=== PATIENT | female | born 1980 | race Caucasian/White ===

== ENCOUNTER → 2020-07-16 16:58 | Outpatient (CLI) | payer OTHER, SELFPAY ==
--- NOTE | 2020-07-16 17:06 | MRI_ITS ---
STUDY: MRI CERVICAL SPINE WITHOUT CONTRAST REASON FOR EXAM: Female, 39 years old. Chronic neck pain, radiation to arms TECHNIQUE: Standardized fat and water weighted pulse sequences were obtained in the sagittal and axial planes. COMPARISON: None FINDINGS: Craniocervical junction and cervical spine are intact and aligned with normal marrow and paraspinal soft tissues. Spinal cord is minimally compressed at C6-C7 due to ventral spondylosis. Remainder of the levels have patent canal. Foramina are patent at all levels. Spinal cord is normal in size, shape and signal. MRI/Spine Cervical (Routine) IMPRESSION: 1. Minimal spondylotic cord compression at C6-C7. Electronically Signed: Georges Santos, at 19:01 EDT Tel , Service support ,
== END ==
PROVIDERS: Referring Provider Chiropractor; Visit Provider Chiropractor
DX: M54.12 Radiculopathy, cervical region (principal)
CPT/HCPCS: 72141

== ENCOUNTER → 2020-09-01 15:52 | Outpatient (CLI) | payer OTHER, SELFPAY ==
[2020-09-01 15:13] VITALS: BMI 32.3
[2020-09-01 15:54] LABS: Mucous, Urine 0 SEEN /hpf (<or=2+)
[2020-09-01 16:50] LABS: Color, Urine Yellow (Yellow); Glucose, Dipstick Normal (Normal); Ketone-Dipstick 5 mg/dl (Negative); Leukocyte Esterase-Dipstick 500 /ul (Negative); Nitrite-Dipstick Negative (Negative); Occult Blood-Urine 10 /ul (Negative); Protein-Dipstick 15 mg/dl (Negative); Specific Gravity, Urine 1.025 (1.002-1.030); Urine Bilirubin Dipstick Negative (Negative); Urine Clarity Cloudy (Clear); Urine Urobilinogen 4 mg/dl (Normal)
[2020-09-01 16:54] LABS: Absolute Lymphocyte Count 5.13 X10^3/uL (0.83-4.51); Absolute Neutrophil Count 6.5 X10^3/uL (2.0-7.7); Basophil# 0.09 X10^3/uL; Basophil% 0.7 % (0-1); Eosinophils% 3.8 % (0-5); Hematocrit 50.1 % (37-47); Hemoglobin 15.9 g/dL (12.0-15.0); Lymphocyte # 5.13 X10^3/ul (4.0); Lymphocyte % 39.4 % (19-41); Mean Corp Hgb Conc 31.7 g/dL (32-36); Mean Corpuscular Hgb 28.7 pg (27.0-32.0); Mean Corpuscular Volume 90.4 fL (81-99); Mean Platelet Vol. 10.9 fl (6.2-12.0); Monocyte# 0.81 X10^3/uL; Monocyte% 6.2 % (0-10); NRBC Flagged by Analyzer 0 % (0-5); Neutrophil # 6.45 X10^3/uL (2.7-7.7); Neutrophil % 49.5 % (47-70); POSITIVE DIFFERENTIAL YES; Platelet Count 388 K/mm3 (150-450); RBC Distribution Width CV 12.9 % (11.6-14.6); RBC Distribution Width SD 43.2 fl (35.1-43.9); Red Blood Count 5.54 M/mm3 (4.2-5.4)
[2020-09-01 17:05] LABS: Differential Indicated SCAN CRITERIA MET
[2020-09-01 17:13] LABS: ALB/GLOB Ratio 1.1 RATIO (0.9-2.4); AST(SGOT) 13 U/L (15-37); Alanine Aminotransfer ALT/SGPT 26 U/L (13-56); Albumin, Serum 3.9 g/dL (3.2-5.0); Alkaline Phosphatase 83 U/L (45-117); Anion Gap 8 (5-15); BUN 11 mg/dL (7-18); BUN/Creat Ratio 14.3 RATIO (10-20); Calcium,Total 9.2 mg/dL (8.5-10.1); Chloride 107 mmol/L (98-107); Cholesterol 233 mg/dL (200); Creatinine, Serum 0.77 mg/dL (0.55-1.02); EST Glomerular Filtration Rate 89 mL/min (>60); Est Glom Filt Rate - Afr Amer 108 mL/min (>60); Globulin 3.6 g/dL (2.2-4.2); Glucose 95 mg/dL (74-106); High Density Lipoprotein 30 mg/dL; Potassium 3.6 mmol/L (3.5-5.1); Protein, Total 7.5 g/dL (6.4-8.2); Sodium Level 140 mmol/L (136-145); T4 Free Direct 1.26 ng/dL (0.76-1.46); Thyroid Stim Hormone (TSH) 3.95 uIU/mL (0.358-3.74); Triglycerides 314 mg/dL; Very Low Density Lipoprotein 63 mg/dL (5-40)
[2020-09-01 17:31] LABS: White Blood Cells 25-50 SEEN /hpf (0-5)
[2020-09-01 17:32] LABS: Bacteria 2+ /hpf (None Seen); Red Blood Cells-Urine 0 SEEN /hpf (0-5); Squamous Epithelial Cells - UA 10-25 SEEN /hpf (5-10)
[2020-09-01 18:02] LABS: Differential Comment SCANNED
== END ==
PROVIDERS: PCP Internal Medicine; Referring Provider Internal Medicine; Visit Provider Internal Medicine
DX: E66.9 Obesity, unspecified (principal); I10 Essential (primary) hypertension; F31.9 Bipolar disorder, unspecified; N39.0 Urinary tract infection, site not specified; Z13.29 Encounter for screening for other suspected endocrine disorder
CPT/HCPCS: 36415; 80053; 80061; 81001; 84439; 84443; 85025; 87086; 87088

== ENCOUNTER → 2020-10-06 | Outpatient (CLI) | payer OTHER, SELFPAY ==
[2020-10-06 10:37] VITALS: BMI 32.9
[2020-10-09 20:07] LABS: Chlamydia By Nucleic Acid AMP Negative (Negative)
[2020-10-09 20:49] LABS: Gonococcus By Nucleic Acid AMP Negative (Negative)
[2020-10-12 08:07] LABS: HPV APTIMA, High Risk Negative (Negative)
== END | disposition home or self-care (01) ==
LOC: LABSPEC 14:28
PROVIDERS: PCP Internal Medicine; Visit Provider Nurse Practitioner Women's Health
DX: Z11.3 Encounter for screening for infections with a predominantly sexual mode of transmission (principal); Z12.4 Encounter for screening for malignant neoplasm of cervix; N89.8 Other specified noninflammatory disorders of vagina
CPT/HCPCS: 87070; 87205; 87491; 87591; 87624; 88175; G0145

== ENCOUNTER → 2021-08-02 13:30 | Outpatient (CLI) | payer OTHER, SELFPAY | PROVIDERS: PCP Internal Medicine; Referring Provider Nurse Practitioner Family; Visit Provider Nurse Practitioner Family | DX: J06.9 Acute upper respiratory infection, unspecified (principal) | CPT/HCPCS: 87635; U0005; U0003 ==

== ENCOUNTER 2022-01-18 15:23 | Outpatient (CLI) | payer OTHER, SELFPAY ==
[2022-01-18 17:02] LABS: Absolute Lymphocyte Count 5.15 X10^3/uL (0.83-4.51); Absolute Neutrophil Count 6.3 X10^3/uL (2.0-7.7); Basophil# 0.08 X10^3/uL; Basophil% 0.6 % (0-1); Eosinophil# 0.23 X10^3/uL; Eosinophils% 1.8 % (0-5); Hematocrit 45.9 % (37-47); Lymphocyte # 5.15 X10^3/ul (0.83-4.51); Lymphocyte % 41.4 % (19-41); Mean Corp Hgb Conc 32.7 g/dL (32-36); Mean Corpuscular Hgb 29.4 pg (27.0-32.0); Mean Platelet Vol. 11.1 fl (6.2-12.0); Monocyte# 0.71 X10^3/uL; Monocyte% 5.7 % (0-10); NRBC Flagged by Analyzer 0 % (0-5); Neutrophil # 6.25 X10^3/uL (2.7-7.7); Neutrophil % 50.3 % (47-70); POSITIVE DIFFERENTIAL YES; POSITIVE MORPHOLOGY YES; Platelet Count 381 K/mm3 (150-450); RBC Distribution Width CV 13.4 % (11.6-14.6); RBC Distribution Width SD 44.8 fl (35.1-43.9); White Blood Count 12.5 K/mm3 (4.4-11.0)
[2022-01-18 17:12] LABS: AST(SGOT) 9 U/L (15-37); Alanine Aminotransfer ALT/SGPT 24 U/L (13-56); Albumin, Serum 3.6 g/dL (3.2-5.0); Alkaline Phosphatase 71 U/L (45-117); Anion Gap 7 (5-15); BUN 15 mg/dL (7-18); BUN/Creat Ratio 22.5 RATIO (10-20); Calcium,Total 8.9 mg/dL (8.5-10.1); Chloride 106 mmol/L (98-107); Cholesterol 184 mg/dL (200); Creatinine, Serum 0.67 mg/dL (0.55-1.02); EST Glomerular Filtration Rate 104 mL/min (>60); Est Glom Filt Rate - Afr Amer 126 mL/min (>60); Globulin 3.6 g/dL (2.2-4.2); Glucose 99 mg/dL (74-106); High Density Lipoprotein 29 mg/dL; Potassium 3.6 mmol/L (3.5-5.1); Protein, Total 7.2 g/dL (6.4-8.2); Sodium Level 140 mmol/L (136-145); Triglycerides 270 mg/dL; Very Low Density Lipoprotein 54 mg/dL (5-40)
[2022-01-18 17:32] LABS: Differential Indicated SCAN CRITERIA MET
[2022-01-18 17:56] LABS: Differential Comment SCANNED
== END 2022-01-18 23:59 | disposition home or self-care (01) ==
LOC: BIMLAB 15:24
PROVIDERS: PCP Internal Medicine; Referring Provider Internal Medicine; Visit Provider Internal Medicine
DX: I10 Essential (primary) hypertension (principal)
CPT/HCPCS: 36415; 80053; 80061; 85025

== ENCOUNTER → 2022-09-06 | Outpatient (CLI) | payer OTHER, SELFPAY ==
[2022-09-06 09:55] LABS: Mucous, Urine 0 SEEN /hpf (<or=2+); Red Blood Cells-Urine 0 SEEN /hpf (0-5)
[2022-09-06 12:02] LABS: Absolute Neutrophil Count 8.2 X10^3/uL (2.0-7.7); Basophil# 0.09 X10^3/uL; Basophil% 0.6 % (0-1); Color, Urine Yellow (Yellow); Eosinophil# 0.27 X10^3/uL; Eosinophils% 1.8 % (0-5); Glucose, Dipstick Normal (Normal); Hemoglobin 16.1 g/dL (12.0-15.0); Ketone-Dipstick 15 mg/dl (Negative); Leukocyte Esterase-Dipstick 500 /ul (Negative); Lymphocyte % 36.2 % (19-41); Mean Corp Hgb Conc 32.9 g/dL (32-36); Mean Corpuscular Hgb 29.5 pg (27.0-32.0); Mean Corpuscular Volume 89.7 fL (81-99); Mean Platelet Vol. 11.1 fl (6.2-12.0); Monocyte# 0.88 X10^3/uL; Monocyte% 5.9 % (0-10); NRBC Flagged by Analyzer 0 % (0-5); Neutrophil # 8.22 X10^3/uL (2.7-7.7); Neutrophil % 55.2 % (47-70); Nitrite-Dipstick Negative (Negative); Occult Blood-Urine 10 /ul (Negative); POSITIVE DIFFERENTIAL YES; Platelet Count 414 K/mm3 (150-450); Protein-Dipstick 30 mg/dl (Negative); RBC Distribution Width CV 13.2 % (11.6-14.6); RBC Distribution Width SD 43.5 fl (35.1-43.9); Red Blood Count 5.46 M/mm3 (4.2-5.4); Urine Clarity Clear (Clear); Urine Urobilinogen 4 mg/dl (Normal); White Blood Count 14.9 K/mm3 (4.4-11.0)
[2022-09-06 12:04] LABS: Differential Indicated SCAN CRITERIA MET
[2022-09-06 12:17] LABS: Urine Bilirubin Dipstick 1 mg/dL (Negative)
[2022-09-06 12:26] LABS: White Blood Cells 10-25 SEEN /hpf (0-5)
[2022-09-06 12:27] LABS: Bacteria 1+ /hpf (None Seen); Platelet Estimate ADEQUATE (ADEQ); Red Cell Morphology NORM C+C NORMAL (NORM C&C); Squamous Epithelial Cells - UA 0-5 SEEN /hpf (5-10); Uric Acid Crystals Ur 2+ /hpf (<or=1+)
== END | disposition home or self-care (01) ==
LOC: BIMLAB 09:54
PROVIDERS: PCP Internal Medicine; Referring Provider Internal Medicine; Visit Provider Internal Medicine
DX: N39.0 Urinary tract infection, site not specified (principal); I10 Essential (primary) hypertension
CPT/HCPCS: 36415; 81001; 85025; 87086; 87088

== ENCOUNTER → 2022-12-08 | Outpatient (CLI) | payer OTHER, SELFPAY ==
[2022-12-08 11:28] LABS: Red Blood Cells-Urine 0 SEEN /hpf (0-5)
[2022-12-08 12:28] LABS: Color, Urine Yellow (Yellow); Glucose, Dipstick Normal (Normal); Ketone-Dipstick Negative (Negative); Leukocyte Esterase-Dipstick 100 /ul (Negative); Nitrite-Dipstick Negative (Negative); Occult Blood-Urine Negative /ul (Negative); Protein-Dipstick Negative (Negative); Urine Bilirubin Dipstick Negative (Negative); Urine Clarity Sl. Cloudy (Clear); Urine Urobilinogen Normal (Normal)
[2022-12-08 12:42] LABS: Anion Gap 7 (5-15); BUN 10 mg/dL (7-18); BUN/Creat Ratio 14.2 RATIO (10-20); Calcium,Total 9.5 mg/dL (8.5-10.1); Chloride 109 mmol/L (98-107); Cholesterol 205 mg/dL (200); EST Glomerular Filtration Rate 98 mL/min (>60); Est Glom Filt Rate - Afr Amer 118 mL/min (>60); Glucose 104 mg/dL (74-106); High Density Lipoprotein 32 mg/dL; Potassium 4.5 mmol/L (3.5-5.1); Sodium Level 141 mmol/L (136-145); Triglycerides 186 mg/dL; Very Low Density Lipoprotein 37 mg/dL (5-40)
[2022-12-08 12:47] LABS: Bacteria 1+ /hpf (None Seen); Mucous, Urine 1+ /hpf (<or=2+); Squamous Epithelial Cells - UA 0-5 SEEN /hpf (5-10); White Blood Cells 10-25 SEEN /hpf (0-5)
== END | disposition home or self-care (01) ==
LOC: BIMLAB 09:58
PROVIDERS: PCP Internal Medicine; Referring Provider Internal Medicine; Visit Provider Internal Medicine
DX: N39.0 Urinary tract infection, site not specified (principal); R30.0 Dysuria; I10 Essential (primary) hypertension
CPT/HCPCS: 36415; 80048; 80061; 81001; 87086; 87088

== ENCOUNTER → 2023-06-01 | Outpatient (CLI) | payer OTHER, SELFPAY ==
[2023-06-01 16:46] LABS: Absolute Lymphocyte Count 4.23 X10^3/uL (0.83-4.51); Absolute Neutrophil Count 6.9 X10^3/uL (2.0-7.7); Basophil# 0.08 X10^3/uL; Basophil% 0.7 % (0-1); Eosinophil# 0.28 X10^3/uL; Eosinophils% 2.3 % (0-5); Hematocrit 46.7 % (37-47); Hemoglobin 15.4 g/dL (12.0-15.0); Lymphocyte # 4.23 X10^3/ul (0.83-4.51); Lymphocyte % 34.7 % (19-41); Mean Corpuscular Hgb 29.8 pg (27.0-32.0); Mean Corpuscular Volume 90.3 fL (81-99); Mean Platelet Vol. 10.5 fl (6.2-12.0); Monocyte# 0.68 X10^3/uL; Monocyte% 5.6 % (0-10); NRBC Flagged by Analyzer 0 % (0-5); Neutrophil # 6.89 X10^3/uL (2.7-7.7); Neutrophil % 56.5 % (47-70); Platelet Count 403 K/mm3 (150-450); RBC Distribution Width SD 46.8 fl (35.1-43.9); Red Blood Count 5.17 M/mm3 (4.2-5.4); White Blood Count 12.2 K/mm3 (4.4-11.0)
[2023-06-01 17:05] LABS: AST(SGOT) 11 U/L (15-37); Alanine Aminotransfer ALT/SGPT 30 U/L (13-56); Albumin, Serum 3.6 g/dL (3.2-5.0); Alkaline Phosphatase 73 U/L (45-117); Anion Gap 5 (5-15); BUN 14 mg/dL (7-18); BUN/Creat Ratio 18.3 RATIO (10-20); Chloride 107 mmol/L (98-107); Cholesterol 213 mg/dL (200); Creatinine, Serum 0.77 mg/dL (0.55-1.02); EST Glomerular Filtration Rate 88 mL/min (>60); Est Glom Filt Rate - Afr Amer 107 mL/min (>60); Globulin 3.6 g/dL (2.2-4.2); Glucose 105 mg/dL (74-106); High Density Lipoprotein 34 mg/dL; Potassium 3.9 mmol/L (3.5-5.1); Protein, Total 7.2 g/dL (6.4-8.2); Sodium Level 137 mmol/L (136-145); Triglycerides 166 mg/dL; Very Low Density Lipoprotein 33 mg/dL (5-40)
== END | disposition home or self-care (01) ==
LOC: BIMLAB 15:18
PROVIDERS: PCP Internal Medicine; Referring Provider Internal Medicine; Visit Provider Internal Medicine
DX: I10 Essential (primary) hypertension (principal)
CPT/HCPCS: 36415; 80053; 80061; 85025

== ENCOUNTER → 2023-12-14 | Outpatient (CLI) | payer OTHER, SELFPAY ==
--- OUTSIDE RECORDS SUMMARY | 2023-12-14 16:35 | XMS RPT_ITS | CCD ---
Author Name Unknown Address [address] [place] [address] Organization [facility] Results Test Name Value Interpretation Reference Range Facil ity Encounters Encounter Date Encounter Type Care Provider Facility Start: 02-04-2019 End: 02-05-2019 Patient encounter procedure [facility] Summary Purpose Family History No Family History Records Found Advance Directives No Advanced Directives Records Found Additional Source Comments INFORMATION SOURCE (unrecogn ized section and content) FOR RECORDS PERTAINING TO PATIENTS WHO ARE OR HAVE BEEN ENROLLED IN A CHEMICAL DEPENDENCY/SUBSTANCEABUSE PROGRAM, SOME INFORMATION MAY BE OMITTED. This clinical summary was aggregated from multiple sources. Caution should be exercised in using it in the provision of clinical care. This summary normalizes information from multiple sources, and as a consequence, information in this document may materially change the coding, format and clinical context of patient data. In addition, data may be omitted in some cases. CLINICAL DECISIONS SHOULD BE BASED ON THE PRIMARY CLINICAL RECORDS. [employer] provides no warranty or guarantee of the accuracy or completeness of information in this document.
[2023-12-14 16:43] LABS: Absolute Neutrophil Count 6.9 X10^3/uL (2.0-7.7); Basophil% 0.9 % (0-1); Eosinophil# 0.19 X10^3/uL; Eosinophils% 1.7 % (0-5); Hematocrit 49.1 % (37-47); Lymphocyte % 30.1 % (19-41); Mean Corp Hgb Conc 32.6 g/dL (32-36); Mean Corpuscular Hgb 28.3 pg (27.0-32.0); Mean Corpuscular Volume 86.7 fL (81-99); Mean Platelet Vol. 10.6 fl (6.2-12.0); Monocyte# 0.63 X10^3/uL; Monocyte% 5.6 % (0-10); NRBC Flagged by Analyzer 0 % (0-5); Neutrophil # 6.94 X10^3/uL (2.7-7.7); Neutrophil % 61.4 % (47-70); Platelet Count 381 K/mm3 (150-450); RBC Distribution Width CV 13.1 % (11.6-14.6); RBC Distribution Width SD 41.6 fl (35.1-43.9); Red Blood Count 5.66 M/mm3 (4.2-5.4); White Blood Count 11.3 K/mm3 (4.4-11.0)
[2023-12-14 17:18] LABS: ALB/GLOB Ratio 1.1 RATIO (0.9-2.4); AST(SGOT) 11 U/L (15-37); Alanine Aminotransfer ALT/SGPT 21 U/L (13-56); Albumin, Serum 3.8 g/dL (3.2-5.0); Alkaline Phosphatase 83 U/L (45-117); Anion Gap 4 (5-15); BUN 10 mg/dL (7-18); BUN/Creat Ratio 13.6 RATIO (10-20); Calcium,Total 9.2 mg/dL (8.5-10.1); Chloride 107 mmol/L (98-107); Creatinine, Serum 0.73 mg/dL (0.55-1.02); EST Glomerular Filtration Rate 93 mL/min (>60); Est Glom Filt Rate - Afr Amer 112 mL/min (>60); Globulin 3.4 g/dL (2.2-4.2); Glucose 98 mg/dL (74-106); Potassium 3.9 mmol/L (3.5-5.1); Protein, Total 7.2 g/dL (6.4-8.2); Sodium Level 137 mmol/L (136-145); T4 Free Direct 1.25 ng/dL (0.76-1.46); Thyroid Stim Hormone (TSH) 3.24 uIU/mL (0.358-3.74)
== END | disposition home or self-care (01) ==
LOC: BIMLAB 15:58
PROVIDERS: PCP Internal Medicine; Visit Provider Internal Medicine
DX: Z13.29 Encounter for screening for other suspected endocrine disorder (principal); F31.9 Bipolar disorder, unspecified
CPT/HCPCS: 36415; 80053; 84439; 84443; 85025

== ENCOUNTER 2024-02-16 18:07 | Emergency (ER) | payer OTHER, SELFPAY ==
[2024-02-16 18:07] VITALS: BP 169/106; PULSE 130; RESP 18; TEMP 36.6; O2SAT 97; BMI 24.9
[2024-02-16 18:15] VITALS: O2SAT 97
--- NOTE | 2024-02-16 18:46 | ED.VIS.DYS ---
HPI History of Present Illness Chief Complaint: Shortness of Breath Informant: patient Onset/Context/Timing Onset: Weeks (1-2) Context: gradual Timing: Continuous Quality: Positive for - (Cannot catch my breath) Worsened by: Nothing Relieved by: - (TheraFlu) Associated Symptoms cough, rhinorrhea, sore throat, subjective and chills; Negative for post nasal drip, ear pain, fever, sweats, clear sputum, white sputum, yellow sputum or green sputum Narrative Narrative: Patient presents with shortness of breath that has been getting worse over the past 1 to 2 weeks. Patient states it is constant. Patient states she has been taking some TheraFlu at home with some improvement. Patient states she has a cough. Patient states she is coughing up some mucus but does not know the color of it. Patient also admits to a sore throat and rhinorrhea. Patient admits to some subjective chills but did not take her temperature. Patient denies any chest pain. Patient also admits to a mild headache. Patient states her has similar symptoms and is being seen here in the emergency department as well. [facility] Medical History Acute sinusitis Bipolar 1 disorder Burning with urination Chronic sinusitis Depression GERD (gastroesophageal reflux disease) Insomnia Migraines Nausea Obesity (BMI 30.0-34.9) Rheumatoid arthritis Screening for thyroid disorder Seasonal affective disorder Seasonal allergies Tobacco abuse UTI (urinary tract infection) Home Medications levonorgestrel 21 mcg/24 hours (8 yrs) 52 mg intrauterine device (Mirena) 1 device intrauterine ONCE 09/01/20 [History Last Taken Unknown] omeprazole 40 mg capsule,delayed release 40 mg PO DAILY #90 caps 12/08/22 [Rx Last Taken Unknown] albuterol sulfate 90 mcg/actuation aerosol inhaler 2 puff inhalation Q6H PRN shortness of breath or wheezing #8.5 grams 03/07/23 [Rx Last Taken Unknown] amlodipine 5 mg tablet 5 mg PO DAILY #90 tabs 09/07/23 [Rx Last Taken Unknown] levocetirizine 5 mg tablet (Xyzal) 5 mg PO QPM PRN allergy symptoms #90 tabs 09/07/23 [Rx Last Taken Unknown] sodium chloride 3 % nasal mist spray intranasal BID 09/07/23 [History Last Taken Unknown] triamcinolone acetonide 55 mcg/actuation nasal spray,aerosol mcg intranasal DAILY 09/07/23 [History Last Taken Unknown] Allergy/AdvReac Type Severity Reaction Status Date / Time hazelnut Allergy Intermediate Food Verified 02/16/24 18:09 Allergy Penicillins Allergy Mild Rash Verified 02/16/24 18:09 Family History Father Colon cancer Mother Osteoporosis Cancer brain cx Diabetes Other Arthritis Depression Surgical History History of rhinoplasty History of tubal ligation Social History household members: spouse number of children: 3 current occupational status: unemployed history of recent travel: No sexually active: No Smoking Status: Current every day smoker tobacco type: e-cigarettes Tobacco: How many years used: 24 alcohol intake: never substance use type: does not use what type of physical activity do you participate in: none seatbelt use: always do you feel safe at home: Yes additional social history: - Sharath AREVALO ROS ED Constitutional Constitutional ED: Denies chills or fever(s) Eyes Eyes: Denies blurry vision or change in vision ENT ENT ED: Reports sore throat; Denies rhinorrhea Cardiovascular Cardiovascular: Denies chest pain or palpitations Respiratory/Chest Respiratory/Chest: Reports cough, dyspnea and sputum Gastrointestinal Gastrointestinal: Denies nausea or vomiting Genitourinary Genitourinary ED: Denies dysuria or hematuria Musculoskeletal Musculoskeletal: Reports neck pain; Denies back pain Integumentary Denies abscess or rash Neurologic Neurologic: Reports headache(s); Denies weakness Allergic/Immunologic Allergic/Immunologic ED: Denies mouth swelling or urticaria EXAM Physical Exam Const Vital Signs: 02/16/24 18:07 02/16/24 18:15 02/16/24 19:02 Temperature 97.9 F Temperature Source Temporal Pulse Rate 130 H 103 H Respiratory Rate 18 18 Respiratory Effort Normal Non-Labored Respiratory Depth Normal Respiratory Pattern Normal Blood Pressure 169/106 H Blood Pressure Mean 127 Pulse Ox 97 Oxygen Delivery Method Room Air Room Air 02/16/24 20:02 Temperature Temperature Source Pulse Rate 96 Respiratory Rate 18 Respiratory Effort Respiratory Depth Respiratory Pattern Blood Pressure 131/89 H Blood Pressure Mean 103 Pulse Ox 97 Oxygen Delivery Method Room Air Positive well nourished and well developed General Appearance ED: well developed and NAD HEENT Reports moist mucous membranes Neck supple, no meningeal signs and no JVD Resp normal respiratory effort Auscultation: diminished lung sounds diffuse Cardio regular rhythm Rate: tachycardic GI non-tender and non-distended Palpation: soft Extremity normal to inspection General Extremety ED: Negative for tenderness Neuro oriented x3, CN's II-XII intact bilaterally and no sensory deficits noted Shahid Coma Scale: document GCS findings Spontaneous Obeys Commands Oriented 15 Sensorium / Orientation: alert Psych mental status grossly normal MDM MDM MDM Narrative Medical decision making narrative: Differential diagnosis includes pneumonia, bronchitis, viral illness, and COPD. Chest x-ray will be obtained to assess for pneumonia and COPD. COVID-19, influenza, and RSV PCR will be obtained to assess for viral infection. Lab Data Lab results narrative: COVID-19 PCR was reviewed and was negative. Influenza PCR was reviewed and was negative for influenza A and influenza B. RSV PCR was reviewed and was positive. Radiography Diagnostic Testing: Clinical Impression(s) from Imaging Studies Chest X-Ray 02/16/24 19:07 IMPRESSION: No radiographic evidence of acute cardiopulmonary disease. Electronically Signed: Fadi Canchola DO at 19:38 EDT , PA and lateral chest x-ray was obtained. There are 2 views. On my independent interpretation, lung hackett are clear. There is normal cardiac silhouette. Bony thorax is normal. There is no acute process noted. Radiologist also interpreted the x-ray and agrees. Treatment and Re-Evaluation :: Smoking cessation was discussed. Patient was given a DuoNeb aerosol here. Patient is feeling better on reevaluation. Patient was advised of her findings. Patient was instructed to drink plenty of fluids. Patient was instructed to take Tylenol or ibuprofen as needed for pain. Patient was instructed to follow-up with her primary care physician in 5 to 7 days. Patient understood and was agreeable with the plan. All questions were answered. Discharge Plan Triage Chief Complaint: Shortness of Breath ED Provider: Karl Block Dx/Rx/DC Orders Clinical Impression: RSV bronchitis, Tobacco abuse Instructions: ED RSV Bronchiolitis Prescriptions: No Action levonorgestrel 20 mcg/24 hours (5 yrs) 52 mg intrauterine device 20 mcg/24 hours (5 yrs) 52 mg intrauterine device 1 device intrauterine ONCE Rx Instructions: as a single dose omeprazole 40 mg capsule,delayed release(DR/EC) 40 mg PO DAILY Qty: 90 3RF Rx Instructions: Take 30 minutes before breakfast sodium chloride 3 % mist intranasal BID triamcinolone acetonide 55 mcg/actuation aerosol intranasal DAILY Rx Instructions: 2 SPRAYS/NOSTRIL DAILY amlodipine 5 mg tablet 5 mg PO DAILY Qty: 90 3RF levocetirizine [Xyzal] 5 mg tablet 5 mg PO QPM PRN (Reason: allergy symptoms) Qty: 90 3RF albuterol sulfate 90 mcg/actuation HFA aerosol inhaler 2 puff inhalation Q6H PRN (Reason: shortness of breath or wheezing) Qty: 8.5 2RF Primary Care Provider: Yoon Blevins Referrals: Yoon Blevins MD [Primary Care Provider] - 5-7 Days Disposition Disposition: Home, Self Care
[2024-02-16] MEDS: Ipratropium/Albuterol Sulfate 3 ML AMPUL.NEB INHALATION (18:59)
[2024-02-16 19:02] VITALS: PULSE 103; RESP 18
--- NOTE | 2024-02-16 19:07 | RAD_ITS ---
EXAM: XR CHEST, 2 VIEWS CLINICAL INDICATION: COUGH, SOB, SORE THROAT TECHNIQUE: Frontal and lateral views of the chest. COMPARISON: No relevant prior studies available. FINDINGS: LUNGS AND PLEURAL SPACES: No significant abnormality. No consolidation or edema. No pneumothorax. No effusion. HEART: No significant abnormality. Cardiac silhouette not enlarged. MEDIASTINUM: Central airways and mediastinal contour are unremarkable. BONES/JOINTS: No significant abnormality. No acute fracture. SOFT TISSUES: No significant abnormality. RAD/Chest PA and Lateral IMPRESSION: No radiographic evidence of acute cardiopulmonary disease. Electronically Signed: Fadi Canchola DO at 19:38 EDT ,
[2024-02-16 20:02] VITALS: BP 131/89; PULSE 96; RESP 18; O2SAT 97
[2024-02-16 20:30] VITALS: BP 131/89; PULSE 96; RESP 18; TEMP 36.8; O2SAT 97
== END 2024-02-16 20:30 | disposition home or self-care (01) ==
PROVIDERS: Emergency Provider Emergency Medicine; PCP Internal Medicine; Visit Provider Emergency Medicine
DX: J20.5 Acute bronchitis due to respiratory syncytial virus (principal); K21.9 Gastro-esophageal reflux disease without esophagitis; Z98.51 Tubal ligation status; F17.290 Nicotine dependence, other tobacco product, uncomplicated
CPT/HCPCS: 71046; 87631; 94640; 99282

== ENCOUNTER → 2024-06-27 | Outpatient (CLI) | payer OTHER, SELFPAY ==
[2024-06-27 15:29] LABS: ALB/GLOB Ratio 0.9 RATIO (0.9-2.4); AST(SGOT) 21 U/L (15-37); Alanine Aminotransfer ALT/SGPT 38 U/L (13-56); Albumin, Serum 3.6 g/dL (3.2-5.0); Alkaline Phosphatase 79 U/L (45-117); Anion Gap 5 (5-15); BUN 6 mg/dL (7-18); BUN/Creat Ratio 8.1 RATIO (10-20); Calcium,Total 8.9 mg/dL (8.5-10.1); Chloride 106 mmol/L (98-107); Cholesterol 184 mg/dL (200); Creatinine, Serum 0.74 mg/dL (0.55-1.02); EST Glomerular Filtration Rate 91 mL/min (>60); Est Glom Filt Rate - Afr Amer 111 mL/min (>60); Globulin 3.9 g/dL (2.2-4.2); Glucose 116 mg/dL (74-106); High Density Lipoprotein 48 mg/dL; Potassium 3.8 mmol/L (3.5-5.1); Protein, Total 7.5 g/dL (6.4-8.2); Sodium Level 137 mmol/L (136-145); Triglycerides 120 mg/dL; Very Low Density Lipoprotein 24 mg/dL (5-40)
== END | disposition home or self-care (01) ==
LOC: BIMLAB 13:29
PROVIDERS: PCP Internal Medicine; Referring Provider Internal Medicine; Visit Provider Internal Medicine
DX: I10 Essential (primary) hypertension (principal)
CPT/HCPCS: 36415; 80053; 80061

== ENCOUNTER → 2024-08-08 | Outpatient (CLI) | payer OTHER, SELFPAY ==
--- NOTE | 2024-08-08 14:31 | BI_ITS ---
MAMMOGRAPHY - BILATERAL SCREENING REASON FOR EXAM: Female, 43 years old. Routine annual screening examination. PERTINENT HISTORY: Non-contributory. TECHNIQUE: Digital bilateral breast veronica (3D mammographic acquisition) in the CC and MLO projections. 2-D mediolateral oblique (MLO) and craniocaudad (CC) views of both breasts were obtained. CAD: Full Field Digital Mammography with Computer Added Detection was performed. COMPARISON: None. Baseline examination. FINDINGS: Breast Composition: The breasts are heterogeneously dense, which may obscure small masses. There are no dominant masses or suspicious calcifications. Small benign-appearing bilateral axillary lymph nodes. No other significant abnormalities are identified. BI/SCRN MAMM (CAD)W/VERONICA BILAT IMPRESSION: Negative screening mammogram. Yearly followup mammogram recommended. (A) ASSESSMENT CATEGORY: BIRADS Category 2: Benign. A letter regarding these results will be sent to the patient by the facility within 30 days. Approximately 10% of breast cancers are not detected by mammography. A normal mammogram should not delay biopsy of a clinically suspicious abnormality. [id number] Electronically Signed: Brennan Franco MD at 10:50 EDT ,
== END | disposition home or self-care (01) ==
PROVIDERS: PCP Internal Medicine; Referring Provider Internal Medicine; Visit Provider Internal Medicine
DX: Z12.31 Encounter for screening mammogram for malignant neoplasm of breast (principal)
CPT/HCPCS: 77063; 77067

== ENCOUNTER → 2025-02-20 | Outpatient (CLI) | payer BC, SELFPAY ==
[2025-02-20 18:12] LABS: Absolute Lymphocyte Count 3.79 X10^3/uL (0.83-4.51); Absolute Neutrophil Count 5.7 X10^3/uL (2.0-7.7); Basophil# 0.09 X10^3/uL; Basophil% 0.9 % (0-1); Eosinophil# 0.16 X10^3/uL; Eosinophils% 1.5 % (0-5); Hematocrit 44.4 % (37-47); Hemoglobin 14.3 g/dL (12.0-15.0); Lymphocyte # 3.79 X10^3/ul (0.83-4.51); Mean Corp Hgb Conc 32.2 g/dL (32-36); Mean Corpuscular Volume 87.1 fL (81-99); Mean Platelet Vol. 10.6 fl (6.2-12.0); Monocyte% 6.7 % (0-10); NRBC Flagged by Analyzer 0 % (0-5); Neutrophil # 5.73 X10^3/uL (2.7-7.7); Neutrophil % 54.4 % (47-70); Platelet Count 444 K/mm3 (150-450); RBC Distribution Width CV 13.2 % (11.6-14.6); RBC Distribution Width SD 42.5 fl (35.1-43.9); White Blood Count 10.5 K/mm3 (4.4-11.0)
[2025-02-20 18:29] LABS: ALB/GLOB Ratio 1.4 RATIO (0.9-2.4); AST(SGOT) 22 U/L (<=31); Alanine Aminotransfer ALT/SGPT 23 U/L (<=34); Albumin, Serum 4.2 g/dL (3.5-5.0); Alkaline Phosphatase 97 U/L (35-104); Anion Gap 13 (5-15); BUN 8 mg/dL (4-19); BUN/Creat Ratio 12.3 RATIO (10-20); Calcium,Total 9.5 mg/dL (7.6-11.0); Carbon Dioxide 21.3 mmol/L (21.0-32.0); Chloride 106 mmol/L (98-108); Creatinine, Serum 0.65 mg/dL (0.70-1.20); EST Glomerular Filtration Rate 113 (>60); Globulin 2.9 g/dL (2.2-4.2); Glucose 116 mg/dL (70-99); Potassium 3.9 mmol/L (3.3-5.1); Protein, Total 7.1 g/dL (5.9-8.4); Sodium Level 140 mmol/L (133-145); Total Bilirubin 0.19 mg/dL (0.00-1.30)
== END | disposition home or self-care (01) ==
LOC: BIMLAB 15:41
PROVIDERS: PCP Internal Medicine; Referring Provider Internal Medicine; Visit Provider Internal Medicine
DX: I10 Essential (primary) hypertension (principal); K21.9 Gastro-esophageal reflux disease without esophagitis
CPT/HCPCS: 36415; 80053; 85025

== ENCOUNTER 2025-04-04 14:01 | Emergency (ER) | payer BC, SELFPAY ==
[2025-04-04 14:03] VITALS: BP 139/111; PULSE 106; RESP 20; TEMP 36.1; O2SAT 100
[2025-04-04 14:06] VITALS: BMI 36.6
--- NOTE | 2025-04-04 14:19 | CT_ITS ---
EXAM: CT Abdomen and Pelvis Without Intravenous Contrast CLINICAL INDICATION: PAIN TECHNIQUE: Axial computed tomography images of the abdomen and pelvis without intravenous contrast. This CT exam was performed using one or more of the following dose reduction techniques: automated exposure control, adjustment of the mA and/or kV according to patient size, and/or use of iterative reconstruction technique. COMPARISON: No relevant prior studies available. FINDINGS: LUNG BASES: Unremarkable. No mass. No consolidation. MEDIASTINUM: Small esophageal hiatal hernia. ABDOMEN: LIVER: Hepatomegaly with fatty infiltration. GALLBLADDER AND BILE DUCTS: Unremarkable. No calcified stones. No ductal dilation. PANCREAS: Unremarkable. No ductal dilation. SPLEEN: Unremarkable. No splenomegaly. ADRENALS: Unremarkable. No mass. KIDNEYS AND URETERS: Left nephrolithiasis with mild hydronephrosis. No obstructing calculus. STOMACH AND BOWEL: Unremarkable. No obstruction. No mucosal thickening. PELVIS: APPENDIX: No findings to suggest acute appendicitis. BLADDER: Unremarkable. No stones. REPRODUCTIVE: Unremarkable as visualized. ABDOMEN and PELVIS: INTRAPERITONEAL SPACE: Unremarkable. No free air. No significant fluid collection. BONES/JOINTS: No acute fracture. No dislocation. SOFT TISSUES: Umbilical hernia containing fat. VASCULATURE: Unremarkable. No abdominal aortic aneurysm. LYMPH NODES: Unremarkable. No enlarged lymph nodes. CT/Abdomen/Pelvis without Cont IMPRESSION: 1. Left nephrolithiasis with mild hydronephrosis. No obstructing calculus. 2. Small esophageal hiatal hernia. 3. Hepatomegaly with fatty infiltration. 4. Umbilical hernia containing fat. Reading Location: [id number]
--- NOTE | 2025-04-04 14:20 | EDS_ITS ---
HPI <Александр Koenig MD - Last Filed: 04/08/25 09:00> History of Present Illness Chief Complaint: Abd Pain Narrative Narrative: 44-year-old female past medical history of bipolar disorder presents with nausea, vomiting, and left flank pain that began half an hour ago. She states that in the past remotely, she has had this pain before but was never evaluated for it. States it resolved on its own. While she states yesterday she vomited, 30 minutes ago she had sudden onset of sharp, stabbing left flank pain radiating towards the front. She states that she has had decreased urination today as well. No fevers or chills but she has had flashes of feeling hot and cold. She has vomited twice today without any blood in her emesis, denies any problems with bowel movements. No exacerbating or alleviating factors to her left flank pain. Started feeling increased nausea and wanted to vomit here in the emergency department. [facility] <Александр Koenig MD - Last Filed: 04/08/25 09:00> [facility] Medical History Health care maintenance Tobacco abuse, in remission Post viral syndrome Seasonal affective disorder Screening for thyroid disorder Chronic sinusitis Burning with urination UTI (urinary tract infection) Insomnia Obesity (BMI 30.0-34.9) Nausea GERD (gastroesophageal reflux disease) Acute sinusitis Tobacco abuse Depression Bipolar 1 disorder Migraines Rheumatoid arthritis Seasonal allergies Home Medications ?Medication ?Instructions ?Recorded ?Last Taken ?Type levonorgestrel (Mirena) 1 device intrauterine ONCE 1 Unknown History albuterol sulfate 90 mcg/actuation 2 puff inhalation Q 6H PRN 03/07/23 Unknown Rx aerosol inhaler shortness of breath or wheez ing #8.5 grams sodium chloride 3 % nasal mist 1 spray intranasal BID 09/07/23 04/03/25 History amlodipine 5 mg tablet 5 mg PO DAILY #90 tabs 02/2004/03/25 Rx bupropion HCl 100 mg tablet 100 mg PO BID 3 months #18 0 tabs 02/20/25 04/03/25 Rx levocetirizine 5 mg tablet (Xyzal) 5 mg PO QPM PRN all ergy symptoms 02/20/25 Unknown Rx #90 tabs omeprazole 40 mg capsule,delayed 40 mg PO DAILY PRN he artburn 02/20/25 Unknown History release hydrocodone-acetaminophen 5-325mg 1 tab PO Q6H PRN PRN Pain 3 days 04/04/25 Unknown Rx 5mg-325mg #10 TABLETS ondansetron 4 mg disintegrating 4 mg PO Q8H PRN PRN Na usea #10 tabs 04/04/25 Unknown Rx tablet triamcinolone acetonide 55 mcg 1 spray intranasal CANDIDO Y 04/04/25 04/03/25 Hi story nasal spray aerosol (Nasacort) nitrofurantoin 100 mg PO Q12H 5 days #10 ca ps 04/07/25 Unknown Rx monohydrate/macrocrystals 100 mg capsule (Macrobid) Allergy/AdvReac Type Severity Reaction Status Date / Time hazelnut Allergy Intermediate Food Verified 04/07/25 14:44 Allergy cat dander Allergy Mild Rash Verified 04/07/25 14:44 grass pollen Allergy Mild Rash Verified 04/07/25 14:44 Penicillins Allergy Mild Rash Verified 04/07/25 14:44 Family History Father Colon cancer Mother Osteoporosis Cancer brain cx Diabetes Other Arthritis Depression Surgical History History of rhinoplasty History of tubal ligation Social History household members: spouse number of children: 3 current occupational status: unemployed history of recent travel: No sexually active: No Smoking Status: Former smoker Tobacco: How many years used: 24 alcohol intake: never substance use type: does not use what type of physical activity do you participate in: none seatbelt use: always do you feel safe at home: Yes additional social history: - Sharath AREVALO <Александр Koenig MD - Last Filed: 04/08/25 09:00> ROS ED ROS Narrative Review of systems positive for left flank pain/low back pain radiating to front. Positive nausea and vomiting. Subjective fever, feelings of hot and cold. Decreased urination. No exacerbating or alleviating factors to her pain. EXAM <Александр Koenig MD - Last Filed: 04/08/25 09:00> Physical Exam Narrative Exam Narrative: Afebrile. Vital signs noted. Nontoxic-appearing. Cardiovascular examination reveals mild tachycardia. Lungs clear to auscultation bilaterally. Abdomen is soft and nontender without guarding or rebound. Positive bowel sounds. Positive CVA tenderness to percussion left. Started to dry heave on examination. Const Vital Signs: 04/04/25 14:03 04/04/25 16:02 Temperature 96.9 F L Temperature Source Temporal Pulse Rate 106 H 82 Respiratory Rate 20 H 18 Blood Pressure 139/111 H 182/119 H Blood Pressure Mean 120 140 Pulse Ox 100 97 Oxygen Delivery Method Room Air Room Air <Dr. Karl Block, - Last Filed: 04/04/25 16:55> Physical Exam Const Vital Signs: 04/04/25 14:03 04/04/25 16:02 Temperature 96.9 F L Temperature Source Temporal Pulse Rate 106 H 82 Respiratory Rate 20 H 18 Blood Pressure 139/111 H 182/119 H Blood Pressure Mean 120 140 Pulse Ox 100 97 Oxygen Delivery Method Room Air Room Air MDM <Александр Koenig MD - Last Filed: 04/08/25 09:00> [facility] Narrative Medical decision making narrative: Differential diagnosis includes but not limited to pyelonephritis versus ureterolithiasis versus diverticulitis versus musculoskeletal flank/back pain. I have lower suspicion for pancreatitis because her pain is in the left flank. She was treated with ondansetron, morphine, and Toradol. CT will be obtained to help rule out ureterolithiasis. I reviewed her laboratory work and she has a leukocytosis of 16.8 which may be demargination from her vomiting, hemoglobin 14.2, hematocrit 42.9, platelet count elevated at 475 which may be more of an acute phase reactant. Potassium is low at 2.9 which was replaced intravenously with 20 mill equivalents. Magnesium was ordered and is pending. BUN normal at 11 with creatinine 0.91. LFTs are grossly unremarkable. Lipase normal at 19, no evidence of pancreatitis. This point in time, patient turned over to Dr. Block to check the urinalysis and the CT scan and make final disposition on this patient. Care turned over to oncoming physician in stable condition. History & Record Review Discussion w/independent historian: Patient Lab Data Attestation: I reviewed the patient's lab results. Labs: Laboratory Results - last 24 hr 04/04/25 04/04/25 14:15 16:15 WBC 16.8 H RBC 5.01 Hgb 14.2 Hct 42.9 MCV 85.6 MCH 28.3 MCHC 33.1 RDW Std Deviation 41.7 RDW Coeff of [place] 13.4 Plt Count 475 H MPV 10.2 Immature Gran % (Auto) 0.500 Neut % (Auto) 54.5 Lymph % (Auto) 37.1 [place] % (Auto) 6.5 Eos % (Auto) 0.7 Baso % (Auto) 0.7 Absolute Neuts (auto) 9.2 H Absolute Lymphs (auto) 6.25 H Nucleated RBC % 0 Diff Path Review May foll Atypical Lymphocytes 3+ Platelet Estimate SLT INC Polychromasia 1+ Sodium 138 Potassium 2.9 L Chloride 102 Carbon Dioxide 18.3 L Anion Gap 18 H BUN 11 Creatinine 0.91 Est GFR (MDRD) Non-Af 81 BUN/Creatinine Ratio 11.8 Glucose 156 H Calcium 9.4 Magnesium 1.8 Total Bilirubin 0.28 AST 30 ALT 32 Alkaline Phosphatase 100 Total Protein 7.4 Albumin 4.4 Globulin 3.0 Albumin/Globulin Ratio 1.5 Lipase 19 Urine Color Yellow Urine Clarity Clear Urine pH 7.0 Ur Specific [place] 1.010 Urine Protein 30 H Urine Glucose (UA) 100 H Urine Ketones 50 H Urine Occult Blood 250 H Urine Nitrite Negative Urine Bilirubin Negative Urine Urobilinogen Normal Ur Leukocyte Esterase 100 H Urine RBC 10-25 SEEN Urine WBC 0-5 SEEN Ur Squamous Epith Cells 0-5 SEEN Urine Bacteria 1+ Urine Mucus 0 SEEN Radiography Diagnostic Testing: Clinical Impression(s) from Imaging Studies Abdomen/Pelvis CT 04/04/25 14:19 IMPRESSION: 1. Left nephrolithiasis with mild hydronephrosis. No obstructing calculus. 2. Small esophageal hiatal hernia. 3. Hepatomegaly with fatty infiltration. 4. Umbilical hernia containing fat. Reading Location: [facility] <Dr. Karl Block, DO - Last Filed: 04/04/25 16:55> [facility] Lab Data Labs: Laboratory Results - last 24 hr 04/04/25 04/04/25 14:15 16:15 WBC 16.8 H RBC 5.01 Hgb 14.2 Hct 42.9 MCV 85.6 MCH 28.3 MCHC 33.1 RDW Std Deviation 41.7 RDW Coeff of [place] 13.4 Plt Count 475 H MPV 10.2 Immature Gran % (Auto) 0.500 Neut % (Auto) 54.5 Lymph % (Auto) 37.1 [place] % (Auto) 6.5 Eos % (Auto) 0.7 Baso % (Auto) 0.7 Absolute Neuts (auto) 9.2 H Absolute Lymphs (auto) 6.25 H Nucleated RBC % 0 [address] Review May foll Atypical Lymphocytes 3+ Platelet Estimate SLT INC Polychromasia 1+ Sodium 138 Potassium 2.9 L Chloride 102 Carbon Dioxide 18.3 L Anion Gap 18 H BUN 11 Creatinine 0.91 Est GFR (MDRD) Non-Af 81 BUN/Creatinine Ratio 11.8 Glucose 156 H Calcium 9.4 Magnesium 1.8 Total Bilirubin 0.28 AST 30 ALT 32 Alkaline Phosphatase 100 Total Protein 7.4 Albumin 4.4 Globulin 3.0 Albumin/Globulin Ratio 1.5 Lipase 19 Urine Color Yellow Urine Clarity Clear Urine pH 7.0 Ur Specific [place] 1.010 Urine Protein 30 H Urine Glucose (UA) 100 H Urine Ketones 50 H Urine Occult Blood 250 H Urine Nitrite Negative Urine Bilirubin Negative Urine Urobilinogen Normal Ur Leukocyte Esterase 100 H Urine RBC 10-25 SEEN Urine WBC 0-5 SEEN Ur Squamous Epith Cells 0-5 SEEN Urine Bacteria 1+ Urine Mucus 0 SEEN Radiography Diagnostic Testing: Clinical Impression(s) from Imaging Studies Abdomen/Pelvis CT 04/04/25 14:19 IMPRESSION: 1. Left nephrolithiasis with mild hydronephrosis. No obstructing calculus. 2. Small esophageal hiatal hernia. 3. Hepatomegaly with fatty infiltration. 4. Umbilical hernia containing fat. Reading Location: [facility] CT scan of the abdomen and pelvis was obtained. There is left nephrolithiasis and mild hydronephrosis. There is no obstruction. There is an umbilical hernia containing fat. There is a small hiatal hernia. There is no other acute abnormality noted. This was interpreted by the radiologist and was also indep endently reviewed by myself. Treatment and Re-Evaluation :: Care of the patient was turned over to me pending urinalysis results. Urinalysis was reviewed. Occult blood was 250 with 10-25 red blood cells. Leukocyte esterase was 100 but there are 0-5 white blood cells. There are 05 epithelial cells. There is 1+ bacteria. Urine culture was ordered. Patient was advised of her findings. Patient was given prescription for Zofran and a short course of [place]. Patient was instructed to start with liquids and advance her diet as tolerated. Patient was instructed to follow-up with her primary care physician in 5 to 7 days. Patient understood and was agreeable with the plan. All questions were answered. Discharge Plan Triage Chief Complaint: Abd Pain ED Provider: Александр Koenig Dx/Rx/DC Orders Clinical Impression: Left flank pain, Calculus of left kidney Instructions: ED Flank Pain, Uncertain Cause, ED Kidney Stone with Pain Prescriptions: New hydrocodone-acetaminophen 5-325 mg tablet 1 tab PO Q6H PRN PRN (Reason: Pain) 3 Days Qty: 10 0RF ondansetron 4 mg tablet,disintegrating 4 mg PO Q8H PRN PRN (Reason: Nausea) Qty: 10 0RF No Action Mirena 20 mcg/24 hours (5 yrs) 52 mg intrauterine device 1 device intrauterine ONCE Rx Instructions: as a single dose sodium chloride 3 % mist 1 spray intranasal BID omeprazole 40 mg capsule,delayed release(DR/EC) 40 mg PO DAILY PRN (Reason: heartburn) Rx Instructions: Take 30 minutes before breakfast bupropion HCl 100 mg tablet 100 mg PO BID 90 Days Qty: 180 1RF amlodipine 5 mg tablet 5 mg PO DAILY Qty: 90 3RF levocetirizine [Xyzal] 5 mg tablet 5 mg PO QPM PRN (Reason: allergy symptoms) Qty: 90 3RF nitrofurantoin monohyd/m-cryst [Macrobid] 100 mg capsule 100 mg PO Q12H 5 Days Qty: 10 0RF Rx Instructions: must administer with a meal/food triamcinolone acetonide [Nasacort] 55 mcg aerosol,spray 1 spray intranasal DAILY Rx Instructions: administer into each nostril albuterol sulfate 90 mcg/actuation HFA aerosol inhaler 2 puff inhalation Q6H PRN (Reason: shortness of breath or wheezing) Qty: 8.5 2RF Primary Care Provider: Yoon Blevins Referrals: Yoon Blevins MD [Primary Care Provider] - 5-7 Days Print Language: Turkish Disposition Disposition: Home, Self Care Discharge Date/Time: 04/04/25 19:45
[2025-04-04 14:26] LABS: Absolute Lymphocyte Count 6.25 X10^3/uL (0.83-4.51); Absolute Neutrophil Count 9.2 X10^3/uL (2.0-7.7); Basophil# 0.11 X10^3/uL; Basophil% 0.7 % (0-1); Eosinophil# 0.12 X10^3/uL; Eosinophils% 0.7 % (0-5); Hematocrit 42.9 % (37-47); Hemoglobin 14.2 g/dL (12.0-15.0); Lymphocyte # 6.25 X10^3/ul (0.83-4.51); Lymphocyte % 37.1 % (19-41); Mean Corp Hgb Conc 33.1 g/dL (32-36); Mean Corpuscular Hgb 28.3 pg (27.0-32.0); Mean Corpuscular Volume 85.6 fL (81-99); Mean Platelet Vol. 10.2 fl (6.2-12.0); Monocyte# 1.09 X10^3/uL; Monocyte% 6.5 % (0-10); NRBC Flagged by Analyzer 0 % (0-5); Neutrophil # 9.18 X10^3/uL (2.7-7.7); Neutrophil % 54.5 % (47-70); POSITIVE DIFFERENTIAL YES; POSITIVE MORPHOLOGY YES; Platelet Count 475 K/mm3 (150-450); RBC Distribution Width CV 13.4 % (11.6-14.6); RBC Distribution Width SD 41.7 fl (35.1-43.9); Red Blood Count 5.01 M/mm3 (4.2-5.4); White Blood Count 16.8 K/mm3 (4.4-11.0)
[2025-04-04] MEDS: Ondansetron 4 MG/2 ML Vial IV (14:27)
[2025-04-04] MEDS: Morphine 4 MG/ML Syringe IV (14:27)
[2025-04-04] MEDS: 0.9% Normal Saline (1000mL) 1,000 ML 999 ML IV (14:27)
[2025-04-04] MEDS: Ketorolac 15 MG/ML Vial IV (14:27)
[2025-04-04 14:28] LABS: Differential Indicated SCAN CRITERIA MET
[2025-04-04 14:41] LABS: ALB/GLOB Ratio 1.5 RATIO (0.9-2.4); AST(SGOT) 30 U/L (<=31); Alanine Aminotransfer ALT/SGPT 32 U/L (<=34); Albumin, Serum 4.4 g/dL (3.5-5.0); Alkaline Phosphatase 100 U/L (35-104); Anion Gap 18 (5-15); BUN 11 mg/dL (4-19); BUN/Creat Ratio 11.8 RATIO (10-20); Calcium,Total 9.4 mg/dL (7.6-11.0); Carbon Dioxide 18.3 mmol/L (21.0-32.0); Chloride 102 mmol/L (98-108); Creatinine, Serum 0.91 mg/dL (0.70-1.20); EST Glomerular Filtration Rate 81 (>60); Glucose 156 mg/dL (70-99); Lipase 19 U/L (13-75); Potassium 2.9 mmol/L (3.3-5.1); Protein, Total 7.4 g/dL (5.9-8.4); Sodium Level 138 mmol/L (133-145); Total Bilirubin 0.28 mg/dL (0.00-1.30)
[2025-04-04] MEDS: KCL 20MEQ in 0.9% NS 20 MEQ/1,000 ML IV.SOLN. 250 MEQ IV (15:24)
[2025-04-04 15:27] LABS: Polychromasia 1+
[2025-04-04 15:28] LABS: Atypical Lymphocyte 3+ %; Pathologist Review May foll; Platelet Estimate SLT INC (ADEQ)
[2025-04-04 15:47] LABS: Magnesium 1.8 mg/dL (1.5-2.2)
[2025-04-04 16:02] VITALS: BP 182/119; PULSE 82; RESP 18; O2SAT 97
[2025-04-04 16:26] LABS: Mucous, Urine 0 SEEN /hpf (<or=2+)
[2025-04-04 16:31] LABS: Color, Urine Yellow (Yellow); Glucose, Dipstick 100 mg/dl (Normal); Ketone-Dipstick 50 mg/dl (Negative); Leukocyte Esterase-Dipstick 100 /ul (Negative); Nitrite-Dipstick Negative (Negative); Occult Blood-Urine 250 /ul (Negative); Protein-Dipstick 30 mg/dl (Negative); Urine Bilirubin Dipstick Negative (Negative); Urine Clarity Clear (Clear); Urine Urobilinogen Normal (Normal)
[2025-04-04 16:39] LABS: Red Blood Cells-Urine 10-25 SEEN /hpf (0-5); White Blood Cells 0-5 SEEN /hpf (0-5)
[2025-04-04 16:40] LABS: Bacteria 1+ /hpf (None Seen); Squamous Epithelial Cells - UA 0-5 SEEN /hpf (5-10)
[2025-04-04 18:00] VITALS: BP 126/76; PULSE 88; RESP 15; O2SAT 96
[2025-04-04 19:38] VITALS: BP 113/80; PULSE 91; RESP 20; TEMP 36.8; O2SAT 98
== END 2025-04-04 19:45 | disposition home or self-care (01) ==
PROVIDERS: Emergency Provider Emergency Medicine; PCP Internal Medicine; Visit Provider Emergency Medicine
DX: N13.2 Hydronephrosis with renal and ureteral calculous obstruction (principal); F31.9 Bipolar disorder, unspecified; Z87.891 Personal history of nicotine dependence; Z98.51 Tubal ligation status; K21.9 Gastro-esophageal reflux disease without esophagitis; Z87.440 Personal history of urinary (tract) infections
CPT/HCPCS: 74176; 80053; 81001; 83690; 83735; 85025; 96361; 96374; 96375; 99283; J2405

== ENCOUNTER → 2025-04-07 | Outpatient (CLI) | payer BC, SELFPAY | END | disposition home or self-care (01) | LOC: LABSPEC 15:13 | PROVIDERS: PCP Internal Medicine; Visit Provider Physician Assistant | DX: R82.90 Unspecified abnormal findings in urine (principal) | CPT/HCPCS: 87086; 87088 ==

== ENCOUNTER → 2025-04-22 | Outpatient (CLI) | payer BC, SELFPAY ==
[2025-04-22 11:11] LABS: Bacteria 0 SEEN /hpf (None Seen); Mucous, Urine 0 SEEN /hpf (<or=2+)
[2025-04-22 12:25] LABS: Color, Urine Yellow (Yellow); Glucose, Dipstick Normal (Normal); Ketone-Dipstick 5 mg/dl (Negative); Leukocyte Esterase-Dipstick 500 /ul (Negative); Nitrite-Dipstick Negative (Negative); Occult Blood-Urine 10 /ul (Negative); Protein-Dipstick 30 mg/dl (Negative); Urine Bilirubin Dipstick Negative (Negative); Urine Clarity Clear (Clear); Urine Urobilinogen Normal (Normal)
--- OUTSIDE RECORDS SUMMARY | 2025-04-22 20:31 | XMS RPT_ITS | CCD ---
Author Organization [facility] CliniSywv Care Team Providers Care Playground Attendant Name Role Phone Dr. Yoon Blevins Primary Care Provider [phone] Dr. Yoon Blevins Attending Provider [phone] Dr. Yoon Blevins Referring Provider [phone] Gen SANTANA, Dr. Nettles Primary Care Provider Gen SANTANA, Dr. Nettles Attending Provider [phone] Gen SANTANA, Dr. Nettles Referring Provider [phone] Александр Koenig MD Emergency Provider Jorge Jimenez Attending Provider [phone] Александр Koenig MD Attending Provider [phone] Oleghe, Efewongbe Primary Care Unavailable Oleghe, Efewongbe Referring Unavailable Jorge Tidwell Attending Unavailable Oleghe, Efewongbe Primary Care Unavailable Oleghe, Efewongbe Attending Unavailable Oleghe, Efewongbe Referring Unavailable Oleghe, Efewongbe Attending Unavailable Oleghe, Efewongbe Primary Care Unavailable Oleghe, Efewongbe Referring Unavailable Oleghe, Efewongbe Primary Care Unavailable Oleghe, Efewongbe Attending Unavailable Oleghe, Efewongbe Referring Unavailable Oleghe, Efewongbe Primary Care Unavailable Oleghe, Efewongbe Attending Unavailable Oleghe, Efewongbe Referring Unavailable Oleghe, Efewongbe Primary Care Unavailable Oleghe, Efewongbe Attending Unavailable Oleghe, Efewongbe Referring Unavailable Oleghe, Efewongbe Primary Care Unavailable Александр Koenig Attending Unavailable Oleghe, Efewongbe Primary Care Unavailable Oleghe, Efewongbe Attending Unavailable Yoon Blevins Referring Unavailable Yoon Blevins Primary Care Unavailable Jorge Tidwell Attending Unavailable Yoon Blevins Primary Care Unavailable Yoon Blevins Attending Unavailable Yoon Blevins Referring Unavailable Allergies Allergy Classification Reported Allergen(s) Allergy Type Date of Onset Reaction(s) Facility (8 sources) Hazelnut Allergy to substance 3 Food Allergy [facility] (5 sources) Penicillins Allergy to substance 4 Rash [facility] (5 sources) Grass pollen; Translations: [grass pollen] Allergy to substance 5 [facility] (5 sources) cat dander; Translations: [cat dander] Allergy to substance 5 [facility] (1 source) Hazelnut Drug allergy (disorder) 5 [facility] Repository (1 source) Penicillins Drug allergy (disorder) 5 [facility] Medications Current Medications Medication Drug Class(es) Dates Sig (Normalized) Sig (Original) acetaminophen 325 mg / HYDROcodone bitartrate 5 mg oral tablet (3 sources) Opioid Agonist Start: 04-04-2025 take 1 tablet by mouth every six hours as needed for pain Hydrocodone-Aceta minophen 5-325 mg tablet Active 1 {tbl} PO EVERY 6 HOURS NEEDED as needed for Pain 10 3 April 04, 2025 [id number] 200 actuat albuterol 0.09 mg/actuat metered dose inhaler (15 sources) beta2-Adrenergic Agonist Start: 12-08-2022 End: 03-07-2023 Albuterol Sulfate 90 mcg/actuation HFA aerosol inhaler Active 2 NMA INHALATION EVERY 6 HOURS as needed for shortness of breath or wheezing 8.March 07, 2023 4:36pm Start: 12-08-2022 End: 03-07-2023 take 1 puff(s) by inhalation every six hours Albuterol Sulfate Active 2 PUFF INHALATION EVERY 6 HOURS 8.March 07, 2023 4:36pm levonorgestrel 0.573982 mg/hr intrauterine system (8 sources) Progestin, Progestin-containing Intrauterine Device Start: 09-01-2020 Levonorgestrel (Mirena) 20 mcg/24 hours (5 yrs) 52 mg intrauterine device Active 1 NMA INTRA-UTER ONCE September 01, 2020 12:00am as a single dose Start: 09-01-2020 levonorgestrel 20 mcg/24 hours (5 yrs) 52 mg intrauterine device Active 1 DEVICE INTRA-UTER ONCE September 01, 2020 12:00am as a single dose ondansetron 4 mg disintegrating oral tablet (11 sources) Serotonin-3 Receptor Antagonist Start: 04-04-2025 take 1 tablet by mouth every eight hours as needed for nausea Ondansetron 4 mg tablet,disintegrating Active 4 mg PO EVERY 8 HOURS NEEDED as needed for Nausea April 04, 2025 12:00am Start: 01-18-2022 End: 06-01-2023 take 1 tablet by mouth every eight hours as needed for nausea and vomiting Ondansetron 4 mg tablet,disintegrating Discontinued 4 mg PO Q8H as needed for nausea and vomiting January 18, 2022 1:00am June 01, 2023 2:38pm sodium chloride 0.513 meq/ml nasal spray (6 sources) Start: 09-07-2023 Sodium Chlorid e 3 % mist Active 1 NMA INTRANASAL TWICE A DAY September 07, 2023 12:00am Start: 09-07-2023 Sodium Chlorid e Active SPRAY INTRANASAL TWICE A DAY September 07, 2023 12:00am triamcinolone acetonide 0.055 mg/actuat metered dose nasal spray (13 sources) Corticosteroid Start: 04-04-2025 Triamcinolone Acetonide (Nasacort) 55 mcg aerosol,spray Active 1 NMA INTRANASAL DAILY April 04, 2025 12:00am administer into each nostril Start: 09-07-2023 take 2 spray(s) nasa l route once daily Triamcinolone Acetonide Active MCG INTRANASAL DAILY September 07, 2023 12:00am 2 SPRAYS/NOSTRIL DAILY Start: 09-07-2023 take 2 spray(s) nasa l route once daily Triamcinolone Acetonide Active MCG INTRANASAL DAILY September 06, 2023 11:00pm 2 SPRAYS/NOSTRIL DAILY Start: 06-05-2022 End: 06-01-2023 Triamcinolone Acetonide 0.1 % cream Discontinued 1 NMA TOPICAL TWICE A DAY as needed for rash, itching June 05, 2022 12:00am June 01, 2023 2:38pm Completed/Discontinued Medications Medication Drug Class(es) Dates Sig (Normalized) Sig (Original) amLODIPine 5 mg oral tablet (20 sources) Dihydropyridine Calcium Channel Dylan Start: 10-01-2020 End: 02-20-2025 take 1 tablet by mouth once daily Amlodipine 5 mg tablet Discontinued 5 mg PO DAILY March 07, 2023 4:36pm September 07, 2023 5:01pm amoxicillin 875 mg / clavulanate 125 mg oral tablet (16 sources) Penicillin-class Antibacterial Start: 08-02-2021 End: 09-05-2021 Amoxicillin-Pot Clavulanate (Augmentin) 875-125 mg tablet Discontinued 1 {tbl} PO TWICE A DAY August 02, 2021 12:00am September 05, 2021 1:34pm Start: 10-01-2020 End: 10-22-2020 Amoxicillin-Pot Clavulanate 875-125 mg tablet Discontinued 1 {tbl} PO TWICE A DAY 42 October 01, 2020 1:00am October 21, 2020 1:00am October 22, 2020 1:03am Start: 10-01-2020 End: 10-22-2020 take 1 tablet by mouth twice daily Amoxicillin-Pot Clavulanate Discontinued 1 TABLET PO TWICE A DAY 42 October 01, 2020 1:00am October 22, 2020 1:03am buPROPion hydrochloride 100 mg oral tablet (16 sources) Aminoketone Start: 03-21-2024 End: 02-20-2025 take 1 tablet by mouth twice daily Bupropion Hcl 100 mg tablet Discontinued 100 mg PO TWICE A DAY 180 June 27, 2024 1:14pm February 20, 2025 3:18pm cephalexin 500 mg oral capsule (8 sources) Cephalosporin Antibacterial Start: 09-06-2022 End: 12-08-2022 take 1 capsule by mouth three times daily Cephalexin 500 mg capsule Discontinued 500 mg PO THREE TIMES A DAY September 06, 2022 12:00am December 08, 2022 10:05am doxycycline hyclate 100 mg oral tablet (8 sources) Tetracycline-class Drug Start: 11-03-2020 End: 11-17-2020 take 1 tablet by mouth twice daily Doxycycline Hyclate 100 mg tablet Discontinued 100 mg PO TWICE A DAY November 03, 2020 1:00am November 16, 2020 1:00am November 17, 2020 1:02am fluconazole 150 mg oral tablet (16 sources) Azole Antifungal Start: 08-02-2021 End: 09-05-2021 Fluconazole (Diflucan) 150 mg tablet Discontinued 150 mg PO Every 3 Days August 02, 2021 12:00am September 05, 2021 1:35pm may repeat second dose 72 hrs after first dose if symptoms persist Start: 10-01-2020 End: 11-03-2020 Fluconazole 150 mg tablet Di scontinued 150 mg PO Every 3 Days October 01, 2020 1:00am November 03, 2020 3:47pm may repeat second dose 72 hrs after first dose if symptoms persist ketoconazole 20 mg/ml medicated shampoo (8 sources) Azole Antifungal Start: 01-31-2021 End: 06-01-2023 Ketoconazole 2 % shampoo Discontinued 1 NMA TOPICAL TWICE A WEEK January 31, 2021 12:00am June 01, 2023 2:36pm levocetirizine dihydrochloride 5 mg oral tablet (20 sources) Histamine-1 Receptor Antagonist Start: 11-03-2020 End: 02-20-2025 take 1 tablet by mouth once daily in the evening as needed Levocetirizine (Xyzal) 5 mg tablet Discontinued 5 mg PO EVERY EVENING as needed for allergy symptoms March 07, 2023 4:37pm September 07, 2023 5:01pm loratadine 10 mg oral tablet (8 sources) Start: 09-01-2020 End: 11-03-2020 take 1 tablet by mouth once daily Loratadine (Claritin) 10 mg tablet Discontinued 10 mg PO DAILY September 01, 2020 12:00am November 03, 2020 3:48pm 24 hr nicotine 0.875 mg/hr transdermal system (12 sources) Cholinergic Nicotinic Agonist Start: 03-21-2024 End: 04-18-2024 apply 1 dose transdermal route every twenty-four hours Nicotine 21 mg/24 hr patch 24 hour Discontinued 1 NMA TD DAILY March 21, 2024 12:00am April 18, 2024 12:52pm Start: 09-05-2021 End: 06-05-2022 apply 1 dose transdermal route every twenty-four hours Nicotine 21 mg/24 hr patch 24 hour Discontinued 1 NMA TD DAILY September 05, 2021 12:00am June 05, 2022 8:38am Start: 09-05-2021 End: 06-05-2022 apply 1 dose transdermal route once daily Nicotine Discontinued 1 PATCH TD DAILY September 05, 2021 12:00am June 05, 2022 8:38am nitrofurantoin, macrocrystals 25 mg / nitrofurantoin, monohydrate 75 mg oral capsule (1 source) Nitrofuran Antibacterial Start: 04-07-2025 End: 04-12-2025 take 1 capsule by mouth every twelve hours at mealtime Nitrofurantoin Monohyd/M-Cryst (Macrobid) 100 mg capsule Discontinued 100 mg PO Q12H 10 5 April 07, 2025 12:00am April 11, 2025 12:00am April 12, 2025 12:07am must administer with a meal/food omeprazole 40 mg delayed release oral capsule (20 sources) Proton Pump Inhibitor Start: 01-18-2022 End: 02-20-2025 take 1 capsule by mouth once daily 30 minutes before breakfast Omeprazole 40 mg capsule,delayed release(DR/EC) Discontinued 40 mg PO DAILY December 08, 2022 1:12pm February 20, 2025 2:31pm Take 30 minutes before breakfast Triamcinolone Acetonide 55 mcg/actuation aerosol (4 sources) Start: 09-07-2023 End: 04-04-2025 take 2 spray(s) nasal route once daily Triamcinolone Acetonide 55 mcg/actuation aerosol Discontinued ug INTRANASAL DAILY September 07, 2023 12:00am April 04, 2025 3:51pm 2 SPRAYS/NOSTRIL DAILY Start: 09-07-2023 take 2 spray(s) nasa l route once daily Triamcinolone Acetonide 55 mcg/actuation aerosol Active ug INTRANASAL DAILY September 07, 2023 12:00am 2 SPRAYS/NOSTRIL DAILY varenicline (20 sources) Partial Cholinergic Nicotinic Agonist Start: 06-05-2022 End: 09-06-2022 Varenicline Discontinued 0 PO per package directions 53 June 05, 2022 12:00am September 06, 2022 9:16am PO PER PKG DIR Start: 06-05-2022 End: 09-06-2022 Varenicline Discontinued 0 P O per package directions 53 June 04, 2022 11:00pm September 06, 2022 8:16am PO PER PKG DIR Start: 05-02-2021 End: 09-05-2021 take 1 tablet by mouth twice daily, then take 1 tablet by mouth once Varenicline Tartrate (Chantix Continuing Month Box) 1 mg tablet Discontinued 1 mg PO TWICE A DAY 56 May 02, 2021 12:00am September 05, 2021 1:35pm Start: 05-02-2021 End: 09-05-2021 take 1 tablet by mouth once Varenicline Tartrate (Cutler tix Starting Month Box) 0.5 mg (11)- 1 mg (42) tablets,dose pack Discontinued 0 PO per package directions 53 May 02, 2021 12:00am September 05, 2021 1:48pm PO PER PKG DIR Varenicline Tartrate 0.5 mg (11)- 1 mg (42) tablets,dose pack (4 sources) Start: 06-05-2022 End: 09-06-2022 take 1 tablet by mouth once Varenicline Tartrate 0.5 mg (11)- 1 mg (42) tablets,dose pack Discontinued 0 PO per package directions 53 June 05, 2022 12:00am September 06, 2022 9:16am PO PER PKG DIR Problems Active Problems Problem Classification Problem Date Documented Date Episodic/Chronic Abdominal pain (4 sources) Left flank pain; Translations: [Unspecified abdominal pain] Onset: 04-04-2025 04-04-2025 Episodic Acute bronchitis (5 sources) Respiratory syncytial virus bronchitis; Translations: [Acute bronchitis due to respiratory syncytial virus] 02-16-2024 Episodic Calculus of urinary tract (3 sources) Kidney stone; Translations: [Calculus of kidney] 04-04-2025 Episodic Esophageal disorders (19 sources) Gastroesophageal reflux disease; Translations: [Gastro-esophageal reflux disease without esophagitis] Onset: 02-20-2025 02-28-2022 Chronic Essential hypertension (20 sources) Hypertensive disorder; Translations: [Essential (primary) hypertension] Onset: 02-25-2025 02-28-2022 Chronic Genitourinary symptoms and ill-defined conditions (11 sources) Scalding pain on urination ; Translations: [Dysuria] Onset: 04-07-2025 12-08-2022 Episodic Malaise and fatigue (4 sources) Post-infectious disorder; Translations: [Post viral syndrome] 03-21-2024 Episodic Mood disorders (20 sources) Seasonal affective disorder; Translations: [Other recurrent depressive disorders] 12-14-2023 Chronic Nausea and vomiting (8 sources) Nausea; Translations: [Nausea] 01-18-2022 Episodic Other nutritional; endocrine; and metabolic disorders (12 sources) Obese class I; Translations: [Obesity, unspecified] 01-18-2022 Chronic Other upper respiratory disease (8 sources) Seasonal allergy; Translations: [Other seasonal allergic rhinitis] 12-08-2022 Chronic Other upper respiratory disease (2 sources) Other seasonal allergic rhinitis; Translations: [Allergic rhinitis, cause unspecified] 12-08-2022 Chronic Other upper respiratory infections (14 sources) Chronic sinusitis; Translations: [Chronic sinusitis, unspecified] 06-01-2023 Chronic Other upper respiratory infections (8 sources) Acute sinusitis; Translations: [Acute sinusitis, unspecified] 08-02-2021 Episodic Residual codes; unclassified (8 sources) Insomnia; Translations: [Insomnia, unspecified] 02-28-2022 Episodic Residual codes; unclassified (8 sources) Tobacco user; Translations: [Tobacco use] 05-02-2021 Episodic Residual codes; unclassified (1 source) Tobacco use; Translations: [Tobacco use disorder] 06-01-2023 Episodic Substance-related disorders (4 sources) Tobacco dependence in remission; Translations: [Nicotine dependence, unspecified, in remission] 06-27-2024 Chronic Urinary tract infections (9 sources) Urinary tract infectious disease; Translations: [Urinary tract infection, site not specified] 09-06-2022 Episodic Past or Other Problems Problem Classification Problem Date Documented Da te Episodic/Chronic Other screening for suspected conditions (not mental disorders or infectious disease) (9 sources) Patient encounter status; Translations: [Encounter for screening for other suspected endocrine disorder] Onset: 09-01-2024 12-14-2023 Episodic Results Test Name Value Interpretation Reference Range Facility Urine Cultureon 04-09-2025 [facility] Mixed Gram Positive Organisms [place] Count 50,000-80,000 [facility] Mixed contaminants. Submit a new specimen if indicated. Normal [facility] Comment on above: Performed By: #### M [id number] #### [facility] [address] [place], [address] Laboratory - Chemistry and C hemistry - challengeOrdered By: Jorge Tidwell on 04-07-2025 Bilirubin Ql (U) Negative [facility] Glucose Ql (U) Negative [facility] Ketones Ql (U) Negative [facility] pH (U) 6.0 [pH] [facility] Specific gravity (U) [Rel density] 1.030 [facility] Urobilinogen (U) [Mass/Vol] Negative [facility] Laboratory - Hematology and Cell countsOrdered By: Jorge Tidwell on 04-07-2025 Hemoglobin Ql (U) Trace [facility] Laboratory - Specimen inform ationOrdered By: Jorge Tidwell on 04-07-2025 Clarity (U) Cloudy [facility] Color (U) Dk Yellow [facility] Laboratory - UrinalysisOrder ed By: Jorge Tidwell on 04-07-2025 Nitrite Ql (U) Negative [facility] Protein Ql (U) 1+ [facility] No Panel InformationOrdered By: Jorge Tidwell on 04-07-2025 Urine Leukocytes Positive [facility] Urine Non-Hemolyzed Blood Negative [facility] Urgent Care Visit Reporton 0 04-07-2025 Urgent Care Visit Report [facility] [address], [address] [place] [address] OFFICE VISIT Date of Service: 04/07/25 MR#: [id number] Acct: [id number] Name: GUILLERMINA SERNA VIDES Rep #: [id number] : 1980 Provider: ADRIANA Aguero Age/Sex: 44/F Location[place] [facility] Status: Signed Intake Vital Signs 04/04/25 14:03 04/07/25 14:43 Height 5 ft 6 in 5 ft 6 in Weight: 231 lb 2 oz BMI 37.3 BP 154/82 H Blood Pressure Location Lt brachial Position Sitting Respiration 17 Pulse 108 H Pulse Source NIBP Temp 98.3 F Temp Source Oral Pulse Oximetry (%) 98 Oxygen Delivery Method room air Intake Visit Reasons: CONCERN FOR UTI Chief Complaint: dysuria, left flank pain, blood in urine [employer] Worker Required: No Is patient in pain?: Yes Allergies hazelnut Allergy (Intermediate, Verified 04/07/25 14:44) Food Allergy cat dander Allergy (Mild, Verified 04/07/25 14:44) Rash grass pollen Allergy (Mild, Verified 04/07/25 14:44) Rash Penicillins Allergy (Mild, Verified 04/07/25 14:44) Rash Is last menstrual period known: No Post menopausal: Yes Patient : No Have you fallen in the past year?: No Nurse's Note: dysuria, left flank pain, blood in urine x 2 days. recent ED visit--suspected passed kidney stone. concern for UTI PFSH Medical History Health care maintenance Tobacco abuse, in remission Post viral syndrome Seasonal affective disorder Screening for thyroid disorder Chronic sinusitis Burning with urination UTI (urinary tract infection) Insomnia Obesity (BMI 30.0-34.9) Nausea GERD (gastroesophageal reflux disease) Acute sinusitis Tobacco abuse Depression Bipolar 1 disorder Migraines Rheumatoid arthritis Seasonal allergies Surgical History History of rhinoplasty History of tubal ligation Family History Father Colon cancer Mother Osteoporosis Cancer brain cx Diabetes Other Arthritis Depression Social History household members: spouse number of children: 3 current occupational status: unemployed history of recent travel: No sexually active: No Smoking Status: Former smoker Tobacco: How many years used: 24 alcohol intake: never substance use type: does not use what type of physical activity do you participate in: none seatbelt use: always do you feel safe at home: Yes additional social history: - [facility] HPI Chief Complaint: dysuria, left flank pain, blood in urine Details: GUILLERMINA SERNA, is a 44 F who presents to the office today for initial evaluation at the [facility] for approximately 3-4 day history of dysuria and urinary frequency with suprapubic pressure and previous L CVA tender (no longer though). No complaints of fever, chills, sweats, lightheadedness/dizz iness, nausea/vomiting, or chest pain/shortness of breath/dyspnea on exertion/back pain. No changes in color/ character of urine or stool; no urethral/ vaginal discharge. No uxjv-[id number] products taken to assist. No other associated symptoms and no alleviating/aggravat ing factors. ROS Const Constitutional: No other (As above) Exam Const General: cooperative, healthy appearing and no acute distress Orientation: alert, awake and oriented x3 Chest Chest palpation inspection: normal inspection of the chest Resp Effort Inspection: normal respiratory effort and able to speak in complete sentences Cardio Rate: regular rate Pulses: radial pulses present GI Inspection: normal to inspection Palpation: soft and tender suprapubic (Patient describes upon self-palpation) General: No CVA tenderness Skin General: no rashes or lesions noted Neuro General: patient alert, patient awake and patient oriented x3 Cognition: normal cognition Speech: speech normal Psych Appearance: grossly normal Mental Status: mental status grossly normal Mood: congruent mood Affect: normal affect Speech and Movement: speech and movement normal Attitude: cooperative Diagnoses Urinary tract infection N39.0 Assessment and Plan Assessment and Plan (1) Urinary tract infection: Status: Acute Plan: See POC results; urine sent to lab for C/S. Macrobid as prescribed today. Supportive measures as instructed today. Follow-up with PCP in 3 to 5 days should symptoms not improve, sooner should symptoms only worsen or any other concerns develop. Patient states acknowledging understanding all the above. Results POC Urinalysis Dip (Clinic) Office Urine Color Dk Yellow Last Edit by Massiel Pratt on 04/07/25 14:50 Office Urine Clarity Cloudy Last Edit by Massiel Ball (more content not included)... Normal [facility] Urine cultureOrdered By: Live Tidwell on 04-07-2025 Bacteria identified Cx Nom (U) Positive Abnormal [facility] Abdomen/Pelvis without Conto n 04-04-2025 Abdomen/Pelvis without Cont [facility] Imaging Services [address] [place], [place] [id number] Abdomen/Pelvis without Cont MR#: [id number] Acct: [id number] Name: GUILLERMINA SERNA Rep #: [id number] : 1980 F 44 From: Raciel Tristan MD PCP: Dr. Yoon Blevins MD Status: REG ER Study: Abdomen/Pelvis without Cont Date of Exam: 03/19 06/12 Exam# [id number] Ordering Dr: Александр Koenig MD EXAM: CT Abdomen and Pelvis Without Intravenous Contrast CLINICAL INDICATION: PAIN TECHNIQUE: Axial computed tomography images of the abdomen and pelvis without intravenous contrast. This CT exam was performed using one or more of the following dose reduction techniques: automated exposure control, adjustment of the mA and/or kV according to patient size, and/or use of iterative reconstruction technique. COMPARISON: No relevant prior studies available. FINDINGS: LUNG BASES: Unremarkable. No mass. No consolidation. MEDIASTINUM: Small esophageal hiatal hernia. ABDOMEN: LIVER: Hepatomegaly with fatty infiltration. GALLBLADDER AND BILE DUCTS: Unremarkable. No calcified stones. No ductal dilation. PANCREAS: Unremarkable. No ductal dilation. SPLEEN: Unremarkable. No splenomegaly. ADRENALS: Unremarkable. No mass. KIDNEYS AND URETERS: Left nephrolithiasis with mild hydronephrosis. No obstructing calculus. STOMACH AND BOWEL: Unremarkable. No obstruction. No mucosal thickening. PELVIS: APPENDIX: No findings to suggest acute appendicitis. BLADDER: Unremarkable. No stones. REPRODUCTIVE: Unremarkable as visualized. ABDOMEN and PELVIS: INTRAPERITONEAL SPACE: Unremarkable. No free air. No significant fluid collection. BONES/JOINTS: No acute fracture. No dislocation. SOFT TISSUES: Umbilical hernia containing fat. VASCULATURE: Unremarkable. No abdominal aortic aneurysm. LYMPH NODES: Unremarkable. No enlarged lymph nodes. CT/Abdomen/Pelvis without Cont IMPRESSION: 1. Left nephrolithiasis with mild hydronephrosis. No obstructing calculus. 2. Small esophageal hiatal hernia. 3. Hepatomegaly with fatty infiltration. 4. Umbilical hernia containing fat. Reading Location: [facility] CC: Dr. Александр Koenig MD; Dr. Yoon Blevins MD Bill Recapitulation Clerk: Signed [facility] Absolute lymphocyte countOrd ered By: Александр Koenig on 04-04-2025 Lymphocytes Auto (Unsp spec) [#/Vol] 6.25 10*3/uL High 0.83-4.51 [facility] Absolute neutrophil countOrd ered By: Александр Koenig on 04-04-2025 Neutrophils (Bld) [#/Vol] 9.2 10*3/uL High 2.0-7.7 [facility] Anion gap in Serum or Plasma Ordered By: Александр Koenig on 04-04-2025 Anion gap [Moles/Vol] 18 mmol/L High 5-15 [facility] Automated lymphocyte count a s percentage of total leukocytesOrdered By: Александр Koenig on 04-04-2025 Lymphocytes/100 WBC Auto (Unsp spec) 37.1 % 19-41 [facility] BUN/creatinine ratioOrdered By: Александр Koenig on 04-04-2025 Urea nitrogen/Creatinine [Mass ratio] 11.8 mg/mg 10-20 [facility] Basophil percentageOrdered B y: Александр Koenig on 04-04-2025 Basophils/100 WBC (Bld) 0.7 % 0-1 [facility] Bilirubin Test strip Ql (U)O rdered By: Александр Koenig on 04-04-2025 Bilirubin Ql (U) Negative Negative [facility] Bilirubin, totalOrdered By: Александр Koenig on 04-04-2025 Bilirubin [Mass/Vol] 0.28 mg/dL 0.00-1.30 [facility] Blood polychromasia detectio n by light microscopyOrdered By: Александр Koenig on 04-04-2025 Polychromasia LM Ql (Bld) 1+ [facility] CBC W/Diff, Automatedon 03-19 PATH REV May foll Normal [facility] Comment on above: Performed By: #### L 500.4050, L501.2450, L100.0100 #### [facility] Laboratory [facility] [place], [address] Carbon dioxide, total [Moles /volume] in Central venous bloodOrdered By: Александр Koenig on 04-04-2025 CO2 [Moles/Vol] 18.3 mmol/L Low 21.0-32.0 [facility] Chloride assayOrdered By: Eriberto Koenig on 04-04-2025 Chloride [Moles/Vol] 102 mmol/L 98-108 [facility] Comprehensive Metabolic Prof ilon 04-04-2025 Albumin [Mass/Vol] 4.4 g/dL Normal 3.5-5.0 [facility] Comment on above: Performed By: #### L 500.4050, L501.2450, L100.0100 #### [facility] Laboratory [address] [place], [address] Albumin/Globulin [Mass ratio] 1.5 {ratio} Normal 0.9-2.4 [facility] Comment on above: Performed By: #### L 500.4050, L501.2450, L100.0100 #### [facility] Laboratory [address] [place], [address] ALK PHOS 100 U/L Normal 35-104 [facility] Comment on above: Performed By: #### L 500.4050, L501.2450, L100.0100 #### [facility] Laboratory [address] [place], [address] ALT [Catalytic activity/Vol] 32 U/L Normal <=34 [facility] Comment on above: Performed By: #### L 500.4050, L501.2450, L100.0100 #### [facility] Laboratory [address] [place], [address] AST [Catalytic activity/Vol] 30 U/L Normal <=31 [facility] Comment on above: Performed By: #### L 500.4050, L501.2450, L100.0100 #### [facility] Laboratory [address] [place], [address] Bilirubin [Mass/Vol] 0.28 mg/dL Normal 0.00-1.30 [facility] Comment on above: Performed By: #### L 500.4050, L501.2450, L100.0100 #### [facility] Laboratory [address] [place], [address] BUN/CRE 11.8 RATIO Normal 10-20 [facility] Comment on above: Performed By: #### L 500.4050, L501.2450, L100.0100 #### [facility] Laboratory [address] [place], [address] Calcium [Mass/Vol] 9.4 mg/dL Normal 7.6-11.0 [facility] Comment on above: Performed By: #### L 500.4050, L501.2450, L100.0100 #### [facility] Laboratory [address] [place], [address] Chloride [Moles/Vol] 102 mmol/L Normal 98-108 [facility] Comment on above: Performed By: #### L 500.4050, L501.2450, L100.0100 #### [facility] Laboratory [address] [place], [address] CO2 [Moles/Vol] 18.3 mmol/L Low 21.0-32.0 [facility] Comment on above: Performed By: #### L 500.4050, L501.2450, L100.0100 #### [facility] Laboratory [address] [place], [address] Creatinine [Mass/Vol] 0.91 mg/dL Normal 0.70-1.20 [facility] Comment on above: Performed By: #### L 500.4050, L501.2450, L100.0100 #### [facility] Laboratory [address] [place], [address] GAP 18 High 5-15 [facility] Comment on above: Performed By: #### L 500.4050, L501.2450, L100.0100 #### [facility] Laboratory [address] [place], [address] GFR/1.73 sq M.predicted among non-blacks MDRD (S/P/Bld) [Vol rate/Area] 81 mL/min/{1.73_m2} Normal >60 [facility] Comment on above: Result Comment: mL/m in/1.73m2 CKD-EPI Creatinine Equation (2020) Performed By: #### L 500.4050, L501.2450, L100.0100 #### [facility] Laboratory [address] [place], [address] Globulin (S) [Mass/Vol] 3.0 g/dL Normal 2.2-4.2 [facility] Comment on above: Performed By: #### L 500.4050, L501.2450, L100.0100 #### [facility] Laboratory [address] [place], [address] Glucose [Mass/Vol] 156 mg/dL High 70-99 [facility] Comment on above: Performed By: #### L 500.4050, L501.2450, L100.0100 #### [facility] Laboratory [address] [place], [address] Potassium [Moles/Vol] 2.9 mmol/L Low 3.3-5.1 [facility] Comment on above: Performed By: #### L 500.4050, L501.2450, L100.0100 #### [facility] Laboratory [address] [place], [address] Sodium [Moles/Vol] 138 mmol/L Normal 133-145 [facility] Comment on above: Performed By: #### L 500.4050, L501.2450, L100.0100 #### [facility] Laboratory [address] [place], [address] T PROT 7.4 g/dL Normal 5.9-8.4 [facility] Comment on above: Performed By: #### L 500.4050, L501.2450, L100.0100 #### [facility] Laboratory [address] [place], [address] Urea nitrogen [Mass/Vol] 11 mg/dL Normal 4-19 [facility] Comment on above: Performed By: #### L 500.4050, L501.2450, L100.0100 #### [facility] Laboratory [address] [place], [address] Emergency Department Summary on 04-04-2025 Emergency Department Summary [facility] Medical Records Department [address] [place] [address] Emergency Department Summary 04/04/25 MR#: [id number] Acct: [id number] Name: GUILLERMINA SERNA Rep #: [id number] : 1980 44 From: Александр Koenig MD PCP: Dr. Yoon Blevins MD Status:DEP ER Location: ED HPI History of Present Illness Chief Complaint: Abd Pain Narrative Narrative: 44-year-old female past medical history of bipolar disorder presents with nausea, vomiting, and left flank pain that began half an hour ago. She states that in the past remotely, she has had this pain before but was never evaluated for it. States it resolved on its own. While she states yesterday she vomited, 30 minutes ago she had sudden onset of sharp, stabbing left flank pain radiating towards the front. She states that she has had decreased urination today as well. No fevers or chills but she has had flashes of feeling hot and cold. She has vomited twice today without any blood in her emesis, denies any problems with bowel movements. No exacerbating or alleviating factors to her left flank pain. Started feeling increased nausea and wanted to vomit here in the emergency department. [facility] Medical History Health care maintenance Tobacco abuse, in remission Post viral syndrome Seasonal affective disorder Screening for thyroid disorder Chronic sinusitis Burning with urination UTI (urinary tract infection) Insomnia Obesity (BMI 30.0-34.9) Nausea GERD (gastroesophageal reflux disease) Acute sinusitis Tobacco abuse Depression Bipolar 1 disorder Migraines Rheumatoid arthritis Seasonal allergies Home Medications ???Medication ???Instructions ???Recorded ???Last Taken ???Type levonorgestrel (Mirena) 1 device intrauterine ONCE 0 Unknown History albuterol sulfate 90 mcg/actuation 2 puff inhalation Q6H PRN Unknown Rx aerosol inhaler shortness of breath or wheezing #8.5 grams sodium chloride 3 % nasal mist 1 spray intranasal BID 09/07/23 History amlodipine 5 mg tablet 5 mg PO DAILY #90 tabs 02/20/25 Rx bupropion HCl 100 mg tablet 100 mg PO BID 3 months #180 tabs 0 02/20/25 04/03/25 Rx levocetirizine 5 mg tablet (Xyzal) 5 mg PO QPM PRN allergy symptoms 02/20/25 Unknown Rx #90 tabs omeprazole 40 mg capsule,delayed 40 mg PO DAILY PRN heartburn 02/20 Unknown History release hydrocodone-acetamin ophen 5-325mg 1 tab PO Q6H PRN PRN Pain 3 days 04/04/25 Unknown Rx 5mg-325mg #10 TABLETS ondansetron 4 mg disintegrating 4 mg PO Q8H PRN PRN Nausea #10 tab s 04/04/25 Unknown Rx tablet triamcinolone acetonide 55 mcg 1 spray intranasal DAILY 04/04/25 04/03/25 History nasal spray aerosol (Nasacort) nitrofurantoin 100 mg PO Q12H 5 days #10 caps Unknown Rx monohydrate/macrocry stals 100 mg capsule (Macrobid) Allergy/AdvReac Type Severity Reaction Status Date / Time hazelnut Allergy Intermediate Food Verified 04/07/25 14:44 Allergy cat dander Allergy Mild Rash Verified 04/07/25 14:44 grass pollen Allergy Mild Rash Verified 04/07/25 14:44 Penicillins Allergy Mild Rash Verified 04/07/25 14:44 Family History Father Colon cancer Mother Osteoporosis Cancer brain cx Diabetes Other Arthritis Depression Surgical History History of rhinoplasty History of tubal ligation Social History household members: spouse number of children: 3 current occupational status: unemployed history of recent travel: No sexually active: No Smoking Status: Former smoker Tobacco: How many years used: 24 alcohol intake: never substance use type: does not use what type of physical activity do you participate in: none seatbelt use: always do you feel safe at home: Yes additional social history: - Sharath AREVALO ROS ED ROS Narrative Review of systems positive for left flank pain/low back pain radiating to front. Positive nausea and vomiting. Subjective fever, feelings of hot and cold. Decreased urination. No exacerbating or alleviating factors to her pain. EXAM Physical Exam Narrative Exam Narrative: Afebrile. Vital signs noted. Nontoxic-appearing. Cardiovascular examination reveals mild tachycardia. Lungs clear to auscultation bilaterally. Abdomen is soft and nontender without guarding or rebound. Positive bowel sounds. Positive CVA tenderness to percussion left. Started to dry heave on examination. Const Vital Signs: 04/04/25 14:03 04/04/25 16:02 Temperature 96.9 F L Temperature Source Temporal Pulse Rate 106 H 82 Respiratory Rate 20 H 1 (more content not included)... Normal [facility] Eosinophil percentageOrdered By: Александр Koenig on 04-04-2025 Eosinophils/100 WBC (Bld) 0.7 % 0-5 [facility] Erythrocyte distribution wid th ratioOrdered By: Александр Koenig on 04-04-2025 Erythrocyte distribution width (RBC) [Ratio] 13.4 % 11.6-14.6 [facility] Erythrocyte distribution wid th standard deviationOrdered By: Александр Koenig on 04-04-2025 Erythrocyte distribution width (RBC) [Ratio] 41.7 fl 35.1-43.9 [facility] Glomerular filtration rate ( GFR) estimation/1.73 sq m using serum, plasma, or whole bOrdered By: Александр Koenig on 04-04-2025 GFR/1.73 sq M.predicted among non-blacks MDRD (S/P/Bld) [Vol rate/Area] 81 mL/min/{1.73_m2} >60 [facility] Comment on above: mL/min/1.73m2 CKD-EP I Creatinine Equation (2020) Hematocrit Auto (Bld) [Volum e fraction]Ordered By: Александр Koenig on 04-04-2025 Hematocrit (Bld) [Volume fraction] 42.9 % 37-47 [facility] Hemoglobin measurementOrdere d By: Александр Koenig on 04-04-2025 Hemoglobin (Bld) [Mass/Vol] 14.2 g/dL 12.0-15.0 [facility] Immature granulocytes/100 WB C Auto (Bld)Ordered By: Александр Koenig on 04-04-2025 Immature granulocytes/100 WBC (Bld) 0.500 % 0.0-0.9 [facility] Comment on above: IG% - Immature Granu locytes (promyelocytes, myelocytes and metamyelocytes) > 1% indicates that a LEFT SHIFT is Present. Ketones Test strip Ql (U)Ord ered By: Александр Koenig on 04-04-2025 Ketones Ql (U) 50 mg/dl High Negative [facility] Laboratory - Chemistry and C hemistry - challengeOrdered By: Александр Koenig on 04-04-2025 AST [Catalytic activity/Vol] 30 U/L <32 [facility] Lipaseon 04-04-2025 Lipase [Catalytic activity/Vol] 19 U/L Normal 13-75 [facility] Comment on above: Result Comment: Mark casey note: LIPASE revised reference range effective 23. New Lipase methodology. Expected to produce lower values than the previous assay method. NEW Reference Range: 13 - 75 U/L Performed By: #### L 500.4050, L501.2450, L100.0100 ####[facility] [id number] [place], [place], [address] Lipase measurementOrdered By : Александр Koenig on 04-04-2025 Lipase [Catalytic activity/Vol] 19 U/L 13-75 [facility] Comment on above: Please note:LIPASE r evised reference range effective 23. New Lipase methodology. Expected to produce lower values than the previous assay method. NEW Reference Range: 13 - 75 U/L MCV (mean corpuscular volume ) determinationOrdered By: Александр Koenig on 04-04-2025 MCV (RBC) [Entitic vol] 85.6 fL 81-99 [facility] Magnesiumon 0517-2025 Magnesium [Mass/Vol] 1.8 mg/dL Normal 1.5-2.2 [facility] Comment on above: Performed By: #### L 501.5200 ####[facility] [id number] [place], [address] Magnesium measurement (mass/ volume)Ordered By: Александр Koenig on 04-04-2025 Magnesium (Unsp spec) [Mass/Vol] 1.8 mg/dL 1.5-2.2 [facility] Mean corpuscular hemoglobin (MCH) determinationOrdered By: Александр Koenig on 04-04-2025 MCH (RBC) [Entitic mass] 28.3 pg 27.0-32.0 [facility] Mean corpuscular hemoglobin concentration (MCHC) determinationOrdered By: Александр Koenig on 04-04-2025 MCHC (RBC) [Mass/Vol] 33.1 g/dL 32-36 [facility] Mean platelet volume determi nationOrdered By: Александр Koenig on 04-04-2025 Platelet mean volume (Bld) [Entitic vol] 10.2 fL 6.2-12.0 [facility] Microscopic analysis of urin e for red blood cells (RBC)Ordered By: Александр Koenig on 04-04-2025 Microscopic analysis of urine for red blood cells (RBC) 10-25 SEEN /hpf 0-5 [facility] Monocyte percentageOrdered B y: Александр Koenig on 04-04-2025 Monocytes/100 WBC (Bld) 6.5 % 0-10 [facility] Mucus LM Ql (Urine sed)Order ed By: Александр Koenig on 04-04-2025 Mucus Ql (Urine sed) 0 SEEN /hpf [facility] Neutrophil percentageOrdered By: Александр Koenig on 04-04-2025 Neutrophils/100 WBC (Bld) 54.5 % 47-70 [facility] Nitrite Test strip Ql (U)Ord ered By: Александр Koenig on 04-04-2025 Nitrite Ql (U) Negative Negative [facility] Nucleated red blood cell per centageOrdered By: Александр Koenig on 05-17-2025 Nucleated RBC/100 WBC (Bld) [Ratio] 0 % 0-5 [facility] Platelet countOrdered By: Eriberto Koenig on 04-04-2025 Platelets (Bld) [#/Vol] 475 10*3/uL High 150-450 [facility] Platelet estimateOrdered By: Александр Koenig on 04-04-2025 Platelets LM Ql (Bld) SLT INC ADEQ [facility] Potassium measurement (mass/ volume)Ordered By: Александр Koenig on 04-04-2025 Potassium (Unsp spec) [Mass/Vol] 2.9 mmol/L Low 3.3-5.1 [facility] Protein Test strip Ql (U)Ord ered By: Александр Koenig on 04-04-2025 Protein Ql (U) 30 mg/dl High Negative [facility] RBC Auto (Bld) [#/Vol]Ordere d By: Александр Koenig on 04-04-2025 RBC (Bld) [#/Vol] 5.01 10*6/uL 4.2-5.4 [place] Review by pathologistOrdered By: Александр Koenig on 04-04-2025 Pathologist review [place] (Unsp spec) [Interp] March [facility] Serum creatinine measurement (mass/volume)Ordered By: Александр Koenig on 04-04-2025 Creatinine [Mass/Vol] 0.91 mg/dL 0.70-1.20 [facility] Serum globulin measurementOr dered By: Александр Koenig on 04-04-2025 Globulin (S) [Mass/Vol] 3.0 g/dL 2.2-4.2 [facility] Serum glucose measurement (m ass/volume)Ordered By: Александр Koenig on 04-04-2025 Glucose [Mass/Vol] 156 mg/dL High 70-99 [facility] Serum or plasma alanine pollard otransferase (ALT) measurementOrdered By: Александр Koenig on 04-04-2025 ALT [Catalytic activity/Vol] 32 U/L <35 [facility] Serum or plasma albumin harika urement (mass/volume)Ordered By: Александр Koenig on 04-04-2025 Albumin [Mass/Vol] 4.4 g/dL 3.5-5.0 [facility] Serum or plasma albumin/glob ulin mass ratioOrdered By: Александр Koenig on 04-04-2025 Albumin/Globulin [Mass ratio] 1.5 {ratio} 0.9-2.4 [facility] Serum or plasma alkaline gregorio sphatase measurementOrdered By: Александр Koenig on 04-04-2025 ALP [Catalytic activity/Vol] 100 U/L 35-104 [facility] Serum or plasma calcium harika urement (mass/volume)Ordered By: Александр Koenig on 04-04-2025 Calcium [Mass/Vol] 9.4 mg/dL 7.6-11.0 [facility] Serum or plasma urea nitroge n measurement (mass/volume)Ordered By: Александр Koenig on 04-04-2025 Urea nitrogen [Mass/Vol] 11 mg/dL 4-19 [facility] Sodium levelOrdered By: Александр Koenig on 04-04-2025 Sodium [Moles/Vol] 138 mmol/L 133-145 [facility] Squamous epithelial cells de tection in urine sediment by light microscopyOrdered By: Александр Koenig on 04-04-2025 Epithelial cells.squamous LM Ql (Urine sed) 0-5 SEEN /hpf 5-10 [facility] Total proteinOrdered By: Selam Koenig on 04-04-2025 Protein [Mass/Vol] 7.4 g/dL 5.9-8.4 [facility] Urinalysis, Completeon 04-04 BACTERIA 1+ /hpf Normal None Seen [facility] Comment on above: Order Comment: CLEAN CATCH Performed By: #### L 400.0001 #### [facility] Laboratory [address] [place], [place], [id number] EPI,SQUAMOUS 0-5 SEEN Normal 5-10 [facility] Comment on above: Order Comment: CLEAN CATCH Performed By: #### L 400.0001 #### [facility] Laboratory [address] [place], [address] RBC 10-25 SEEN Normal 0-5 [facility] Comment on above: Order Comment: CLEAN CATCH Performed By: #### L 400.0001 #### [facility] Laboratory [address] [place], [address] WBC 0-5 SEEN Normal 0-5 [facility] Comment on above: Order Comment: CLEAN CATCH Performed By: #### L 400.0001 #### [facility] Laboratory [address] [place], [address] Mucus Ql (Urine sed) 0 SEEN Normal [facility] Comment on above: Order Comment: CLEAN CATCH Performed By: #### L 400.0001 #### [facility] Laboratory [address] [place], [address] Urine clarityOrdered By: Selam Koenig on 04-04-2025 Clarity (U) Clear Clear [facility] Urine color determinationOrd ered By: Александр Koenig on 04-04-2025 Color (U) Yellow Yellow [facility] Urine glucose detectionOrder ed By: Александр Koenig on 04-04-2025 Glucose Ql (U) 100 mg/dl High Normal [facility] Urine leukocyte esterase det ection by dipstickOrdered By: Александр Koenig on 04-04-2025 Leukocyte esterase Test strip Ql (U) 100 /ul High Negative [facility] Urine pHOrdered By: Александр hart on 04-04-2025 pH (U) 7.0 [pH] 5.0 - 8.0 [facility] Urine sediment bacteria coun t by microscopy (number/high power field)Ordered By: Александр Koenig on 04-04-2025 Bacteria LM.HPF (Urine sed) [#/Area] 1 /[HPF] None Seen [facility] Urine specific gravity measu rementOrdered By: Александр Koenig on 04-04-2025 Specific gravity (U) [Rel density] 1.010 1.002-1.030 [facility] Urine urobilinogen measureme ntOrdered By: Александр Koenig on 04-04-2025 Urobilinogen Ql (U) Normal mg/dl Normal [facility] White blood cell (WBC) count Ordered By: Александр Koenig on 04-04-2025 WBC (Bld) [#/Vol] 16.8 10*3/uL High 4.4-11.0 [place] White blood cell countOrdere d By: Александр Koenig on 04-04-2025 White blood cell count 0-5 SEEN /hpf 0-5 [facility] Absolute lymphocyte countOrd ered By: Yoon Blevins on 02-20-2025 Lymphocytes Auto (Unsp spec) [#/Vol] 3.79 10*3/uL 0.83-4.51 [facility] Absolute neutrophil countOrd ered By: Yoon Blevins on 02-20-2025 Neutrophils (Bld) [#/Vol] 5.7 10*3/uL 2.0-7.7 [facility] Anion gap in Serum or Plasma Ordered By: Yoon Blevins on 02-20-2025 Anion gap [Moles/Vol] 13 mmol/L 5-15 [facility] Automated lymphocyte count a s percentage of total leukocytesOrdered By: Yoon Blevins on 02-20-2025 Lymphocytes/100 WBC Auto (Unsp spec) 36.0 % 19-41 [facility] BUN/creatinine ratioOrdered By: amy Blevins on 02-20-2025 Urea nitrogen/Creatinine [Mass ratio] 12.3 mg/mg 10-20 [facility] Basophil percentageOrdered B y: Yoon Blevins on 02-20-2025 Basophils/100 WBC (Bld) 0.9 % 0-1 [facility] Bilirubin, totalOrdered By: Yoon Blevins on 02-20-2025 Bilirubin [Mass/Vol] 0.19 mg/dL 0.00-1.30 [facility] CBC W/Diff, Automatedon Absolute Lymph 3.79 X10 3/uL Normal 0.83-4.51 [facility] Comment on above: Performed By: #### L 100.0100, L500.4050 #### [facility] Laboratory [address] [place], [place], [id number] Absolute Neut 5.7 X10 3/uL Normal 2.0-7.7 [facility] Comment on above: Performed By: #### L 100.0100, L500.4050 #### [facility] Laboratory [address] [place], [address] Basophils/100 WBC (Bld) 0.9 % Normal 0-1 [facility] Comment on above: Performed By: #### L 100.0100, L500.4050 #### [facility] Laboratory [address] [place], [address] Eosinophils/100 WBC (Bld) 1.5 % Normal 0-5 [facility] Comment on above: Performed By: #### L 100.0100, L500.4050 #### [facility] [address] [place], [address] Erythrocyte distribution width (RBC) [Ratio] 13.2 % Normal 11.6-14.6 [facility] Comment on above: Performed By: #### L 100.0100, L500.4050 #### [facility] [address] [place], [address] Hematocrit (Bld) [Volume fraction] 44.4 % Normal 37-47 [facility] Comment on above: Performed By: #### L 100.0100, L500.4050 #### [facility] [address] [place], [address] Hemoglobin (Bld) [Mass/Vol] 14.3 g/dL Normal 12.0-15.0 [facility] Comment on above: Performed By: #### L 100.0100, L500.4050 #### [facility] [address] [place], [address] IG% 0.500 Normal 0.0-0.9 [facility] Comment on above: Result Comment: IG% - Immature Granulocytes (promyelocytes, myelocytes and metamyelocytes) > 1% indicates that a LEFT SHIFT is Present. Performed By: #### L 100.0100, L500.4050 #### [facility] [address] [place], [address] Lymphocytes/100 WBC (Bld) 36.0 % Normal 19-41 [facility] Comment on above: Performed By: #### L 100.0100, L500.4050 #### [facility] [address] [place], [address] MCH (RBC) [Entitic mass] 28.0 pg Normal 27.0-32.0 [facility] Comment on above: Performed By: #### L 100.0100, L500.4050 #### [facility] [address] [place], [address] MCHC (RBC) [Mass/Vol] 32.2 g/dL Normal 32-36 [facility] Comment on above: Performed By: #### L 100.0100, L500.4050 #### [facility] [address] [place], [address] MCV (RBC) [Entitic vol] 87.1 fL Normal 81-99 [facility] Comment on above: Performed By: #### L 100.0100, L500.4050 #### [facility] [address] [place], [address] Monocytes/100 WBC (Bld) 6.7 % Normal 0-10 [facility] Comment on above: Performed By: #### L 100.0100, L500.4050 #### [facility] [address] [place], [address] Neutrophils/100 WBC (Bld) 54.4 % Normal 47-70 [facility] Comment on above: Performed By: #### L 100.0100, L500.4050 #### [facility] [address] [place], [address] Nucleated RBC (Bld) [#/Vol] 0 10*3/uL Normal 0-5 [facility] Comment on above: Performed By: #### L 100.0100, L500.4050 #### [facility] [address] [place], [address] Platelet mean volume (Bld) [Entitic vol] 10.6 fL Normal 6.2-12.0 [facility] Comment on above: Performed By: #### L 100.0100, L500.4050 #### [facility] [address] [place], [address] Platelets (Bld) [#/Vol] 444 10*3/uL Normal 150-450 [facility] Comment on above: Performed By: #### L 100.0100, L500.4050 #### [facility] [address] [place], [address] RBC (Bld) [#/Vol] 5.10 10*6/uL Normal 4.2-5.4 [place] Comment on above: Performed By: #### L 100.0100, L500.4050 #### [facility] [address] [place], [address] RDW SD 42.5 fl Normal 35.1-43.9 [facility] Comment on above: Performed By: #### L 100.0100, L500.4050 #### [facility] [address] [place], [address] WBC (Bld) [#/Vol] 10.5 10*3/uL Normal 4.4-11.0 [place] Comment on above: Performed By: #### L 100.0100, L500.4050 #### [facility] [address] [place], [address] Carbon dioxide, total [Moles /volume] in Central venous bloodOrdered By: Yoon Blevins on 02-20-2025 CO2 [Moles/Vol] 21.3 mmol/L 21.0-32.0 [facility] Chloride assayOrdered By: Geeta suzannesarah Ríoscristonilam on 02-20-2025 Chloride [Moles/Vol] 106 mmol/L 98-108 [facility] Comprehensive Metabolic Prof ilon 02-20-2025 Albumin [Mass/Vol] 4.2 g/dL Normal 3.5-5.0 [facility] Comment on above: Performed By: #### L 100.0100, L500.4050 #### [facility] [address] [place], [address] Albumin/Globulin [Mass ratio] 1.4 {ratio} Normal 0.9-2.4 [facility] Comment on above: Performed By: #### L 100.0100, L500.4050 #### [facility] [address] [place], [address] ALK PHOS 97 U/L Normal 35-104 [facility] Comment on above: Performed By: #### L 100.0100, L500.4050 #### [facility] [address] [place], [address] ALT [Catalytic activity/Vol] 23 U/L Normal <=34 [facility] Comment on above: Performed By: #### L 100.0100, L500.4050 #### [facility] [address] [place], [address] AST [Catalytic activity/Vol] 22 U/L Normal <=31 [facility] Comment on above: Performed By: #### L 100.0100, L500.4050 #### [facility] [address] [place], [address] Bilirubin [Mass/Vol] 0.19 mg/dL Normal 0.00-1.30 [facility] Comment on above: Performed By: #### L 100.0100, L500.4050 #### [facility] [address] [place], [address] BUN/CRE 12.3 RATIO Normal 10-20 [facility] Comment on above: Performed By: #### L 100.0100, L500.4050 #### [facility] [address] [place], [address] Calcium [Mass/Vol] 9.5 mg/dL Normal 7.6-11.0 [facility] Comment on above: Performed By: #### L 100.0100, L500.4050 #### [facility] [address] [place], [address] Chloride [Moles/Vol] 106 mmol/L Normal 98-108 [facility] Comment on above: Performed By: #### L 100.0100, L500.4050 #### [facility] [address] [place], [address] CO2 [Moles/Vol] 21.3 mmol/L Normal 21.0-32.0 [facility] Comment on above: Performed By: #### L 100.0100, L500.4050 #### [facility] [address] [place], [address] Creatinine [Mass/Vol] 0.65 mg/dL Low 0.70-1.20 [facility] Comment on above: Performed By: #### L 100.0100, L500.4050 #### [facility] [address] [place], [address] GAP 13 Normal 5-15 [facility] Comment on above: Performed By: #### L 100.0100, L500.4050 #### [facility] [address] [place], [address] GFR/1.73 sq M.predicted among non-blacks MDRD (S/P/Bld) [Vol rate/Area] 113 mL/min/{1.73_m2} Normal >60 [facility] Comment on above: Result Comment: mL/m in/1.73m2 CKD-EPI Creatinine Equation (2020) Performed By: #### L 100.0100, L500.4050 #### [facility] [address] [place], [address] Globulin (S) [Mass/Vol] 2.9 g/dL Normal 2.2-4.2 [facility] Comment on above: Performed By: #### L 100.0100, L500.4050 #### [facility] [address] [place], [address] Glucose [Mass/Vol] 116 mg/dL High 70-99 [facility] Comment on above: Performed By: #### L 100.0100, L500.4050 #### [facility] [address] [place], [address] Potassium [Moles/Vol] 3.9 mmol/L Normal 3.3-5.1 [facility] Comment on above: Performed By: #### L 100.0100, L500.4050 #### [facility] [address] [place], [address] Sodium [Moles/Vol] 140 mmol/L Normal 133-145 [facility] Comment on above: Performed By: #### L 100.0100, L500.4050 #### [facility] [address] [place], [address] T PROT 7.1 g/dL Normal 5.9-8.4 [facility] Comment on above: Performed By: #### L 100.0100, L500.4050 #### [facility] [address] [place], [address] Urea nitrogen [Mass/Vol] 8 mg/dL Normal 4-19 [facility] Comment on above: Performed By: #### L 100.0100, L500.4050 #### [facility] [address] [place], [address] Eosinophil percentageOrdered By: Yoon Blevins on 02-20-2025 Eosinophils/100 WBC (Bld) 1.5 % 0-5 [facility] Erythrocyte distribution wid th (RBC) [Ratio]Ordered By: Yoon Blevins on 02-20-2025 Erythrocyte distribution width (RBC) [Entitic vol] 42.5 fL 35.1-43.9 [facility] Erythrocyte distribution wid th ratioOrdered By: Yoon Blevins on 02-20-2025 Erythrocyte distribution width (RBC) [Ratio] 13.2 % 11.6-14.6 [facility] Erythrocyte distribution wid th standard deviationOrdered By: Yoon Blevins on 02-20-2025 Erythrocyte distribution width (RBC) [Ratio] 42.5 fl 35.1-43.9 [facility] GFR/1.73 sq M.predicted miguelina g non-blacks MDRD (S/P/Bld) [Vol rate/Area]Ordered By: Yoon Blevins on 02-20-2025 Estimated GFR (MDRD) Non-Af Amer 113 >60 [facility] Comment on above: mL/min/1.73m2 CKD-EP I Creatinine Equation (2020) Glomerular filtration rate ( GFR) estimation/1.73 sq m using serum, plasma, or whole bOrdered By: Yoon Blevins on 02-20-2025 GFR/1.73 sq M.predicted among non-blacks MDRD (S/P/Bld) [Vol rate/Area] 113 mL/min/{1.73_m2} >60 [facility] Comment on above: mL/min/1.73m2 CKD-EP I Creatinine Equation (2020) Hematocrit Auto (Bld) [Volum e fraction]Ordered By: Yoon Blevins 02-20-2025 Hematocrit (Bld) [Volume fraction] 44.4 % 37-47 [facility] Hemoglobin measurementOrdere d By: Yoon Blevins 02-20-2025 Hemoglobin (Bld) [Mass/Vol] 14.3 g/dL 12.0-15.0 [facility] Immature granulocytes/100 WB C Auto (Bld)Ordered By: Yoon Blevins on 02-20-2025 Immature granulocytes/100 WBC (Bld) 0.500 % 0.0-0.9 [facility] Comment on above: IG% - Immature Granu locytes (promyelocytes, myelocytes and metamyelocytes) > 1% indicates that a LEFT SHIFT is Present. Internal Medicine Office Vis itoharoon 02-20-2025 Internal Medicine Office Visit [facility] [address] [place] [address] [place] [address] OFFICE VISIT Date of Service: 02/20/25 MR#: [id number] Acct: [id number] Name: GUILLERMINA SERNA Rep #: [id number] : 1980 Provider: Dr. Yoon king MD Age/Sex: 44/F [place] [facility] Status: Signed Intake Vital Signs 11/14/24 14:21 02/20/25 14:29 Height 5 ft 6 in 5 ft 6 in Weight: 233 lb BMI 37.5 BP 120/68 Blood Pressure Location Rt brachial Position Sitting Respiration 18 Pulse 90 Pulse Source Monitor Temp 97.8 F Temp Source Temporal Pulse Oximetry (%) 98 Oxygen Delivery Method room air Intake Visit Reasons: 3 M FU Chief Complaint: 3 M FU [employer] Work[employer] Required: No Accompanied by: Is patient in pain?: No Allergies hazelnut Allergy (Intermediate, Verified 02/20/25 14:30) Food Allergy cat dander Allergy (Mild, Verified 02/20/25 14:30) Rash grass pollen Allergy (Mild, Verified 02/20/25 14:30) Rash Penicillins Allergy (Mild, Verified 02/20/25 14:30) Rash Medications ???Medication ???Instructions ???Recorded ???Confirmed ???Type levonorgestrel (Mirena) 1 device intrauterine ONCE 0 02/20/25 History albuterol sulfate 90 mcg/actuation 2 puff inhalation Q6H PRN 02/20/25 Rx aerosol inhaler shortness of breath or wheezing #8.5 grams sodium chloride 3 % nasal mist spray intranasal BID 09/07/23/0 03/13 History triamcinolone acetonide 55 mcg intranasal DAILY 09/07/230 03/13 History mcg/actuation nasal spray,aerosol amlodipine 5 mg tablet 5 mg PO DAILY #90 tabs 02/20/25 Rx bupropion HCl 100 mg tablet 100 mg PO BID 3 months #180 tabs 0 02/20/25 02/20/25 Rx levocetirizine 5 mg tablet (Xyzal) 5 mg PO QPM PRN allergy symptoms 02/20/25 02/20/25 Rx #90 tabs omeprazole 40 mg capsule,delayed 40 mg PO DAILY PRN 02/20/25 Histo ry release Nurse's Note: pt reports that sometimes she takes her omeprazole twice daily due to her reflux has been worsening pt requesting Refill on all of her medications [facility] Medical History Health care maintenance Tobacco abuse, in remission Post viral syndrome Seasonal affective disorder Screening for thyroid disorder Chronic sinusitis Burning with urination UTI (urinary tract infection) Insomnia Obesity (BMI 30.0-34.9) Nausea GERD (gastroesophageal reflux disease) Acute sinusitis Tobacco abuse Depression Bipolar 1 disorder Migraines Rheumatoid arthritis Seasonal allergies Surgical History History of rhinoplasty History of tubal ligation Family History Father Colon cancer Mother Osteoporosis Cancer brain cx Diabetes Other Arthritis Depression Social History household members: spouse number of children: 3 current occupational status: unemployed history of recent travel: No sexually active: No Smoking Status: Current every day smoker tobacco type: e-cigarettes Tobacco: How many years used: 24 alcohol intake: never substance use type: does not use what type of physical activity do you participate in: none seatbelt use: always do you feel safe at home: Yes additional social history: - Sharath [facility] Chief Complaint: 3 M FU Details: GUILLERMINA SERNA, is a 44 F who presents to the office today for follow-up of her chronic conditions. No acute concerns at this time. History of hypertension currently on amlodipine. Blood pressure today at 120/68 mmHg. She states that she is taking her medication consistently. No chest pain, palpitation or worsening shortness of breath. Also history of. Currently on Wellbutrin which was also beneficial for smoking cessation. She would like a refill. Tolerating medication well. Chronic history of sinusitis no acute concerns at this time. She would like a refill on Xyzal as well. ROS Const Constitutional: No body ache, excessive sweating, fatigue, fever(s), frequent falls, headache(s), snoring, weakness, weight change, sleep problems or change in appetite Eyes Eyes: No blurry vision, change in vision, bulging eyes, floaters, visual disturbances, eye pain or Light sensitivity ENT ENT: No abnormal hearing, ear or mastoid pain, tinnitus, balance problems, nosebleed/epistaxis, nasal congestion, headache(s), neck pain or sore throat Resp Respiratory: No cough, excessive phlegm production, pain on inspiration, shortness of breath, snoring or wheezing Cardio Cardiology: No chest pain at rest, chest pain with exertion, excessive sweating, shortness of breath, dyspnea on exertion, lightheadedness, orthopnea or palpitations Gastro (more content not included)... Normal [facility] - Chemistry and C hemistry - challengeOrdered By: Yoon Blevins on 02-20-2025 AST [Catalytic activity/Vol] 22 U/L <32 [facility] Lymphocytes Auto (Unsp spec) [#/Vol]Ordered By: Yoon Blevins on 02-20-2025 Lymphocytes (Bld) [#/Vol] 3.79 10*3/uL 0.83-4.51 [facility] Lymphocytes/100 WBC Auto (Un sp spec)Ordered By: Yoon Blevins on 02-20-2025 Lymphocytes/100 WBC (Bld) 36.0 % 19-41 [facility] MCV (mean corpuscular volume ) determinationOrdered By: Yoon Blevins on 02-20-2025 MCV (RBC) [Entitic vol] 87.1 fL 81-99 [facility] Mean corpuscular hemoglobin (MCH) determinationOrdered By: Yoon Blevins on 02-20-2025 MCH (RBC) [Entitic mass] 28.0 pg 27.0-32.0 [facility] Mean corpuscular hemoglobin concentration (MCHC) determinationOrdered By: Yoon Blevins on 02-20-2025 MCHC (RBC) [Mass/Vol] 32.2 g/dL 32-36 [facility] Mean platelet volume determi nationOrdered By: Yoon Blevins on 02-20-2025 Platelet mean volume (Bld) [Entitic vol] 10.6 fL 6.2-12.0 [facility] Monocyte percentageOrdered B y: Yoon Blevins on 02-20-2025 Monocytes/100 WBC (Bld) 6.7 % 0-10 [facility] Neutrophil percentageOrdered By: Yoon Blevins on 02-20-2025 Neutrophils/100 WBC (Bld) 54.4 % 47-70 [facility] Nucleated red blood cell per centageOrdered By: Yoon Blevins on 02-20-2025 Nucleated RBC/100 WBC (Bld) [Ratio] 0 % 0-5 [facility] Platelet countOrdered By: Geeta Blevins on 02-20-2025 Platelets (Bld) [#/Vol] 444 10*3/uL 150-450 [facility] Potassium (Unsp spec) [Mass/ Vol]Ordered By: Yoon Blevins on 02-20-2025 Potassium [Moles/Vol] 3.9 mmol/L 3.3-5.1 [facility] Potassium measurement (mass/ volume)Ordered By: Yoon Blevins on 02-20-2025 Potassium (Unsp spec) [Mass/Vol] 3.9 mmol/L 3.3-5.1 [facility] RBC Auto (Bld) [#/Vol]Ordere d By: Yoon Blevins on 02-20-2025 RBC (Bld) [#/Vol] 5.10 10*6/uL 4.2-5.4 [place] Serum creatinine measurement (mass/volume)Ordered By: Yoon Blevins on 02-20-2025 Creatinine [Mass/Vol] 0.65 mg/dL Low 0.70-1.20 [facility] Serum globulin measurementOr dered By: Yoon Blevins on 02-20-2025 Globulin (S) [Mass/Vol] 2.9 g/dL 2.2-4.2 [facility] Serum glucose measurement (m ass/volume)Ordered By: Yoon Blevins on 02-20-2025 Glucose [Mass/Vol] 116 mg/dL High 70-99 [facility] Serum or plasma alanine pollard otransferase (ALT) measurementOrdered By: Yoon Blevins on 02-20-2025 ALT [Catalytic activity/Vol] 23 U/L <35 [facility] Serum or plasma albumin harika urement (mass/volume)Ordered By: Yoon Blevins on 02-20-2025 Albumin [Mass/Vol] 4.2 g/dL 3.5-5.0 [facility] Serum or plasma albumin/glob ulin mass ratioOrdered By: Yoon Blevins 02-20-2025 Albumin/Globulin [Mass ratio] 1.4 {ratio} 0.9-2.4 [facility] Serum or plasma alkaline gregorio sphatase measurementOrdered By: Yoon Blevins 02-20-2025 ALP [Catalytic activity/Vol] 97 U/L 35-104 [facility] Serum or plasma calcium harika urement (mass/volume)Ordered By: Yoon Blevins 02-20-2025 Calcium [Mass/Vol] 9.5 mg/dL 7.6-11.0 [facility] Serum or plasma urea nitroge n measurement (mass/volume)Ordered By: Yoon Blevins 02-20-2025 Urea nitrogen [Mass/Vol] 8 mg/dL 4-19 [facility] Sodium levelOrdered By: Felicia Blevins on 02-20-2025 Sodium [Moles/Vol] 140 mmol/L 133-145 [facility] Total proteinOrdered By: Edilberto Blevins on 02-20-2025 Protein [Mass/Vol] 7.1 g/dL 5.9-8.4 [facility] White blood cell (WBC) count Ordered By: Yoon Blevins 02-20-2025 WBC (Bld) [#/Vol] 10.5 10*3/uL 4.4-11.0 [facility] Internal Medicine Office Vis frederick 11-14-2024 Internal Medicine Office Visit [facility] [address] [place], [place] [id number] OFFICE VISIT Date of Service: 11/14/24 MR#: [id number] Acct: [id number] Name: GUILLERMINA SERNA Rep #: [id number] : 1980 Provider: Dr. Yoon king MD Age/Sex: 44/F Location[place] [facility] Status: Signed Intake Vital Signs 06/27/24 12:56 11/14/24 14:21 Height 5 ft 6 in 5 ft 6 in Weight: 227 lb BMI 36.6 BP 140/86 H Blood Pressure Location Lt brachial Position Sitting Respiration 16 Pulse 118 H Pulse Source Monitor Temp 97.6 F L Temp Source Temporal Pulse Oximetry (%) 97 Oxygen Delivery Method room air Intake Visit Reasons: 4 M FU Chief Complaint: 4 M FU [employer] Worker Required: No Accompanied by: Is patient in pain?: No Allergies hazelnut Allergy (Intermediate, Verified 11/14/24 14:13) Food Allergy cat dander Allergy (Mild, Verified 11/14/24 14:13) Rash grass pollen Allergy (Mild, Verified 11/14/24 14:13) Rash Penicillins Allergy (Mild, Verified 11/14/24 14:13) Rash Medications ???Medication ???Instructions ???Recorded ???Confirmed ???Type levonorgestrel (Mirena) 1 device intrauterine ONCE 09/01/20 11/14/24 History omeprazole 40 mg capsule,delayed 40 mg PO DAILY #90 caps 12/08/22 11/14/24 Rx release albuterol sulfate 90 mcg/actuation 2 puff inhalation Q6H PRN 03/07/23 11/14/24 Rx aerosol inhaler shortness of breath or wheezing #8.5 grams amlodipine 5 mg tablet 5 mg PO DAILY #90 tabs 09/07/23 11/14/24 Rx levocetirizine 5 mg tablet (Xyzal) 5 mg PO QPM PRN allergy symptoms 09/07/23 11/14/24 Rx #90 tabs sodium chloride 3 % nasal mist spray intranasal BID 09/07/23 11/14/24 History triamcinolone acetonide 55 mcg intranasal DAILY 09/07/23 11/14/24 History mcg/actuation nasal spray,aerosol bupropion HCl 100 mg tablet 100 mg PO BID 3 months #180 tabs 06/27/24 11/14/24 Rx PFSH Medical History Health care maintenance Tobacco abuse, in remission Post viral syndrome Seasonal affective disorder Screening for thyroid disorder Chronic sinusitis Burning with urination UTI (urinary tract infection) Insomnia Obesity (BMI 30.0-34.9) Nausea GERD (gastroesophageal reflux disease) Acute sinusitis Tobacco abuse Depression Bipolar 1 disorder Migraines Rheumatoid arthritis Seasonal allergies Surgical History History of rhinoplasty History of tubal ligation Family History Father Colon cancer Mother Osteoporosis Cancer brain cx Diabetes Other Arthritis Depression Social History household members: spouse number of children: 3 current occupational status: unemployed history of recent travel: No sexually active: No Smoking Status: Current every day smoker tobacco type: e-cigarettes Tobacco: How many years used: 24 alcohol intake: never substance use type: does not use what type of physical activity do you participate in: none seatbelt use: always do you feel safe at home: Yes additional social history: - Sharath [facility] Chief Complaint: 4 M FU Details: GUILLERMINA SERNA, is a 44 F who presents to the office today for follow-up of her chronic medical conditions. She reports a 1 day history of nasal congestion, chills and overall feeling of unwell. No known sick contacts. History of chronic sinusitis. Has tried Tylenol but nothing else. She has been using her chronic medications as prescribed. History of hypertension, blood pressure is elevated today she however attributes this to feeling unwell and waking up from a nightmare. Does not routinely check her numbers at home but reports compliance with her medication. Heart rate is elevated, she denies palpitations. Other chronic medical conditions are stable. ROS Const Constitutional: Positive for chills; No body ache, excessive sweating, fatigue, fever(s), frequent falls, headache(s), snoring, weakness or change in appetite Eyes Eyes: No blurry vision, change in vision, bulging eyes, floaters, visual disturbances, eye pain or Light sensitivity ENT ENT: Positive for nasal congestion and sinus pressure; No abnormal hearing, ear or mastoid pain, tinnitus, balance problems, nosebleed/epistaxis, headache(s), neck pain or sore throat Resp Respiratory: No cough, excessive phlegm production, pain on inspiration, shortness of breath, snoring or wheezing Cardio Cardiology: No chest pain at rest, chest pain with exertion, excessive sweating, dyspnea on exertion, lightheadedness, orthopnea or palpitations Gastro GI: No abdominal pain, change in bowel habits, constipation, cramping, diarrhea, nausea/dyspepsia or vom (more content not included)... Normal [facility] SCRN MAMM (CAD)W/VERONICA BILATo n 08-08-2024 SCRN MAMM (CAD)W/VERONICA BILAT [facility] Imaging Services [address] [place] [id number] SCRN MAMM (CAD)W/VERONICA BILAT MR#: [id number] Acct: [id number] Name: GUILLERMINA SERNA Rep #: [id number] : 1980 F 43 From: Brennan conte MD PCP: Dr. Yoon Blevins MD Status: [facility] Study: SCRN MAMM (CAD)W/VERONICA BILAT Date of Exam: 07/21 Exam# [id number] Ordering Dr: Yoon Blevins MD [id number] MAMMOGRAPHY - BILATERAL SCREENING REASON FOR EXAM: Female, 43 years old. Routine annual screening examination. PERTINENT HISTORY: Non-contributory. TECHNIQUE: Digital bilateral breast veronica (3D mammographic acquisition) in the CC and MLO projections. 2-D mediolateral oblique (MLO) and craniocaudad (CC) views of both breasts were obtained. CAD: Full Field Digital Mammography with Computer Added Detection was performed. COMPARISON: None. Baseline examination. FINDINGS: Breast Composition: The breasts are heterogeneously dense, which may obscure small masses. There are no dominant masses or suspicious calcifications. Small benign-appearing bilateral axillary lymph nodes. No other significant abnormalities are identified. BI/SCRN MAMM (CAD)W/VERONICA BILAT IMPRESSION: Negative screening mammogram. Yearly followup mammogram recommended. (A) ASSESSMENT CATEGORY: BIRADS Category 2: Benign. A letter regarding these results will be sent to the patient by the facility within 30 days. Approximately 10% of breast cancers are not detected by mammography. A normal mammogram should not delay biopsy of a clinically suspicious abnormality. [id number] Electronically Signed: Brennan Franco MD at 10:50 EDT Reading Location ID and State: [address] [place] [address] , Service support , CC: Dr. Yoon Blevins MD Bill Recapitulation Clerk: Signed Normal [facility] Comprehensive Metabolic Prof ilon 06-27-2024 Albumin [Mass/Vol] 3.6 g/dL Normal 3.2-5.0 [facility] Comment on above: Performed By: #### L 500.4100, L500.4050 #### [facility] Laboratory [address] [place], [place], [address] Albumin/Globulin [Mass ratio] 0.9 {ratio} Normal 0.9-2.4 [facility] Comment on above: Performed By: #### L 500.4100, L500.4050 #### [facility] Laboratory [address] [place], [place], [id number] ALK P 79 U/L Normal 45-117 [facility] Comment on above: Performed By: #### L 500.4100, L500.4050 #### [facility] Laboratory [address] [place], [address] ALT [Catalytic activity/Vol] 38 U/L Normal 13-56 [facility] Comment on above: Performed By: #### L 500.4100, L500.4050 #### [facility] Laboratory [address] [place], [address] AST [Catalytic activity/Vol] 21 U/L Normal 15-37 [facility] Comment on above: Performed By: #### L 500.4100, L500.4050 #### [facility] Laboratory [address] [place], [address] Bilirubin [Mass/Vol] 0.40 mg/dL Normal 0.20-1.00 [facility] Comment on above: Result Comment: For patients on eltrombopag therapy, use of Dimension [place] TBIL is not recommended. Performed By: #### L 500.4100, L500.4050 #### [facility] Laboratory [address] [place], [address] BUN/CRE 8.1 RATIO Low 10-20 [facility] Comment on above: Performed By: #### L 500.4100, L500.4050 #### [facility] Laboratory [address] [place], [address] CA,Total 8.9 mg/dL Normal 8.5-10.1 [facility] Comment on above: Performed By: #### L 500.4100, L500.4050 #### [facility] Laboratory [address] [place], [address] Chloride [Moles/Vol] 106 mmol/L Normal 98-107 [facility] Comment on above: Performed By: #### L 500.4100, L500.4050 #### [facility] Laboratory [address] [place], [address] CO2 [Moles/Vol] 26.0 mmol/L Normal 21.0-32.0 [facility] Comment on above: Performed By: #### L 500.4100, L500.4050 #### [facility] Laboratory [address] [place], [address] Creatinine [Mass/Vol] 0.74 mg/dL Normal 0.55-1.02 [facility] Comment on above: Result Comment: The validity of the calculated GFR GFRAA in patients over 70 years has not been determined. Clinical correlation is essential. Performed By: #### L 500.4100, L500.4050 #### [facility] Laboratory [address] [place], [address] EST GFR - AA 111 mL/min Normal >60 [facility] Comment on above: Result Comment: Afri can Martiniquais GFR Calc Performed By: #### L 500.4100, L500.4050 #### [facility] Laboratory [address] [place], [address] GAP 5 Normal 5-15 [facility] Comment on above: Performed By: #### L 500.4100, L500.4050 #### [facility] Laboratory [address] [place], [address] GFR/1.73 sq M.predicted among non-blacks MDRD (S/P/Bld) [Vol rate/Area] 91 mL/min/{1.73_m2} Normal >60 [facility] Comment on above: Result Comment: Non- GFR Calc Performed By: #### L 500.4100, L500.4050 #### [facility] Laboratory [address] [place], [address] Globulin (S) [Mass/Vol] 3.9 g/dL Normal 2.2-4.2 [facility] Comment on above: Performed By: #### L 500.4100, L500.4050 #### [facility] Laboratory [address] [place], [address] Glucose [Mass/Vol] 116 mg/dL High 74-106 [facility] Comment on above: Result Comment: Fast ing Glucose result from 100 to 125 mg/dL suggests IMPAIRED HOMEOSTASIS per A.D.A. criteria. Performed By: #### L 500.4100, L500.4050 #### [facility] Laboratory [address] [place], [address] Potassium [Moles/Vol] 3.8 mmol/L Normal 3.5-5.1 [facility] Comment on above: Performed By: #### L 500.4100, L500.4050 #### [facility] Laboratory [address] [place], [address] Sodium [Moles/Vol] 137 mmol/L Normal 136-145 [facility] Comment on above: Performed By: #### L 500.4100, L500.4050 #### [facility] Laboratory [address] [place], [address] T PROT 7.5 g/dL Normal 6.4-8.2 [facility] Comment on above: Performed By: #### L 500.4100, L500.4050 #### [facility] Laboratory [address] [place], [address] Urea nitrogen [Mass/Vol] 6 mg/dL Low 7-18 [facility] Comment on above: Performed By: #### L 500.4100, L500.4050 #### [facility] Laboratory [address] [place], [address] Internal Medicine Office Vis frederick 06-27-2024 Internal Medicine Office Visit [facility] [address] [place] [address] OFFICE VISIT Date of Service: 06/27/24 MR#: [id number] Acct: [id number] Name: GUILLERMINA SERNA Rep #: [id number] : 1980 Provider: Dr. Yoon king MD Age/Sex: 43/F Location[place] [facility] Status: Signed Intake Vital Signs 04/18/24 12:56 06/27/24 12:56 Height 5 ft 6 in 5 ft 6 in Weight: 220 lb BMI 35.5 BP 132/82 H Blood Pressure Location Rt brachial Position Sitting Respiration 17 Pulse 96 Pulse Source Monitor Temp 97.0 F L Temp Source Temporal Pulse Oximetry (%) 98 Oxygen Delivery Method room air Intake Visit Reasons: 2 M FU Chief Complaint: 2 M FU Is patient in pain?: No Allergies hazelnut Allergy (Intermediate, Verified 06/27/24 12:57) Food Allergy cat dander Allergy (Mild, Verified 06/27/24 12:57) Rash grass pollen Allergy (Mild, Verified 06/27/24 12:57) Rash Penicillins Allergy (Mild, Verified 06/27/24 12:57) Rash Medications ???Medication ???Instructions ???Recorded ???Confirmed ???Type levonorgestrel 21 mcg/24 hr (up to 1 device intrauterine ONCE 09/01/20 06/27/24 History 8 years) 52 mg intrauterine device (Mirena) omeprazole 40 mg capsule,delayed 40 mg PO DAILY #90 caps 12/08/22 06/27/24 Rx release albuterol sulfate 90 mcg/actuation 2 puff inhalation Q6H PRN 03/07/23 06/27/24 Rx aerosol inhaler shortness of breath or wheezing #8.5 grams amlodipine 5 mg tablet 5 mg PO DAILY #90 tabs 09/07/23 06/27/24 Rx levocetirizine 5 mg tablet (Xyzal) 5 mg PO QPM PRN allergy symptoms 09/07/23 06/27/24 Rx #90 tabs sodium chloride 3 % nasal mist spray intranasal BID 09/07/23 06/27/24 History triamcinolone acetonide 55 mcg intranasal DAILY 09/07/23 06/27/24 History mcg/actuation nasal spray,aerosol bupropion HCl 100 mg tablet 100 mg PO BID 3 months #180 tabs 06/27/24 06/27/24 Rx PFSH Medical History (Updated 06/27/24 @ 13:[address] Yoon Blevins MD) Health care maintenance Tobacco abuse, in remission Post viral syndrome Seasonal affective disorder Screening for thyroid disorder Chronic sinusitis Burning with urination UTI (urinary tract infection) Insomnia Obesity (BMI 30.0-34.9) Nausea GERD (gastroesophageal reflux disease) Acute sinusitis Tobacco abuse Depression Bipolar 1 disorder Migraines Rheumatoid arthritis Seasonal allergies Surgical History History of rhinoplasty History of tubal ligation Family History Father Colon cancer Mother Osteoporosis Cancer brain cx Diabetes Other Arthritis Depression Social History household members: spouse number of children: 3 current occupational status: unemployed history of recent travel: No sexually active: No Smoking Status: Current every day smoker tobacco type: e-cigarettes Tobacco: How many years used: 24 alcohol intake: never substance use type: does not use what type of physical activity do you participate in: none seatbelt use: always do you feel safe at home: Yes additional social history: - [facility] HPI Chief Complaint: 2 M FU Details: GUILLERMINA SERNA, is a 43 F who presents to the office today for follow-up of her chronic conditions. Continues to do well on bupropion for smoking cessation. She denies any concerning side effects and would like to continue as she finds it helpful. She is concerned that if she stops it at this time, she will go back to smoking. History of hypertension, blood pressure today is at 132/82 mmHg. Taking her medication as prescribed. No chest pain, palpitation or shortness of breath. Also history of chronic sinusitis. Had seen ENT last year, Nasacort and saline spray was recommended. She finds these helpful. She however states that periods of increased allergy make her symptoms worse. Other chronic conditions are stable. ROS Const Constitutional: No body ache, chills, excessive sweating, fatigue, fever(s), frequent falls, headache(s), snoring, weight change, sleep problems, abnormal sleep pattern or change in appetite Eyes Eyes: No blurry vision, change in vision, dry eyes, bulging eyes, floaters, eye pain or Light sensitivity ENT ENT: No abnormal hearing, ear or mastoid pain, tinnitus, balance problems, nosebleed/epistaxis, nasal congestion, headache(s), neck pain or sore throat Resp Respiratory: No cough, excessive phlegm production, pain on inspiration, shortness of breath, snoring or wheezing Cardio Cardiology: No chest pain at rest, chest pain with exertion, excessive sweating, shortness of breath, dyspnea on exertion, lightheadedness, orthopnea or palpitations Gastro GI: N (more content not included)... Normal [facility] Lipid Profileon 06-27-2024 Cholesterol [Mass/Vol] 184 mg/dL Normal 200 [facility] Comment on above: Result Comment: <200 mg/dL Desirable 200-240 mg/dL Borderline >240 mg/dL High Risk Performed By: #### L 500.4100, L500.4050 #### [facility] Laboratory [address] [place], [address] Cholesterol in HDL [Mass/Vol] 48 mg/dL Normal [facility] Comment on above: Result Comment: The drugs N-Acetylcysteine and Metamizole may falsely depress this assay. Reference Range HDL <40 mg/dL Low HDL Cholesterol HDL >or= 60 mg/dL High HDL Cholesterol Performed By: #### L 500.4100, L500.4050 #### [facility] Laboratory [address] [place], [address] Cholesterol in LDL [Mass/Vol] 112 mg/dL Normal 0-130 [facility] Comment on above: Performed By: #### L 500.4100, L500.4050 #### [facility] Laboratory [address] [place], [address] Cholesterol in VLDL [Mass/Vol] 24 mg/dL Normal 5-40 [facility] Comment on above: Performed By: #### L 500.4100, L500.4050 #### [facility] Laboratory [address] [place], [address] Triglyceride [Mass/Vol] 120 mg/dL Normal [facility] Comment on above: Result Comment: The drugs N-Acetylcysteine and Metamizole may falsely depress this assay. Serum Triglycerides Reference Interval Normal <150 mg/dL Borderline high 150 - 199 mg/dL High 200 - 499 mg/dL Very High > or = 500 mg/dL Performed By: #### L 500.4100, L500.4050 #### [facility] Laboratory [address] [place], [address] Internal Medicine Office Vis iton 04-18-2024 Internal Medicine Office Visit [facility] [address] [place] [address] [place] [address] OFFICE VISIT Date of Service: 04/18/24 MR#: [id number] Acct: [id number] Name: GUILLERMINA SERNA Rep #: [id number] : 1980 Provider: Dr. Yoon king MD Age/Sex: 43/F Location[place] [facility] Status: Signed Intake Vital Signs 03/21/24 15:05 04/18/24 12:56 Height 5 ft 6 in 5 ft 6 in Weight: 211 lb BMI 34.0 BP 144/86 H Blood Pressure Location Lt brachial Position Sitting Respiration 17 Pulse 82 Pulse Source Monitor Temp 98.1 F Temp Source Temporal Pulse Oximetry (%) 97 Oxygen Delivery Method room air Intake Visit Reasons: 1 M FU Chief Complaint: 1 M FU Is patient in pain?: No Allergies hazelnut Allergy (Intermediate, Verified 04/18/24 12:51) Food Allergy cat dander Allergy (Mild, Verified 04/18/24 12:51) Rash grass pollen Allergy (Mild, Verified 04/18/24 12:51) Rash Penicillins Allergy (Mild, Verified 04/18/24 12:51) Rash Medications ???Medication ???Instructions ???Recorded ???Confirmed ???Type levonorgestrel 21 mcg/24 hr (up to 1 device intrauterine ONCE 09/01/20 04/18/24 History 8 years) 52 mg intrauterine device (Mirena) omeprazole 40 mg capsule,delayed 40 mg PO DAILY #90 caps 12/08/22 04/18/24 Rx release albuterol sulfate 90 mcg/actuation 2 puff inhalation Q6H PRN 03/07/23 04/18/24 Rx aerosol inhaler shortness of breath or wheezing #8.5 grams amlodipine 5 mg tablet 5 mg PO DAILY #90 tabs 09/07/23 04/18/24 Rx levocetirizine 5 mg tablet (Xyzal) 5 mg PO QPM PRN allergy symptoms 09/07/23 04/18/24 Rx #90 tabs sodium chloride 3 % nasal mist spray intranasal BID 09/07/23 04/18/24 History triamcinolone acetonide 55 mcg intranasal DAILY 09/07/23 04/18/24 History mcg/actuation nasal spray,aerosol bupropion HCl 100 mg tablet 100 mg PO BID 3 months #180 tabs 04/18/24 04/18/24 Rx PFSH Medical History (Updated 04/18/24 @ 13:[address] Yoon Blevins MD) Tobacco abuse, in remission Post viral syndrome Seasonal affective disorder Screening for thyroid disorder Chronic sinusitis Burning with urination UTI (urinary tract infection) Insomnia Obesity (BMI 30.0-34.9) Nausea GERD (gastroesophageal reflux disease) Acute sinusitis Tobacco abuse Depression Bipolar 1 disorder Migraines Rheumatoid arthritis Seasonal allergies Surgical History History of rhinoplasty History of tubal ligation Family History Father Colon cancer Mother Osteoporosis Cancer brain cx Diabetes Other Arthritis Depression Social History household members: spouse number of children: 3 current occupational status: unemployed history of recent travel: No sexually active: No Smoking Status: Current every day smoker tobacco type: e-cigarettes Tobacco: How many years used: 24 alcohol intake: never substance use type: does not use what type of physical activity do you participate in: none seatbelt use: always do you feel safe at home: Yes additional social history: - [facility] HPI Chief Complaint: 1 M FU Details: GUILLERMINA SERNA, is a 43 F who presents to the office today for follow-up. No acute concerns at this time. Started on Wellbutrin at her last visit for smoking cessation. She states that she has quit smoking. Did not need the nicotine patch and for the most part, tolerating Wellbutrin well. She is concerned about having to go off of it at some point and what might happen. She would like to stay on it for as long as possible. Other chronic conditions are largely stable. ROS Const Constitutional: No body ache, chills, excessive sweating, fatigue, fever(s), frequent falls, headache(s), snoring, weight change, sleep problems, abnormal sleep pattern or change in appetite Eyes Eyes: No blurry vision, change in vision, floaters, visual disturbances, eye pain or Light sensitivity ENT ENT: No abnormal hearing, ear or mastoid pain, tinnitus, balance problems, nosebleed/epistaxis, nasal congestion, headache(s), neck pain or sore throat Resp Respiratory: No cough, excessive phlegm production, pain on inspiration, shortness of breath, snoring or wheezing Cardio Cardiology: No chest pain at rest, chest pain with exertion, excessive sweating, shortness of breath, dyspnea on exertion, lightheadedness, orthopnea or palpitations Gastro GI: No abdominal pain, change in bowel habits, constipation, cramping, diarrhea, nausea/dyspepsia or vomiting Genitourinary-Female : No burning urination, painful urination, urinary incontinence, urinary frequency, suprapubic fullness, side pain, abnormal vaginal bleeding or pelvic pain (more content not included)... Normal [facility] Laboratory - Microbiology an d Antimicrobial susceptibilityOrdered By: Karl Block on 02-16-2024 SARS-CoV-2 (COVID-19) RNA NICHOLAS+probe Ql (Unsp spec) RSV [facility] Absolute lymphocyte countOrd ered By: Yoon Blevins on 12-14-2023 Lymphocytes Auto (Unsp spec) [#/Vol] 3.40 10*3/uL 0.83-4.51 [facility] Automated lymphocyte count a s percentage of total leukocytesOrdered By: Yoon Blevins on 12-14-2023 Lymphocytes/100 WBC Auto (Unsp spec) 30.1 % 19-41 [facility] Basophil percentageOrdered B y: Yoon Blevins on 12-14-2023 Basophils/100 WBC (Bld) 0.9 % 0-1 [facility] Bilirubin [Mass/Vol] 0.40 mg/dL 0.20-1.00 [facility] Comment on above: For patients on eltr ombopag therapy, use of Dimension [place] TBIL is not recommended. Chloride [Moles/Vol] 107 mmol/L 98-107 [facility] Eosinophils/100 WBC (Bld) 1.7 % 0-5 [facility] Glucose [Mass/Vol] 98 mg/dL 74-106 [facility] Hemoglobin (Bld) [Mass/Vol] 16.0 g/dL 12.0-15.0 [facility] Monocytes/100 WBC (Bld) 5.6 % 0-10 [facility] Neutrophils (Bld) [#/Vol] 6.9 10*3/uL 2.0-7.7 [facility] Neutrophils/100 WBC (Bld) 61.4 % 47-70 [facility] Potassium [Moles/Vol] 3.9 mmol/L 3.5-5.1 [facility] Protein [Mass/Vol] 7.2 g/dL 6.4-8.2 [facility] Sodium [Moles/Vol] 137 mmol/L 136-145 [facility] WBC (Bld) [#/Vol] 11.3 10*3/uL 4.4-11.0 [place] Determination of erythrocyte mean corpuscular volume (MCV)Ordered By: Yoon Blevins on 12-14-2023 MCV (RBC) [Entitic vol] 86.7 fL 81-99 [facility] Erythrocyte distribution wid th ratioOrdered By: [place] Blevins on 12-14-2023 Erythrocyte distribution width (RBC) [Ratio] 13.1 % 11.6-14.6 [facility] Erythrocyte distribution wid th standard deviationOrdered By: Yoon Blevins on 12-14-2023 Erythrocyte distribution width (RBC) [Entitic vol] 41.6 fL 35.1-43.9 [facility] Hematocrit Auto (Bld) [Volum e fraction]Ordered By: Yoon Blevins on 12-14-2023 Hematocrit (Bld) [Volume fraction] 49.1 % 37-47 [facility] Immature granulocytes/100 WB C Auto (Bld)Ordered By: Yoon Blevins on 12-14-2023 Immature granulocytes/100 WBC (Bld) 0.300 % 0.0-0.9 [facility] Comment on above: IG% - Immature Granu locytes (promyelocytes, myelocytes and metamyelocytes) > 1% indicates that a LEFT SHIFT is Present. Laboratory - Chemistry and C hemistry - challengeOrdered By: Yoon Blevins on 12-14-2023 Albumin/Globulin [Mass ratio] 1.1 {ratio} 0.9-2.4 [facility] ALP [Catalytic activity/Vol] 83 U/L 45-117 [facility] ALT [Catalytic activity/Vol] 21 U/L 13-56 [facility] CO2 [Moles/Vol] 26.0 mmol/L 21.0-32.0 [facility] Globulin (S) [Mass/Vol] 3.4 g/dL 2.2-4.2 [facility] Urea nitrogen/Creatinine [Mass ratio] 13.6 mg/mg 10-20 [facility] Laboratory - Hematology and Cell countsOrdered By: Yoon Blevins on 12-14-2023 MCH (RBC) [Entitic mass] 28.3 pg 27.0-32.0 [facility] MCHC (RBC) [Mass/Vol] 32.6 g/dL 32-36 [facility] Nucleated RBC/100 WBC (Bld) [Ratio] 0 % 0-5 [facility] Platelets (Bld) [#/Vol] 381 10*3/uL 150-450 [facility] No Panel InformationOrdered By: Yoon Blevins on 12-14-2023 Estimated GFR (MDRD) Amer 112 mL/min >60 [facility] Comment on above: GFR Calc Estimated GFR (MDRD) Non-Af Amer 93 mL/min >60 [facility] Comment on above: Non- GFR Calc Platelet mean volume Kody-Ec ker (Bld) [Entitic vol]Ordered By: Yoon Blevins on 12-14-2023 Platelet mean volume (Bld) [Entitic vol] 10.6 fL 6.2-12.0 [facility] RBC Auto (Bld) [#/Vol]Ordere d By: Yoon Blevins on 12-14-2023 RBC (Bld) [#/Vol] 5.66 10*6/uL 4.2-5.4 [place] Serum or plasma calcium harika urement (mass/volume)Ordered By: Yoon Blevins on 12-14-2023 Calcium [Mass/Vol] 9.2 mg/dL 8.5-10.1 [facility] Serum or plasma creatinine m easurement (mass/volume)Ordered By: Yoon Blevins on 12-14-2023 Creatinine [Mass/Vol] 0.73 mg/dL 0.55-1.02 [facility] [place] Comment on above: The validity of the calculated GFR & GFRAA in patients over 70 years has not been determined. Clinical correlation is essential. Serum or plasma thyroid stim ulating hormone (TSH) measurement (units/volume)Ordered By: suzannekaibetochuck Blevins on 12-14-2023 TSH Qn 3.24 uIU/mL 0.358-3.74 [facility] Serum or plasma urea nitroge n measurement (mass/volume)Ordered By: Yoon Blevins on 12-14-2023 Urea nitrogen [Mass/Vol] 10 mg/dL 7-18 [facility] Thin prep Papanicolaou smear with manual screeningOrdered By: Yoon Blevins on 12-14-2023 Thin prep Papanicolaou smear with manual screening 3.8 g/dL 3.2-5.0 [facility] Thin prep Papanicolaou smear with manual screening 11 U/L 15-37 [facility] Thin prep Papanicolaou smear with manual screening 4 5-15 [facility] Thin prep Papanicolaou smear with manual screening 1.25 ng/dL 0.76-1.46 [facility] Absolute lymphocyte countOrd ered By: Yoon Blevins on 06-01-2023 Lymphocytes Auto (Unsp spec) [#/Vol] 4.23 10*3/uL 0.83-4.51 [facility] Basophil percentageOrdered B y: Yoon Blevins on 06-01-2023 Basophils/100 WBC (Bld) 0.7 % 0-1 [facility] Bilirubin [Mass/Vol] 0.30 mg/dL 0.20-1.00 [facility] Comment on above: For patients on eltr ombopag therapy, use of Dimension [place] TBIL is not recommended. Chloride [Moles/Vol] 107 mmol/L 98-107 [facility] Cholesterol [Mass/Vol] 213 mg/dL <200 [facility] Comment on above: <200 mg/dL Desirable 200-240 mg/dL Borderline >240 mg/dL High Risk Eosinophils/100 WBC (Bld) 2.3 % 0-5 [facility] Glucose [Mass/Vol] 105 mg/dL 74-106 [facility] Comment on above: Fasting Glucose resu lt from 100 to 125 mg/dL suggests IMPAIRED HOMEOSTASIS per A.D.A. criteria. Neutrophils (Bld) [#/Vol] 6.9 10*3/uL 2.0-7.7 [facility] Neutrophils/100 WBC (Bld) 56.5 % 47-70 [facility] Potassium [Moles/Vol] 3.9 mmol/L 3.5-5.1 [facility] [place] Protein [Mass/Vol] 7.2 g/dL 6.4-8.2 [facility] Sodium [Moles/Vol] 137 mmol/L 136-145 [facility] Triglyceride [Mass/Vol] 166 mg/dL <199 [facility] Comment on above: The drugs N-Acetylcy steine and Metamizole may falsely depress this assay.Serum Triglycerides Reference Interval Normal <150 mg/dL Borderline high 150 - 199 mg/dL High 200 - 499 mg/dL Very High > or = 500 mg/dL WBC (Bld) [#/Vol] 12.2 10*3/uL 4.4-11.0 [place] Blood erythrocytes count (nu mber/volume)Ordered By: Yoon Blevins on 06-01-2023 RBC (Bld) [#/Vol] 5.17 10*6/uL 4.2-5.4 [place] Blood hemoglobin measurement (mass/volume)Ordered By: Yoon Blevins on 06-01-2023 Hemoglobin (Bld) [Mass/Vol] 15.4 g/dL 12.0-15.0 [facility] Blood lymphocytes/100 leukoc ytesOrdered By: Yoon Blevins on 06-01-2023 Lymphocytes/100 WBC (Bld) 34.7 % 19-41 [facility] Blood monocytes/100 leukocyt esOrdered By: amy Blevins on 06-01-2023 Monocytes/100 WBC (Bld) 5.6 % 0-10 [facility] Blood platelet mean volumeOr dered By: amy Blevins on 06-01-2023 Platelet mean volume (Bld) [Entitic vol] 10.5 fL 6.2-12.0 [facility] Determination of erythrocyte mean corpuscular volume (MCV)Ordered By: suzannekaibetochuck Blevins on 06-01-2023 MCV (RBC) [Entitic vol] 90.3 fL 81-99 [facility] Hematocrit Auto (Bld) [Volum e fraction]Ordered By: [facility] on 06-01-2023 Hematocrit (Bld) [Volume fraction] 46.7 % 37-47 [facility] Laboratory - Chemistry and C hemistry - challengeOrdered By: amy Blevins on 06-01-2023 ALP [Catalytic activity/Vol] 73 U/L 45-117 [facility] ALT [Catalytic activity/Vol] 30 U/L 13-56 [facility] CO2 [Moles/Vol] 25.0 mmol/L 21.0-32.0 [facility] Globulin (S) [Mass/Vol] 3.6 g/dL 2.2-4.2 [facility] Urea nitrogen/Creatinine [Mass ratio] 18.3 mg/mg 10-20 [facility] Laboratory - Hematology and Cell countsOrdered By: suzannekaibetochuck Blevins on 06-01-2023 Erythrocyte distribution width (RBC) [Entitic vol] 46.8 fL 35.1-43.9 [facility] Erythrocyte distribution width (RBC) [Ratio] 14.0 % 11.6-14.6 [facility] Immature granulocytes/100 WBC (Bld) 0.200 % 0.0-0.9 [facility] Comment on above: IG% - Immature Granu locytes (promyelocytes, myelocytes and metamyelocytes) > 1% indicates that a LEFT SHIFT is Present. MCH (RBC) [Entitic mass] 29.8 pg 27.0-32.0 [facility] Nucleated RBC/100 WBC (Bld) [Ratio] 0 % 0-5 [facility] MCHC Auto (RBC) [Mass/Vol]Or dered By: Yoon Blevins on 06-01-2023 MCHC (RBC) [Mass/Vol] 33.0 g/dL 32-36 [facility] [place] No Panel InformationOrdered By: Yoon Blevins on 06-01-2023 Estimated GFR (MDRD) Amer 107 mL/min >60 [facility] Comment on above: GFR Calc Estimated GFR (MDRD) Non-Af Amer 88 mL/min >60 [facility] Comment on above: Non- GFR Calc Platelets bldOrdered By: Edilberto Blevins on 06-01-2023 Platelets (Bld) [#/Vol] 403 10*3/uL 150-450 [facility] Serum or plasma albumin harika urement (mass/volume)Ordered By: Yoon Blevins on 06-01-2023 Albumin [Mass/Vol] 3.6 g/dL 3.2-5.0 [facility] Serum or plasma albumin/glob ulin mass ratioOrdered By: Yoon Blevins on 06-01-2023 Albumin/Globulin [Mass ratio] 1.0 {ratio} 0.9-2.4 [facility] Serum or plasma calcium harika urement (mass/volume)Ordered By: Yoon Blevins on 06-01-2023 Calcium [Mass/Vol] 9.0 mg/dL 8.5-10.1 [facility] Serum or plasma cholesterol in HDL measurement (mass/volume)Ordered By: Yoon Blevins on 06-01-2023 Cholesterol in HDL [Mass/Vol] 34 mg/dL >40 [facility] Comment on above: The drugs N-Acetylcy steine and Metamizole may falsely depress this assay. Reference Range HDL <40 mg/dL Low HDL Cholesterol HDL >or= 60 mg/dL High HDL Cholesterol Serum or plasma cholesterol in VLDL measurement (mass/volume)Ordered By: Yoon Blevins on 06-01-2023 Cholesterol in VLDL [Mass/Vol] 33 mg/dL 5-40 [facility] Serum or plasma creatinine m easurement (mass/volume)Ordered By: Yoon Blevins on 06-01-2023 Creatinine [Mass/Vol] 0.77 mg/dL 0.55-1.02 [facility] [place] Comment on above: The validity of the calculated GFR & GFRAA in patients over 70 years has not been determined. Clinical correlation is essential. Serum or plasma low density lipoprotein (LDL) cholesterol measurement (mass/volume)Ordered By: Yoon Blevins on 06-01-2023 Cholesterol in LDL [Mass/Vol] 146 mg/dL 0-130 [facility] Serum or plasma urea nitroge n measurement (mass/volume)Ordered By: Yoon Blevins on 06-01-2023 Urea nitrogen [Mass/Vol] 14 mg/dL 7-18 [facility] Thin prep Papanicolaou smear with manual screeningOrdered By: Yoon Blevins on 06-01-2023 Thin prep Papanicolaou smear with manual screening 11 U/L 15-37 [facility] Thin prep Papanicolaou smear with manual screening 5 5-15 [facility] Culture, urineOrdered By: Dr Eloina Blevins on 12-12-2022 Bacteria identified Cx Nom (U) Mixed Gram Pos & Gram Neg Org [facility] Basophil percentageOrdered B y: Dr. Blevins on 12-08-2022 Basophil percentage 10-25 SEEN /hpf 0-5 [facility] Chloride [Moles/Vol] 109 mmol/L 98-107 [facility] Cholesterol [Mass/Vol] 205 mg/dL <200 [facility] Comment on above: <200 mg/dL Desirable 200-240 mg/dL Borderline >240 mg/dL High Risk Glucose [Mass/Vol] 104 mg/dL 74-106 [facility] Comment on above: Fasting Glucose resu lt from 100 to 125 mg/dL suggests IMPAIRED HOMEOSTASIS per A.D.A. criteria. Potassium [Moles/Vol] 4.5 mmol/L 3.5-5.1 [facility] [place] Sodium [Moles/Vol] 141 mmol/L 136-145 [facility] Triglyceride [Mass/Vol] 186 mg/dL <199 [facility] Comment on above: The drugs N-Acetylcy steine and Metamizole may falsely depress this assay.Serum Triglycerides Reference Interval Normal <150 mg/dL Borderline high 150 - 199 mg/dL High 200 - 499 mg/dL Very High > or = 500 mg/dL Bilirubin Test strip Ql (U)O rdered By: Dr. Blevins on 12-08-2022 Bilirubin Ql (U) Negative Negative [facility] Ketones Test strip Ql (U)Ord ered By: Dr. Blevins on 12-08-2022 Ketones Ql (U) Negative Negative [facility] Laboratory - Chemistry and C hemistry - challengeOrdered By: Dr. Blevins on 12-08-2022 CO2 [Moles/Vol] 25.0 mmol/L 21.0-32.0 [facility] Urea nitrogen/Creatinine [Mass ratio] 14.2 mg/mg - [facility] Mucus LM Ql (Urine sed)Order ed By: Dr. Blevins on 12-08-2022 Mucus Ql (Urine sed) 1+ /hpf [facility] Nitrite Test strip Ql (U)Ord ered By: Dr. Blevins on 12-08-2022 Nitrite Ql (U) Negative Negative [facility] No Panel InformationOrdered By: Dr. Blevins on 12-08-2022 Estimated GFR (MDRD) Amer 118 mL/min >60 [facility] Comment on above: GFR Calc Estimated GFR (MDRD) Non-Af Amer 98 mL/min >60 [facility] Comment on above: Non- GFR Calc Protein Test strip Ql (U)Ord ered By: Dr. Blevins on 12-08-2022 Protein Ql (U) Negative Negative [facility] Serum or plasma calcium harika urement (mass/volume)Ordered By: Dr. Blevins on 12-08-2022 Calcium [Mass/Vol] 9.5 mg/dL 8.5-10.1 [facility] Serum or plasma cholesterol in HDL measurement (mass/volume)Ordered By: Dr. Blevins on 12-08-2022 Cholesterol in HDL [Mass/Vol] 32 mg/dL >40 [facility] Comment on above: The drugs N-Acetylcy steine and Metamizole may falsely depress this assay. Reference Range HDL <40 mg/dL Low HDL Cholesterol HDL >or= 60 mg/dL High HDL Cholesterol Serum or plasma cholesterol in VLDL measurement (mass/volume)Ordered By: Dr. Blevins on 12-08-2022 Cholesterol in VLDL [Mass/Vol] 37 mg/dL 5-40 [facility] Serum or plasma creatinine m easurement (mass/volume)Ordered By: Dr. Blevins on 12-08-2022 Creatinine [Mass/Vol] 0.70 mg/dL 0.55-1.02 [facility] [place] Comment on above: The validity of the calculated GFR & GFRAA in patients over 70 years has not been determined. Clinical correlation is essential. Serum or plasma low density lipoprotein (LDL) cholesterol measurement (mass/volume)Ordered By: Dr. Blevins on 12-08-2022 Cholesterol in LDL [Mass/Vol] 136 mg/dL 0-130 [facility] Serum or plasma urea nitroge n measurement (mass/volume)Ordered By: Dr. Blevins on 12-08-2022 Urea nitrogen [Mass/Vol] 10 mg/dL 7-18 [facility] Squamous epithelial cells de tection in urine sediment by light microscopyOrdered By: Dr. Blevins on 12-08-2022 Epithelial cells.squamous LM Ql (Urine sed) 0-5 SEEN /hpf 5-10 [facility] Thin prep Papanicolaou smear with manual screeningOrdered By: Dr. Blevins on 12-08-2022 Thin prep Papanicolaou smear with manual screening 7 5-15 [facility] Urine blood detectionOrdered By: Dr. Blevins on 12-08-2022 RBC Ql (U) Negative Negative [facility] RBC Ql (U) 0 SEEN /hpf 0-5 [facility] Urine clarityOrdered By: Dr. Blevins on 12-08-2022 Clarity (U) Sl. Cloudy Clear [facility] Urine color determinationOrd ered By: Dr. Blevins on 12-08-2022 Color (U) Yellow Yellow [facility] Urine glucose detectionOrder ed By: Dr. Blevins on 12-08-2022 Glucose Ql (U) Normal mg/dl Normal [facility] Urine leukocyte esterase det ection by dipstickOrdered By: Dr. Blevins on 12-08-2022 Leukocyte esterase Test strip Ql (U) 100 /ul Negative [facility] Urine pHOrdered By: Dr. Earnest hameed on 12-08-2022 pH (U) 6.0 [pH] 5.0 - 8.0 [facility] Urine sediment bacteria coun t by microscopy (number/high power field)Ordered By: Dr. Blevins on 12-08-2022 Bacteria LM.HPF (Urine sed) [#/Area] 1 /[HPF] None Seen [facility] Urine specific gravity measu rementOrdered By: Dr. Blevins on 12-08-2022 Specific gravity (U) [Rel density] 1.020 1.002-1.030 [facility] Urobilinogen Auto test strip Ql (U)Ordered By: Dr. Blevins on 12-08-2022 Urobilinogen Ql (U) Normal mg/dl Normal [facility] [place] Culture, urineOrdered By: Dr Eloina Blevins on 09-08-2022 Bacteria identified Cx Nom (U) Mixed Gram Pos & Gram Neg Org [facility] Absolute lymphocyte countOrd ered By: Dr. Blevins on 09-06-2022 Lymphocytes Auto (Unsp spec) [#/Vol] 5.40 10*3/uL 0.83-4.51 [facility] Basophil percentageOrdered B y: Dr. Blevins on 09-06-2022 Basophil percentage 10-25 SEEN /hpf 0-5 [facility] Basophils/100 WBC (Bld) 0.6 % 0-1 [facility] Eosinophils/100 WBC (Bld) 1.8 % 0-5 [facility] Neutrophils (Bld) [#/Vol] 8.2 10*3/uL 2.0-7.7 [facility] Neutrophils/100 WBC (Bld) 55.2 % 47-70 [facility] WBC (Bld) [#/Vol] 14.9 10*3/uL 4.4-11.0 [place] Bilirubin Test strip Ql (U)O rdered By: Dr. Blevins on 09-06-2022 Bilirubin Ql (U) 1 mg/dL Negative [facility] Comment on above: COLOR OF URINE MAY A FFECT DIPSTICK RESULTS. Blood erythrocytes count (nu mber/volume)Ordered By: Dr. Blevins on 09-06-2022 RBC (Bld) [#/Vol] 5.46 10*6/uL 4.2-5.4 [place] Blood hemoglobin measurement (mass/volume)Ordered By: Dr. Blevins on 09-06-2022 Hemoglobin (Bld) [Mass/Vol] 16.1 g/dL 12.0-15.0 [facility] Blood lymphocytes/100 leukoc ytesOrdered By: Dr. Blevins on 09-06-2022 Lymphocytes/100 WBC (Bld) 36.2 % 19-41 [facility] Blood manual differential co mment interpretation (narrative result)Ordered By: Dr. Blevins on 09-06-2022 Manual differential comment [place] (Bld) [Interp] See comment [facility] Comment on above: LYMPHOCYTOSIS NOTED Blood monocytes/100 leukocyt esOrdered By: Dr. Blevins on 09-06-2022 Monocytes/100 WBC (Bld) 5.9 % 0-10 [facility] Blood platelet adequacy dete ction by light microscopyOrdered By: Dr. Blevins on 09-06-2022 Platelets LM Ql (Bld) ADEQUATE ADEQ [facility] [place] Blood platelet mean volumeOr dered By: Dr. Blevins on 09-06-2022 Platelet mean volume (Bld) [Entitic vol] 11.1 fL 6.2-12.0 [facility] Determination of erythrocyte mean corpuscular volume (MCV)Ordered By: Dr. Blevins on 09-06-2022 MCV (RBC) [Entitic vol] 89.7 fL 81-99 [facility] Hematocrit Auto (Bld) [Volum e fraction]Ordered By: Dr. Blevins on 09-06-2022 Hematocrit (Bld) [Volume fraction] 49.0 % 37-47 [facility] Ketones Test strip Ql (U)Ord ered By: Dr. Blevins on 09-06-2022 Ketones Ql (U) 15 mg/dl Negative [facility] Laboratory - Hematology and Cell countsOrdered By: Dr. Blevins on 09-06-2022 Erythrocyte distribution width (RBC) [Entitic vol] 43.5 fL 35.1-43.9 [facility] Erythrocyte distribution width (RBC) [Ratio] 13.2 % 11.6-14.6 [facility] Immature granulocytes/100 WBC (Bld) 0.300 % 0.0-0.9 [facility] Comment on above: IG% - Immature Granu locytes (promyelocytes, myelocytes and metamyelocytes) > 1% indicates that a LEFT SHIFT is Present. MCH (RBC) [Entitic mass] 29.5 pg 27.0-32.0 [facility] Nucleated RBC/100 WBC (Bld) [Ratio] 0 % 0-5 [facility] MCHC Auto (RBC) [Mass/Vol]Or dered By: Dr. Blevins on 09-06-2022 MCHC (RBC) [Mass/Vol] 32.9 g/dL 32-36 [facility] [place] Mucus LM Ql (Urine sed)Order ed By: Dr. Blevins on 09-06-2022 Mucus Ql (Urine sed) 0 SEEN /hpf [facility] [place] Nitrite Test strip Ql (U)Ord ered By: Dr. Blevins on 09-06-2022 Nitrite Ql (U) Negative Negative [facility] Platelets bldOrdered By: Dr. Blevins on 09-06-2022 Platelets (Bld) [#/Vol] 414 10*3/uL 150-450 [facility] Protein Test strip Ql (U)Ord ered By: Dr. Blevins on 09-06-2022 Protein Ql (U) 30 mg/dl Negative [facility] RBC morphologyOrdered By: Dr Eloina Blevins on 09-06-2022 RBC morphology finding Nom (Bld) NORM C+C NORMAL NORM C&C [facility] Squamous epithelial cells de tection in urine sediment by light microscopyOrdered By: Dr. Blevins on 09-06-2022 Epithelial cells.squamous LM Ql (Urine sed) 0-5 SEEN /hpf 5-10 [facility] Urine blood detectionOrdered By: Dr. Blevins on 09-06-2022 RBC Ql (U) 10 /ul Negative [facility] RBC Ql (U) 0 SEEN /hpf 0-5 [facility] Urine clarityOrdered By: Dr. Blevins on 09-06-2022 Clarity (U) Clear Clear [facility] Urine color determinationOrd ered By: Dr. Blevins on 09-06-2022 Color (U) Yellow Yellow [facility] Urine glucose detectionOrder ed By: Dr. Blevins on 09-06-2022 Glucose Ql (U) Normal mg/dl Normal [facility] Urine leukocyte esterase det ection by dipstickOrdered By: Dr. Blevins on 09-06-2022 Leukocyte esterase Test strip Ql (U) 500 /ul Negative [facility] Urine pHOrdered By: Dr. Earnest hameed on 09-06-2022 pH (U) 5.0 [pH] 5.0 - 8.0 [facility] Urine sediment bacteria coun t by microscopy (number/high power field)Ordered By: Dr. Blevins on 09-06-2022 Bacteria LM.HPF (Urine sed) [#/Area] 1 /[HPF] None Seen [facility] Urine sediment uric acid cry stal count by microscopy (number/high power field)Ordered By: Dr. Blevins on 09-06-2022 Urate crystals LM.HPF (Urine sed) [#/Area] 2 /[HPF] [facility] Urine specific gravity measu rementOrdered By: Dr. Blevins on 09-06-2022 Specific gravity (U) [Rel density] 1.030 1.002-1.030 [facility] Urobilinogen Auto test strip Ql (U)Ordered By: Dr. Blevins on 09-06-2022 Urobilinogen Ql (U) 4 mg/dl Normal [place] CNOVon 02-04-2019 CNOV Office Visit ([facility]WSTR) GUILLERMINA SERNA ([id number]) 1980 F Date Time Provider Department 02/04/19 2:15 PM MK [facility]) [facility] During your visit today, we recorded the following information about you: Temperature Pulse Respiration Blood pressure 98.7 degrees 98/minute 16/minute 124/84 Weight 87.8 kg Mk CliffordALDO 02/04/2019 2:50 PM Signed This note was created using [employer]. Subjective Guillermina Serna is a 38 year old female. Urine was darker, now has turned more yellow/clear. The history is provided by the patient. UTI This is a new problem. The problem has not changed since onset.The patient is experiencing no pain. There has been no fever. There is no history of pyelonephritis. Associated symptoms include frequency and urgency. Pertinent negatives include no chills, no sweats, no nausea, no vomiting, no hematuria, no possible and no flank pain. She has tried increased fluids for the symptoms. Her past medical history is significant for recurrent UTIs. Her past medical history does not include kidney stones. Review of Systems Constitutional: Negative for chills and fever. Gastrointestinal: Negative for nausea and vomiting. Genitourinary: Positive for decreased urine volume, dysuria, frequency and urgency. Negative for difficulty urinating, flank pain and hematuria. Musculoskeletal: Positive for back pain. Allergic/Immunologic : Negative for immunocompromised state. History reviewed. No pertinent past medical history. ALLERGIES Patient has no known allergies. MEDICATIONS No prescriptions on file. History reviewed. No pertinent family history. Social History Tobacco Use - Smoking status: Current Every Day Smoker - Smokeless tobacco: Never Used Substance Use Topics - Alcohol use: Not on file - Drug use: Not on file Objective BP 124/84 Pulse 98 Temp 37.1 ?C (98.7 ?F) (Tympanic) Resp 16 Wt 87.8 kg (193 lb 9.6 oz) Physical Exam Constitutional: She is oriented to person, place, and time. She appears well-developed and well-nourished. Cardiovascular: Normal rate, regular rhythm and normal heart sounds. Pulmonary/Chest: Effort normal and breath sounds normal. Abdominal: Soft. Bowel sounds are normal. There is no tenderness. There is no CVA tenderness. Musculoskeletal: Thoracic back: She exhibits no tenderness and no bony tenderness. Back: Neurological: She is alert and oriented to person, place, and time. Skin: Skin is warm and dry. Nursing note and vitals reviewed. Assessment and Plan 1. Acute cystitis with hematuria UA with trace leukocytes and blood. Start macrobid, will call with culture results and further advise. Increase fluids. If no improvement in 2-3 days, new/worsening, return or see PCP for further evaluation. All questions answered, verbalized understanding. - UA DIP, URINE (POC) - URINE CULTURE - nitrofurantoin monohydrate and macrocrystal (MACROBID) 100 mg capsule; Take 1 capsule by mouth twice daily for 5 days. Dispense: 10 capsule; Refill: 0 Mk Horton APRN.CNP 02/04/2019 2:34 PM Signed [facility] PATIENT INFO BLADDER INFECTION OVERVIEW Bladder infections are one of the most common infections, causing symptoms of burning with urination and needing to urinate frequently. A bladder infection is a type of urinary tract infection (UTI). Bladder infections are more common is women than men. Most women have an uncomplicated bladder infection that is easily treated with a short course of antibiotics. In men, bladder infections may also affect the prostate gland, and a longer course of treatment may be needed. BLADDER INFECTION CAUSES The urinary tract includes the kidneys (which filter urine), ureters (the tube that carries urine from the kidneys to the bladder), the bladder (which stores urine), and urethra (the tube that carries urine out of the bladder). Bacteria do not normally live in these areas. However, bacteria normally live close to the urethra in women and men who are not circumcised. Bladder infections occur when bacteria travel up the urethra into the bladder. Factors that increase the risk of developing a bladder infection include: ? Vaginal sex ? Use of spermicides ? History of past bladder infections ? Diabetes In men, not being circumcised or having anal sex increase the risk of bladder infections. BLADDER INFECTION SYMPTOMS The typical symptoms of a bladder infection include: ? Pain or burning when urinating ? Frequent need to urinate ? Urgent need to urinate ? Blood in the urine Fever, back pain, nausea, or vomiting are not common symptoms of a bladder infection, but can occur in people with a kidney infection (pyelonephritis). If you have these symptoms, you should call your doctor or nurse immediately. Is it a bladder infection or something else? ? Burning with urination can also occur in people with vaginitis (eg, yeast infection) or urethritis (inflammation of the urethra). For this reason, it is important to call your healthcare provider before assuming you have a bladder infection. BLADDER INFECTION DIAGNOSIS Simple bladder infections are usually diagnosed based upon your symptoms alone. However, most patients, especially those who have bladder infection symptoms for the first time, should see a healthcare provider for urine testing. Urine culture ? A urine culture is a test that uses a sample of urine to try and grow bacteria in a laboratory. It usually requires about 48 hours to get results. However, a urine culture is not always required to diagnose a bladder infection. Urine culture is often recommended if: ? You have never had a bladder infection before ? You have symptoms that are not typical for bladder infection ? You have had resistant bladder infections before ? You have frequent bladder infections ? You do not begin to feel better within 24 to 48 hours after starting antibiotics ? You are BLADDER INFECTION TREATMENT Bladder infection ? In young, healthy adolescents and adults with a bladder infection, the usual treatment includes a three to seven day course of antibiotics. The typical drugs chosen are: trimethoprim-sulfame thoxazole (Bactrim?), nitrofurantoin (Macrobid?), ciprofloxacin (Cipro?) or levofloxacin (Levaquin?). In men, the infection may involve your prostate gland and treatment is usually given for at least 7 days. Your symptoms should begin to resolve within one day after starting treatment. It is important to take the full course of antibiotics to completely eliminate the infection. If your symptoms persist for more than two or three days after starting treatment, call your healthcare provider. If needed, you can take a prescription medication that numbs the bladder and urethra (phenazopyridine [Pyridium?]) to reduce the burning pain of some UTIs. A similar medication is available without a prescription (eg, Uristat). Both medications change the color of the urine (usually blue or orange) and can interfere with laboratory testing. You should not take these medications for more than 48 hours due to the risk of side effects. These medications do not treat the infection and must be taken along with an antibiotic. Some providers recommend drinking more fluids while treating bladder infections to help flush bacteria from the bladder. Others believe that drinking more fluids may dilute the antibiotic in the bladder and make the medication less effective. No studies have been performed to address this issue. There are also no good studies on the effectiveness of cranberry juice for treating a bladder infection; we do not recommend using cranberry juice to treat bladder infections. Follow-up care ? Follow-up testing is not needed in healthy, young men or women with a bladder infection if symptoms resolve. women are usually asked to have a repeat urine culture one to two weeks after treatment has ended to make sure the bacteria are no longer in the urine. RECURRENT BLADDER INFECTIONS Bladder infections versus other causes ? Some adults, especially women, develop bladder infections frequently. In this case, it is important to confirm that your symptoms (eg, pain or burning, frequency, and urgency) are caused by a bladder infection. Symptoms are usually similar from one infection to another. The best way to confirm an infection is to have a urine culture. If your urine culture is negative for infection, other causes of pain, burning, and frequency should be investigated. There is no reason to take antibiotics if your urine culture is negative. Need for further testing ? If you continue to develop bladder infections, you may require further testing. If you continue to notice blood in your urine after your bladder infection has cleared, you should have further testing. Preventing recurrent UTIs ? Women with recurrent urinary tract infections may be advised to take steps to prevent bladder infections, including one or more of the following: Changes in control ? Women who develop frequent bladder infections and use spermicides, particularly those who also use a diaphragm, may be encouraged to use an alternate method of control. Cranberry products ? Taking cranberry juice or cranberry tablets has been promoted as one way to help prevent frequent bladder infections. However, this has not been proven. Drinking more fluid and urinating after intercourse ? Although studies have not proven that drinking more fluids or urinating soon after intercourse can prevent infection, some healthcare providers recommend these measures since they are not harmful. Drinking more fluid may help to wash out bacteria that enter the bladder. Postmenopausal women ? Postmenopausal women who develop recurrent bladder infections may benefit from using vaginal estrogen. Vaginal estrogen is available in a flexible ring that is worn in the vagina for three months (eg, Estring?), a small tablet (Vagifem?), or a cream (eg, Premarin? or Estrace?). Vaginal estrogen is discussed in more detail in a separate topic review. Antibiotics ? A preventive antibiotic treatment may be recommended if you repeatedly develop bladder infections and have not responded to other preventive measures. Antibiotics are highly effective in preventing recurrent bladder infections and can be taken in several different ways. ? Preventive antibiotic ? You can take a low dose of an antibiotic once per day or three times per week for six months to several years. ? Antibiotics following intercourse ? In women who develop urinary tract infections after sex, taking a single low dose antibiotic after intercourse can help to prevent bladder infections. ? Self-treatment ? A plan to begin antibiotics at the first sign of a bladder infection may be recommended in some situations. Before starting this regimen, it is important that you have had testing (urine cultures) to confirm that your symptoms are caused by a bladder infection; some people have symptoms of a bladder infection but do not actually have an infection. Referring Provider: SELF [[id number]] Allergies As of Date: 02/04/2019 (No Known Allergies) Date Reviewed: 02/04/2019 Reviewed by: Mk ([facility]) Clifford - Fully Assessed Reason for Visit: UTI [116] Cmt: lower back pain x 3 days Primary Visit Diagnosis:Acute cystitis with hematuria [N30.01] Order(s):UA DIP, URINE (POC) [1043853] Order #: [id number]. #:[id number] URINE CULTURE [SQURCUL] Order #: [id number] nitrofurantoin monohydrate and macrocrystal (MACROBID) 100 mg capsuleTake 1 capsule by mouth twice daily for 5 days.Disp: 10 capsuleRfl: 0 Prescriptions as of 02/04/2019 Sig: NITROFURANTOIN MONOHYDRATE AND * Take 1 capsule by mouth twice* Problem List As Of Date: 02/04/2019 (None) Other instructions from your clinician: [facility] PATIENT INFO BLADDER INFECTION OVERVIEW Bladder infections are one of the most common infections, causing symptoms of burning with urination and needing to urinate frequently. A bladder infection is a type of urinary tract infection (UTI). Bladder infections are more common is women than men. Most women have an uncomplicated bladder infection that is easily treated with a short course of antibiotics. In men, bladder infections may also affect the prostate gland, and a longer course of treatment may be needed. BLADDER INFECTION CAUSES The urinary tract includes the kidneys (which filter urine), ureters (the tube that carries urine from the kidneys to the bladder), the bladder (which stores urine), and urethra (the tube that carries urine out of the bladder). Bacteria do not normally live in these areas. However, bacteria normally live close to the urethra in women and men who are not circumcised. Bladder infections occur when bacteria travel up the urethra into the bladder. Factors that increase the risk of developing a bladder infection include: ? Vaginal sex ? Use of spermicides ? History of past bladder infections ? Diabetes In men, not being circumcised or having anal sex increase the risk of bladder infections. BLADDER INFECTION SYMPTOMS The typical symptoms of a bladder infection include: ? Pain or burning when urinating ? Frequent need to urinate ? Urgent need to urinate ? Blood in the urine Fever, back pain, nausea, or vomiting are not common symptoms of a bladder infection, but can occur in people with a kidney infection (pyelonephritis). If you have these symptoms, you should call your doctor or nurse immediately. Is it a bladder infection or something else? ? Burning with urination can also occur in people with vaginitis (eg, yeast infection) or urethritis (inflammation of the urethra). For this reason, it is important to call your healthcare provider before assuming you have a bladder infection. BLADDER INFECTION DIAGNOSIS Simple bladder infections are usually diagnosed based upon your symptoms alone. However, most patients, especially those who have bladder infection symptoms for the first time, should see a healthcare provider for urine testing. Urine culture ? A urine culture is a test that uses a sample of urine to try and grow bacteria in a laboratory. It usually requires about 48 hours to get results. However, a urine culture is not always required to diagnose a bladder infection. Urine culture is often recommended if: ? You have never had a bladder infection before ? You have symptoms that are not typical for bladder infection ? You have had resistant bladder infections before ? You have frequent bladder infections ? You do not begin to feel better within 24 to 48 hours after starting antibiotics ? You are BLADDER INFECTION TREATMENT Bladder infection ? In young, healthy adolescents and adults with a bladder infection, the usual treatment includes a three to seven day course of antibiotics. The typical drugs chosen are: trimethoprim-sulfame thoxazole (Bactrim?), nitrofurantoin (Macrobid?), ciprofloxacin (Cipro?) or levofloxacin (Levaquin?). In men, the infection may involve your prostate gland and treatment is usually given for at least 7 days. Your symptoms should begin to resolve within one day after starting treatment. It is important to take the full course of antibiotics to completely eliminate the infection. If your symptoms persist for more than two or three days after starting treatment, call your healthcare provider. If needed, you can take a prescription medication that numbs the bladder and urethra (phenazopyridine [Pyridium?]) to reduce the burning pain of some UTIs. A similar medication is available without a prescription (eg, Uristat). Both medications change the color of the urine (usually blue or orange) and can interfere with laboratory testing. You should not take these medications for more than 48 hours due to the risk of side effects. These medications do not treat the infection and must be taken along with an antibiotic. Some providers recommend drinking more fluids while treating bladder infections to help flush bacteria from the bladder. Others believe that drinking more fluids may dilute the antibiotic in the bladder and make the medication less effective. No studies have been performed to address this issue. There are also no good studies on the effectiveness of cranberry juice for treating a bladder infection; we do not recommend using cranberry juice to treat bladder infections. Follow-up care ? Follow-up testing is not needed in healthy, young men or women with a bladder infection if symptoms resolve. women are usually asked to have a repeat urine culture one to two weeks after treatment has ended to make sure the bacteria are no longer in the urine. RECURRENT BLADDER INFECTIONS Bladder infections versus other causes ? Some adults, especially women, develop bladder infections frequently. In this case, it is important to confirm that your symptoms (eg, pain or burning, frequency, and urgency) are caused by a bladder infection. Symptoms are usually similar from one infection to another. The best way to confirm an infection is to have a urine culture. If your urine culture is negative for infection, other causes of pain, burning, and frequency should be investigated. There is no reason to take antibiotics if your urine culture is negative. Need for further testing ? If you continue to develop bladder infections, you may require further testing. If you continue to notice blood in your urine after your bladder infection has cleared, you should have further testing. Preventing recurrent UTIs ? Women with recurrent urinary tract infections may be advised to take steps to prevent bladder infections, including one or more of the following: Changes in control ? Women who develop frequent bladder infections and use spermicides, particularly those who also use a diaphragm, may be encouraged to use an alternate method of control. Cranberry products ? Taking cranberry juice or cranberry tablets has been promoted as one way to help prevent frequent bladder infections. However, this has not been proven. Drinking more fluid and urinating after intercourse ? Although studies have not proven that drinking more fluids or urinating soon after intercourse can prevent infection, some healthcare providers recommend these measures since they are not harmful. Drinking more fluid may help to wash out bacteria that enter the bladder. Postmenopausal women ? Postmenopausal women who develop recurrent bladder infections may benefit from using vaginal estrogen. Vaginal estrogen is available in a flexible ring that is worn in the vagina for three months (eg, Estring?), a small tablet (Vagifem?), or a cream (eg, Premarin? or Estrace?). Vaginal estrogen is discussed in more detail in a separate topic review. Antibiotics ? A preventive antibiotic treatment may be recommended if you repeatedly develop bladder infections and have not responded to other preventive measures. Antibiotics are highly effective in preventing recurrent bladder infections and can be taken in several different ways. ? Preventive antibiotic ? You can take a low dose of an antibiotic once per day or three times per week for six months to several years. ? Antibiotics following intercourse ? In women who develop urinary tract infections after sex, taking a single low dose antibiotic after intercourse can help to prevent bladder infections. ? Self-treatment ? A plan to begin antibiotics at the first sign of a bladder infection may be recommended in some situations. Before starting this regimen, it is important that you have had testing (urine cultures) to confirm that your symptoms are caused by a bladder infection; some people have symptoms of a bladder infection but do not actually have an infection. Prescriptions ordered this encounter Disp Refills Start End NITROFURANTOIN MONOHYDRATE AND MACROCR* 10 c* 0 02/04/2019 02/09/2019 Route: ORAL Sig: Take 1 capsule by mouth twice daily for 5 days. Encounter Status:Closed by CLIFFORD MAIER.MK FORD on 02/04/19 Normal [facility] PROGRESSon 02-04-2019 Protein mass conc HNO ID: [id number] Author: Mk Brown) Clifford Service: ? Author Type: Nurse Practitioner Type: Progress Notes Filed: 02/04/2019 2:50 PM Note Text: This note was created using [employer]. Subjective Guillermina Serna is a 38 year old female. Urine was darker, now has turned more yellow/clear. The history is provided by the patient. UTI This is a new problem. The problem has not changed since onset.The patient is experiencing no pain. There has been no fever. There is no history of pyelonephritis. Associated symptoms include frequency and urgency. Pertinent negatives include no chills, no sweats, no nausea, no vomiting, no hematuria, no possible and no flank pain. She has tried increased fluids for the symptoms. Her past medical history is significant for recurrent UTIs. Her past medical history does not include kidney stones. Review of Systems Constitutional: Negative for chills and fever. Gastrointestinal: Negative for nausea and vomiting. Genitourinary: Positive for decreased urine volume, dysuria, frequency and urgency. Negative for difficulty urinating, flank pain and hematuria. Musculoskeletal: Positive for back pain. Allergic/Immunologic : Negative for immunocompromised state. History reviewed. No pertinent past medical history. ALLERGIES Patient has no known allergies. MEDICATIONS No prescriptions on file. History reviewed. No pertinent family history. Social History Tobacco Use - Smoking status: Current Every Day Smoker - Smokeless tobacco: Never Used Substance Use Topics - Alcohol use: Not on file - Drug use: Not on file Objective BP 124/84 Pulse 98 Temp 37.1 ?C (98.7 ?F) (Tympanic) Resp 16 Wt 87.8 kg (193 lb 9.6 oz) Physical Exam Constitutional: She is oriented to person, place, and time. She appears well-developed and well-nourished. Cardiovascular: Normal rate, regular rhythm and normal heart sounds. Pulmonary/Chest: Effort normal and breath sounds normal. Abdominal: Soft. Bowel sounds are normal. There is no tenderness. There is no CVA tenderness. Musculoskeletal: Thoracic back: She exhibits no tenderness and no bony tenderness. Back: Neurological: She is alert and oriented to person, place, and time. Skin: Skin is warm and dry. Nursing note and vitals reviewed. Assessment and Plan 1. Acute cystitis with hematuria UA with trace leukocytes and blood. Start macrobid, will call with culture results and further advise. Increase fluids. If no improvement in 2-3 days, new/worsening, return or see PCP for further evaluation. All questions answered, verbalized understanding. - UA DIP, URINE (POC) - URINE CULTURE - nitrofurantoin monohydrate and macrocrystal (MACROBID) 100 mg capsule; Take 1 capsule by mouth twice daily for 5 days. Dispense: 10 capsule; Refill: 0 Normal [facility] Urine Cultureon 02-04-2019 Bacteria identified Cx Nom (U) Sp. Request/Comment: - Specimen received in preservative Culture Result - >=100,000 CFU/ml Escherichia coli --> ABNORMAL ALERT ORGANISM: Escherichia coli METHOD: Minimum inhibitory concentration(Vitek) Antibiotic Interp VALENTINA Status Ampicillin RESISTANT >=32 F Gentamicin SUSCEPTIBLE <=1 F Trimeth sulfameth SUSCEPTIBLE <=20 F Cefazolin SUSCEPTIBLE <=4 F CLSI breakpoints for therapy of uncomplicated UTI's due to E.coli, K.pneumoniae, and P.mirabilis were applied and may be used to predict the activity of oral agents(cefaclor, cefdinir, cefpodoxime, cefprozil, cefuroxime, cephalexin, loracarbef). Ciprofloxacin SUSCEPTIBLE <=0.25 F Nitrofurantoin SUSCEPTIBLE <=16 F Cefepime SUSCEPTIBLE <=1 F Piperacillin/Tazobac SUSCEPTIBLE <=4 F Ampicillin Sulbact INTERMEDIATE 16 F Ceftriaxone SUSCEPTIBLE <=1 F Meropenem SUSCEPTIBLE <=0.25 F Ertapenem SUSCEPTIBLE <=0.5 F Critically abnormal [facility] Comment on above: Performed By: #### U RCUL #### [facility] [address] [place] [address] Vital Signs Date Time Vital Sign Value Performing Clinician Malik sethi 04-07-2025 14:43-0400 Body height 167.[address] Yoon Blevins MD Work Phone: [facility] 04-07-2025 14:43-0400 Body mass index (BMI) [Ratio] 37.3 kg/m2 Dr. Yoon Blevins MD Work Phone: [facility] 04-07-2025 14:43-0400 Body temperature 98.3 [degF] Dr. Yoon Blevins MD Work Phone: [facility] 04-07-2025 14:43-0400 Body weight 104.[address] Yoon Blevins MD Work Phone: [facility] 04-07-2025 14:43-0400 Diastolic blood pressure 82 mm[Hg] Dr. Yoon Blevins MD Work Phone: [facility] 04-07-2025 14:43-0400 Heart rate 108 /min Dr. Yoon Blevins MD Work Phone: [facility] 04-07-2025 14:43-0400 Respiratory rate 17 /min Dr. Yoon Blevins MD Work Phone: [facility] 04-07-2025 14:43-0400 SaO2% (BldA) [Mass fraction] 98 % Dr. Yoon Blevins MD Work Phone: [facility] 04-07-2025 14:43-0400 Systolic blood pressure 154 mm[Hg] Dr. Yoon Blevins MD Work Phone: [facility] 04-04-2025 19:38-0400 Body temperature 98.2 [degF] Dr. Yoon Blevins MD Work Phone: [facility] 04-04-2025 19:38-0400 Diastolic blood pressure 80 mm[Hg] Dr. Yoon Blevins MD Work Phone: [facility] 04-04-2025 19:38-0400 Heart rate 91 /min Dr. Yoon Blevins MD Work Phone: [facility] 04-04-2025 19:38-0400 Respiratory rate 20 /min Dr. Yoon Blevins MD Work Phone: [facility] 04-04-2025 19:38-0400 SaO2% (BldA) [Mass fraction] 98 % Dr. Yoon Blevins MD Work Phone: [facility] 04-04-2025 19:38-0400 Systolic blood pressure 113 mm[Hg] Dr. Yoon Blevins MD Work Phone: [facility] 04-04-2025 14:06-0400 Body mass index (BMI) [Ratio] 36.6 kg/m2 Dr. Yoon Blevins MD Work Phone: [facility] 04-04-2025 14:06-0400 Body weight 103.[address] Yoon Blevins MD Work Phone: [facility] 04-04-2025 14:03-0400 Body height 167.[address] Yoon Blevins MD Work Phone: [facility] 02-20-2025 14:29-0400 Body height 167.[address] Yoon Blevins MD Work Phone: [facility] 02-20-2025 14:29-0400 Body mass index (BMI) [Ratio] 37.5 kg/m2 Dr. Yoon Blevins MD Work Phone: [facility] 02-20-2025 14:29-0400 Body temperature 97.8 [degF] Dr. Yoon Blevins MD Work Phone: [facility] 02-20-2025 14:29-0400 Body weight 105.[address] Yoon Blevins MD Work Phone: [facility] 02-20-2025 14:29-0400 Diastolic blood pressure 68 mm[Hg] Dr. Yoon Blevins MD Work Phone: [facility] Rehabilitation 02-20-2025 14:29-0400 Heart rate 90 /min Dr. Yoon Blevins MD Work Phone: [facility] 02-20-2025 14:29-0400 Respiratory rate 18 /min Dr. Yoon Blevins MD Work Phone: [facility] 02-20-2025 14:29-0400 SaO2% (BldA) [Mass fraction] 98 % Dr. Yoon Blevins MD Work Phone: [facility] 02-20-2025 14:29-0400 Systolic blood pressure 120 mm[Hg] Dr. Yoon Blevins MD Work Phone: [facility] 11-14-2024 14:21-0500 Body mass index (BMI) [Ratio] 36.6 kg/m2 Dr. Yoon Blevins MD Work Phone: [facility] 11-14-2024 14:21-0500 Body temperature 97.6 [degF] Dr. Yoon Blevins MD Work Phone: [facility] 11-14-2024 14:21-0500 Body weight 102.[address] Yoon Blevins MD Work Phone: [facility] 11-14-2024 14:21-0500 Diastolic blood pressure 86 mm[Hg] Dr. Yoon Blevins MD Work Phone: [facility] 11-14-2024 14:21-0500 Heart rate 118 /min Dr. Yoon Blevins MD Work Phone: [facility] 11-14-2024 14:21-0500 Respiratory rate 16 /min Dr. Yoon Blevins MD Work Phone: [facility] 11-14-2024 14:21-0500 SaO2% (BldA) [Mass fraction] 97 % Dr. Yoon Blevins MD Work Phone: [facility] 11-14-2024 14:21-0500 Systolic blood pressure 140 mm[Hg] Dr. Yoon Blevins MD Work Phone: [facility] 02-16-2024 20:30-0400 Body temperature 98.2 [degF] Dr. Yoon Blevins Work Phone: [facility] 02-16-2024 20:30-0400 Diastolic blood pressure 89 mm[Hg] Dr. Yoon Blevins Work Phone: [facility] 02-16-2024 20:30-0400 Heart rate 96 /min Dr. Yoon Blevins Work Phone: [facility] 02-16-2024 20:30-0400 Respiratory rate 18 /min Dr. Yoon Blevins Work Phone: [facility] 02-16-2024 20:30-0400 SaO2% (BldA) [Mass fraction] 97 % Dr. Yoon Blevins Work Phone: [facility] 02-16-2024 20:30-0400 Systolic blood pressure 131 mm[Hg] Dr. Yoon Blevins Work Phone: [facility] 02-16-2024 18:07-0400 Body height 167.[address] Yoon Blevins Work Phone: [facility] 02-16-2024 18:07-0400 Body mass index (BMI) [Ratio] 24.9 kg/m2 Dr. Yoon Blevins Work Phone: [facility] 02-16-2024 18:07-0400 Body weight [address] Yoon Blevins Work Phone: [facility] 12-14-2023 14:58-0500 Body height 167.[address] Yoon Blevins Work Phone: [facility] 12-14-2023 14:58-0500 Body mass index (BMI) [Ratio] 31.8 kg/m2 Dr. Yoon Blevins Work Phone: [facility] 12-14-2023 14:58-0500 Body temperature 97.8 [degF] Dr. Yoon Blevins Work Phone: [facility] 12-14-2023 14:58-0500 Body weight 89.[address] Yoon Blevins Work Phone: [facility] 12-14-2023 14:58-0500 Diastolic blood pressure 76 mm[Hg] Dr. Yoon Blevins Work Phone: [facility] 12-14-2023 14:58-0500 Heart rate 103 /min Dr. Yoon Blevins Work Phone: [facility] 12-14-2023 14:58-0500 Respiratory rate 16 /min Dr. Yoon Blevins Work Phone: [facility] 12-14-2023 14:58-0500 SaO2% (BldA) [Mass fraction] 99 % Dr. Yoon Blevins Work Phone: [facility] 12-14-2023 14:58-0500 Systolic blood pressure 126 mm[Hg] Dr. Yoon Blevins Work Phone: [facility] 09-07-2023 14:47-0400 Body mass index (BMI) [Ratio] 0.3 kg/m2 Dr. Yoon Blevins Work Phone: [facility] 09-07-2023 14:47-0400 Body temperature 98.3 [degF] Dr. Yoon Blevins Work Phone: [facility] 09-07-2023 14:47-0400 Body weight 88.[address] Yoon Blevins Work Phone: [facility] 09-07-2023 14:47-0400 Diastolic blood pressure 80 mm[Hg] Dr. Yoon Blevins Work Phone: [facility] 09-07-2023 14:47-0400 Heart rate 80 /min Dr. Yoon Blevins Work Phone: [facility] 09-07-2023 14:47-0400 Respiratory rate 16 /min Dr. Yoon Blevins Work Phone: [facility] 09-07-2023 14:47-0400 SaO2% (BldA) [Mass fraction] 98 % Dr. Yoon Blevins Work Phone: [facility] 09-07-2023 14:47-0400 Systolic blood pressure 140 mm[Hg] Dr. Yoon Blevins Work Phone: [facility] 06-01-2023 14:47-0400 Body height 167.[address] Yoon Blevins Work Phone: [facility] 06-01-2023 14:47-0400 Body mass index (BMI) [Ratio] 31.9 kg/m2 Dr. Yoon Blevins Work Phone: [facility] 06-01-2023 14:47-0400 Body temperature 95.9 [degF] Dr. Yoon Blevins Work Phone: [facility] 06-01-2023 14:47-0400 Body weight 89.[address] Yoon Blevins Work Phone: [facility] 06-01-2023 14:47-0400 Diastolic blood pressure 76 mm[Hg] Dr. Yoon Blevins Work Phone: [facility] 06-01-2023 14:47-0400 Heart rate 78 /min Dr. Yoon Blevins Work Phone: [facility] 06-01-2023 14:47-0400 Respiratory rate 18 /min Dr. Yoon Blevins Work Phone: [facility] 06-01-2023 14:47-0400 SaO2% (BldA) [Mass fraction] 97 % Dr. Yoon Blevins Work Phone: [facility] 06-01-2023 14:47-0400 Systolic blood pressure 126 mm[Hg] Dr. Yoon Blevins Work Phone: [facility] 12-08-2022 09:09-0500 Body height 167.[address] Yoon Blevins Work Phone: [facility] 12-08-2022 09:09-0500 Body mass index (BMI) [Ratio] 30.9 kg/m2 Dr. Yoon Blevins Work Phone: [facility] 12-08-2022 09:09-0500 Body temperature 98.2 [degF] Dr. Yoon Blevins Work Phone: [facility] 12-08-2022 09:09-0500 Body weight 87.[address] Yoon Blevins Work Phone: [facility] 12-08-2022 09:09-0500 Diastolic blood pressure 80 mm[Hg] Dr. Yoon Blevins Work Phone: [facility] 12-08-2022 09:09-0500 Heart rate 82 /min Dr. Yoon Blevins Work Phone: [facility] 12-08-2022 09:09-0500 Respiratory rate 16 /min Dr. Yoon Blevins Work Phone: [facility] 12-08-2022 09:09-0500 SaO2% (BldA) [Mass fraction] 98 % Dr. Yoon Blevins Work Phone: [facility] 12-08-2022 09:09-0500 Systolic blood pressure 124 mm[Hg] Dr. Yoon Blevins Work Phone: [facility] 09-06-2022 09:15-0400 Body mass index (BMI) [Ratio] 31.6 kg/m2 Dr. Yoon Blevins Work Phone: [facility] 09-06-2022 09:15-0400 Body temperature 98 [degF] Dr. Yoon Blevins Work Phone: [facility] 09-06-2022 09:15-0400 Body weight 88.[address] Yoon Blevins Work Phone: [facility] 09-06-2022 09:15-0400 Diastolic blood pressure 88 mm[Hg] Dr. Yoon Blevins Work Phone: [facility] 09-06-2022 09:15-0400 Heart rate 94 /min Dr. Yoon Blevins Work Phone: [facility] 09-06-2022 09:15-0400 Respiratory rate 16 /min Dr. Yoon Blevins Work Phone: [facility] 09-06-2022 09:15-0400 SaO2% (BldA) [Mass fraction] 99 % Dr. Yoon Blevins Work Phone: [facility] 09-06-2022 09:15-0400 Systolic blood pressure 124 mm[Hg] Dr. Yoon Blevins Work Phone: [facility] Encounters Encounter Date Encounter Type Care Provider Facility Start: 04-07-2025 End: 04-07-2025 Patient encounter procedure Jorge Tidwell MA -[facility] Work Phone: Start: 04-07-2025 End: 04-07-[address] Yoon Blevins MD Work Phone: [facility] Work Phone: Start: 04-07-2025 End: 04-07-2025 ambulatory Yoon Blevins Facility:[facility] Start: 04-04-2025 End: 04-04-2025 Emergency department patient visit Dr. Yoon Blevins MD Work Phone: -Emergency Department Work Phone: Start: 02-20-2025 End: 02-20-[address] Yoon Blevins MD Work Phone: [facility] Work Phone: Start: 02-20-2025 End: 02-20-[address] Yoon Blevins MD -Laboratory, [place] Start: 02-20-2025 End: 02-20-[address] Yoon Blevins MD -[facility] Work Phone: Start: 02-20-2025 End: 02-20-2025 [facility] Start: 02-20-2025 End: 02-20-2025 ambulatory [facility] Facility:[facility] Start: 11-14-2024 End: 11-14-[address] Yoon Blevins MD -[facility] Work Phone: Start: 11-14-2024 End: 11-14-[facility] Start: 08-08-2024 End: 08-08-2024 ambulatory [facility] access hospitale Facility:[facility] Start: 06-27-[address] Yoon Blevins MD Work Phone: [facility] Start: 06-27-2024 End: 06-27-2024 ambulatory [facility] hospit[facility] Facility:[facility] Start: 06-27-2024 End: 06-27-2024 [facility] Start: 04-18-2024 End: 04-18-2024 ambulatory [facility] hospitale [facility] Start: 02-16-2024 End: 02-16-2024 Emergency department patient visit Dr. Yoon Blevins Work Phone: [facility]-Emergency Department Work Phone: Start: 12-14-2023 End: 12-14-[address] Yoon Blevins Work Phone: [facility] Work Phone: Start: 12-14-2023 End: 12-14-[address] Yoon Blevins Work Phone: [facility]-Laboratory, [facility] Start: 12-14-2023 End: 12-14-[address] Yoon Blevins Work Phone: [facility] Work Phone: Start: 09-07-2023 End: 09-07-[address] Yoon Blevins Work Phone: [facility] Work Phone: Start: 06-01-2023 End: 06-01-[address] Yoon Blevins Work Phone: [facility] Work Phone: Start: 06-01-2023 End: 06-01-[address] Yoon Blevins Work Phone: [facility] Work Phone: Start: 12-08-2022 End: 12-08-[address] Yoon Blevins Work Phone: [facility] Work Phone: Start: 12-08-2022 End: 12-08-[address] Yoon Blevins Work Phone: [facility] [place], [place] Start: 12-08-2022 End: 12-08-[address] Yoon Blevins Work Phone: [facility] Start: 09-06-2022 End: 09-06-[address] Yoon Blevins Work Phone: [facility] Start: 02-04-2019 End: 02-05-2019 Patient encounter procedure [facility] Procedures Date Procedure Procedure Detail Performing Clinician Start: 04-07-[address] Martina Blevins MD Work Phone: Start: 04-04-2025 Urnls dip stick/tabl et reagent auto microscopy Dr. Yoon Blevins MD Work Phone: Start: 04-04-2025 CT of abdomen and pe lvis without contrast Dr. Yoon Blevins MD Work Phone: Start: 04-04-2025 Lymphocyte percent differential count Dr. Yoon Blevins MD Work Phone: Start: 02-16-2024 Plain chest X-ray Dr. Nilam Blevins Work Phone: Start: 02-16-2024 SARS-CoV-2, Influenz a & RSV (PCR) Dr. Yoon Blevins Work Phone: Urine culture Dr. Yoon Blevins Work Phone: Urine culture Dr. Yoon Blevins Work Phone: Plan of Treatment Date Care Activity Detail Author Start: 04-04-2025 [facility] Start: 02-16-2024 [facility] Start: 02-16-2024 [facility] Start: 06-01-2023 Patient referral [facility] Work Phone: Patient Education [facility] Work Phone: Patient referral [facility] Work Phone: [facility] Payers Date Payer Category Payer Unknown [id number] 2024 Self-pay [id number] 2024 Unknown [id number] Unknown [id number] 2.16.8 [id number] Unknown [id number] 2.16.8 [id number] Unknown [id number] 2.16.8 [id number] Unknown [id number] 2.16.8 [id number] Unknown [id number] 2.16.8 [id number] Unknown [id number] 2.16.8 [id number] Unknown [id number] 2.16.8 [id number] Unknown [id number] 2.16.8 [id number] Unknown [id number] 2.16.8 [id number] Unknown [id number] 2.16.8 [id number] Social History Date Type Detail Facility Start: 12-08-2022 End: 02-16-2024 Tobacco smoking status NHIS Unknown if ever smoked [facility] Start: 1980 Sex Assigned At Female [facility] Start: 04-18-2024 [facility] Start: 02-25-2025 Sex Female (finding) [facility] Start: 04-04-2025 [facility]finding[facility] Progress note 04-07-2025 Note Date & Type Note Facility 04-07-2025 Progress note [facility] Progress note 04-07-2025 Note Date & Type Note Facility 04-07-2025 Progress note Note Date/Time April 07, 2025 2:54p [facility] [address], [address] [place] [address] OFFICE VISIT Date of Service: 04/07/25 MR#: [id number] Acct: [id number] Name: GUILLERMINA SERNA HARRY Rep #: [id number] : 1980 Provider: ADRIANA Aguero Age/Sex: 44/F [place] [facility] Status: Signed Intake Vital Signs 04/04/25 14:03 04/07/25 14:43 Height 5 ft 6 in 5 ft 6 in Weight: 231 lb 2 oz BMI 37.3 BP 154/82 H Blood Pressure Location Lt brachial Position Sitting Respiration 17 Pulse 108 H Pulse Source NIBP Temp 98.3 F Temp Source Oral Pulse Oximetry (%) 98 Oxygen Delivery Method room air Intake Visit Reasons: CONCERN FOR UTI Chief Complaint: dysuria, left flank pain, blood in urine [employer] Work[employer] Required: No Is patient in pain?: Yes Allergies hazelnut Allergy (Intermediate, Verified 04/07/25 14:44) Food Allergy cat dander Allergy (Mild, Verified 04/07/25 14:44) Rash grass pollen Allergy (Mild, Verified 04/07/25 14:44) Rash Penicillins Allergy (Mild, Verified 04/07/25 14:44) Rash Is last menstrual period known: No Post menopausal: Yes Patient : No Have you fallen in the past year?: No Nurse's Note: dysuria, left flank pain, blood in urine x 2 days. recent ED visit--suspected passed kidney stone. concern for UTI PFSH Medical History Health care maintenance Tobacco abuse, in remission Post viral syndrome Seasonal affective disorder Screening for thyroid disorder Chronic sinusitis Burning with urination UTI (urinary tract infection) Insomnia Obesity (BMI 30.0-34.9) Nausea GERD (gastroesophageal reflux disease) Acute sinusitis Tobacco abuse Depression Bipolar 1 disorder Migraines Rheumatoid arthritis Seasonal allergies Surgical History History of rhinoplasty History of tubal ligation Family History Father Colon cancer Mother Osteoporosis Cancer brain cx Diabetes Other Arthritis Depression Social History household members: spouse number of children: 3 current occupational status: unemployed history of recent travel: No sexually active: No Smoking Status: Former smoker Tobacco: How many years used: 24 alcohol intake: never substance use type: does not use what type of physical activity do you participate in: none seatbelt use: always do you feel safe at home: Yes additional social history: - [facility] HPI Chief Complaint: dysuria, left flank pain, blood in urine Details: GUILLERMINA SERNA, is a 44 F who presents to the office today for initial evaluation at the [facility] for approximately 3-4 day history of dysuria and urinary frequency with suprapubic pressure and previous L CVA tender (no longer though). No complaints of fever, chills, sweats, lightheadedness/dizziness, nausea/vomiting, or chest pain/shortness of breath/dyspnea on exertion/back pain. No changes in color/ character of urine or stool; no urethral/ vaginal discharge. No amod-ymv-ndbbfya products taken to assist. No other associated symptoms and no alleviating/aggravating factors. ROS Const Constitutional: No other (As above) Exam Const General: cooperative, healthy appearing and no acute distress Orientation: alert, awake and oriented x3 Chest Chest palpation & inspection: normal inspection of the chest Resp Effort & Inspection: normal respiratory effort and able to speak in complete sentences Cardio Rate: regular rate Pulses: radial pulses present GI Inspection: normal to inspection Palpation: soft and tender suprapubic (Patient describes upon self-palpation) General: No CVA tenderness Skin General: no rashes or lesions noted Neuro General: patient alert, patient awake and patient oriented x3 Cognition: normal cognition Speech: speech normal Psych Appearance: grossly normal Mental Status: mental status grossly normal Mood: congruent mood Affect: normal affect Speech and Movement: speech and movement normal Attitude: cooperative Diagnoses Urinary tract infection N39.0 Assessment and Plan Assessment and Plan (1) Urinary tract infection: Status: Acute Plan: See POC results; urine sent to lab for C/S. Macrobid as prescribed today. Supportive measures as instructed today. Follow-up with PCP in 3 to 5 days should symptoms not improve, sooner should symptoms only worsen or any other concerns develop. Patient states acknowledging understanding all the above. Results POC Urinalysis Dip (Clinic) Office Urine Color Dk Yellow Last Edit by Massiel Pratt on 04/07/25 14:50 Office Urine Clarity Cloudy Last Edit by Massiel Pratt on 04/07/25 14:50 Office Urine Glucose Negative Last Edit by Massiel Pratt on 04/07/25 14:50 Office Urine Ketones Negative Last Edit by Massiel Pratt on 04/07/25 14:50 Off Ur Spec Kingsley 1.030 Last Edit by Massiel Pratt on 04/07/25 14:50 Office Urine pH 6.0 Last Edit by Massiel Pratt on 04/07/25 14:50 Office Urine Bilirubin Negative Last Edit by Massiel Pratt on 04/07/25 14: 50 Office Urine Urobilinogen Negative Last Edit by Massiel Pratt on 04/07/25 14:50 Office Urine Blood Trace Last Edit by Massiel Pratt on 04/07/25 14:50 Office Urine Blood Hemolyzed Negative Last Edit by Massiel Pratt on 14:50 Office Urine Protein 1+ Last Edit by Massiel Pratt on 04/07/25 14:50 Office Urine Nitrate Negative Last Edit by Massiel Pratt on 04/07/25 14:50 Off Ur Leukocytes Positive Last Edit by Massiel Pratt on 04/07/25 14:50 Coding Level of Care Code Off vis,new,level 3 Assessment and Plan Assessment and Plan Orders: Orders POC Urinalysis Dip (Clinic) Today R30.0 - Dysuria Culture, Urine Today R82.90 - Unspecified abnormal findings in urine Clinical Quality Measures Falls Risk Screening/Assistive Devices Have you fallen in the past year?: No 04/07/25 1457 <Electronically signed by Jorge WRIGHT> Date _ Jorge WRIGHT Cosigner Signature: Date (if applicable) CC: ~ [facility] [employer] Work Phone: Radiology Diagnostic study note 04-04-2025 Note Date & Type Note Facility 04-04-2025 Radiology Diagnostic study note [facility] Imaging Services [address] [place] [address] [id number] Abdomen/Pelvis without Cont MR#: [id number] Acct: [id number] Name: GUILLERMINA SERNA SUDHAJAVI Rep #: [id number] : 1980 F 44 From: Gladys Tristan MD PCP: Dr. Yoon Blevins MD Status: R EG ER Study:Abdomen/Pelvis without Cont Date of Exa m: 04/04/25 Exam# [id number] Ordering Dr: Александр Koenig MD EXAM: CT Abdomen and Pelvis Without Intravenous Contrast CLINICAL INDICATION: PAIN TECHNIQUE: Axial computed tomography images of the abdomen and pelvis without intravenous contrast. This CT exam was performed using one or more of the following dose reduction techniques: automated exposure control, adjustment of the mA and/or kV according to patient size, and/or use of iterative reconstruction technique. COMPARISON: No relevant prior studies available. FINDINGS: LUNG BASES: Unremarkable. No mass. No consolidation. MEDIASTINUM: Small esophageal hiatal hernia. ABDOMEN: LIVER: Hepatomegaly with fatty infiltration. GALLBLADDER AND BILE DUCTS: Unremarkable. No calcified stones. No ductal dilation. PANCREAS: Unremarkable. No ductal dilation. SPLEEN: Unremarkable. No splenomegaly. ADRENALS: Unremarkable. No mass. KIDNEYS AND URETERS: Left nephrolithiasis with mild hydronephrosis. No obstructing calculus. STOMACH AND BOWEL: Unremarkable. No obstruction. No mucosal thickening. PELVIS: APPENDIX: No findings to suggest acute appendicitis. BLADDER: Unremarkable. No stones. REPRODUCTIVE: Unremarkable as visualized. ABDOMEN and PELVIS: INTRAPERITONEAL SPACE: Unremarkable. No free air. No significant fluid collection. BONES/JOINTS: No acute fracture. No dislocation. SOFT TISSUES: Umbilical hernia containing fat. VASCULATURE: Unremarkable. No abdominal aortic aneurysm. LYMPH NODES: Unremarkable. No enlarged lymph nodes. CT/Abdomen/Pelvis without Cont IMPRESSION: 1. Left nephrolithiasis with mild hydronephrosis. No obstructing calculus. 2. Small esophageal hiatal hernia. 3. Hepatomegaly with fatty infiltration. 4. Umbilical hernia containing fat. Reading Location: [facility] CC: Dr. Александр Koenig MD; Dr. Yoon Blevins MD ~ Bill Recapitulation Clerk: Signed [facility] Evaluation note 02-20-2025 Note Date & Type Note Facility 02-20-2025 Evaluation note Diagnosis Onset Date Resolution Bipolar 1 disorder chronic February 20, 2025 2:02pm Chronic sinusitis chronic February 202024 2:02pm GERD (gastroesophageal reflux disease) chronic Kathy 4th, 2025 2:02pm Hypertension chronic Kathy 4th, 2 025 2:02pm Obesity (BMI 30.0-34.9) chronic A pril 2024 2:02pm [facility] Work Phone: Evaluation note 11-14-2024 Note Date & Type Note Facility 11-14-2024 Evaluation note Diagnosis Onset Date Resolution Chronic sinusitis chronic Decembe r 2023 2:12pm GERD (gastroesophageal reflux disease) chronic November 14, 2 024 2:12pm Hypertension chronic October 2:12pm Bipolar 1 disorder chronic February 20, 2025 2:02pm Chronic sinusitis chronic February 202024 2:02pm GERD (gastroesophageal reflux disease) chronic February 20, 2025 2:02pm Hypertension chronic February 20, 025 2:02pm Obesity (BMI 30.0-34.9) chronic A pril 2024 2:02pm [facility] Work Phone: Evaluation note Note Date & Type Note Facility Evaluation note Diagnosis Onset Date UTI (urinary tract infection) acute Hypertension chronic Burning with urination chron ic GERD (gastroesophageal reflux disease) chronic Hypertension chronic Seasonal allergies chronic [facility] Work Phone: Evaluation note Note Date & Type Note Facility Evaluation note Diagnosis Onset Date Tobacco abuse acute Chronic sinusitis chronic GERD (gastroesophageal reflux disease) chronic Hypertension chronic [facility] Work Phone: Evaluation note Note Date & Type Note Facility Evaluation note Diagnosis Onset Date Chronic sinusitis chronic GERD (gastroesophageal reflux disease) chronic Hypertension chronic Seasonal allergies chronic Screening for thyroid disorder acute Seasonal affective disorder acute Bipolar 1 disorder chronic GERD (gastroesophageal reflux disease) chronic Hypertension chronic [facility] Work Phone: Evaluation note Note Date & Type Note Facility Evaluation note Diagnosis Onset Date Screening for thyroid disorder acute Seasonal affective disorder acute Bipolar 1 disorder chronic GERD (gastroesophageal reflux disease) chronic Hypertension chronic [facility] Work Phone: Reason for referral (narrative) Note Date & Type Note Facility Reason for referral (narrative) No reason for referral information available [facility] Work Phone: Summary Purpose Family History No Family History Records Found Relationship Condition Age at Onset Recorded Date/T lewis Not Specified Arthritis Unknown Depression Unknown father Malignant neoplasm of colon Unknown mother Osteoporosis Unknown Malignant neoplasm Unknown Diabetes mellitus Unknown Advance Directives No Advanced Directives Records Found Advance Directive Response Recorded Date/ Time Living Will No February 16, 2024 6:14pm Power of Mold Technician No February 15 6:14pm Advance Directive Response Recorded Date/ Time Living Will No February 16, 2024 6:14pm Do you have a Healthcare Power of Mold Technician? No February 16, 2024 6:14pm Advance Directive Response Recorded Date/ Time Do you have a Healthcare Power of Mold Technician? No April 04, 2025 2:02pm Chief Complaint and Reason for Visit Chief Complaint 3 M FU 3 M FU Reason for Visit UTI (urinary tract i nfection) Hypertension Burning with urination GERD (gastroesophageal reflux disease) Hypertension Seasonal allergies Chief Complaint 3 M FU Reason for Visit Tobacco abuse Chronic sinusitis GERD (gastroesophageal reflux disease) Hypertension Chief Complaint 3 M FU 3 M FU Reason for Visit Chronic sinusitis GERD (gastroesophageal reflux disease) Hypertension Seasonal allergies Screening for thyroid disorder Seasonal affective disorder Bipolar 1 disorder GERD (gastroesophageal reflux disease) Hypertension Chief Complaint 3 M FU SOB Reason for Visit Screening for thyroi d disorder Seasonal affective disorder Bipolar 1 disorder GERD (gastroesophageal reflux disease) Hypertension Chief Complaint Admit Date 4 M FU November 14, 2024 2:12pm 3 M FU February 20, 2025 2:02 pm Reason for Visit Admit Date Chronic sinusitis November 14, 2024 2:12pm GERD (gastroesophageal reflux disease) D ecember 2023 2:12pm Hypertension November 14, 2024 2:12pm Bipolar 1 disorder February 20, 2025 2:02 pm Chronic sinusitis February 20, 2025 2:02 pm GERD (gastroesophageal reflux disease) A pril 2024 2:02pm Hypertension February 20, 2025 2:02 pm Obesity (BMI 30.0-34.9) February 20, 2025 2:02pm Chief Complaint Admit Date 3 M FU February 20, 2025 2:02 pm abd pain April 04, 2025 2:01p m Reason for Visit Admit Date Bipolar 1 disorder February 20, 2025 2:02 pm Chronic sinusitis February 20, 2025 2:02 pm GERD (gastroesophageal reflux disease) A pril 2024 2:02pm Hypertension February 20, 2025 2:02 pm Obesity (BMI 30.0-34.9) February 20, 2025 2:02pm Chief Complaint Admit Date 3 M FU February 20, 2025 2:02 pm abd pain April 04, 2025 2:01p m CONCERN FOR UTI April 07, 2025 2:20p m Additional Source Comments INFORMATION SOURCE (unrecogn ized section and content) DATE CREATED AUTHOR 02/08/2019 [facility] DATE CREATED AUTHOR AUTHOR'S ORGANIZ ATION 04/15/2025 Per [facility] y [facility] Care Teams (unrecognized sec tion and content) Team Status: Active Member Role Status Dates Dr. Yoon Blevins MD Primary Care Provider Active Team Status: Inactive Member Role Status Dates Dr. Yoon Blevins MD Primary Care P josé miguel, Attending Provider, Referring Provider Active Team Status: Inactive Member Role Status Dates Dr. Yoon Blevins MD Primary Care Provider, Atten ding Provider Active Team Status: Inactive Member Role Status Dates Dr. Yoon Blevins MD Primary Care Provider Active Dr. Karl Block DO Emergency Provider Active Team Status: Inactive Member Role Status Dates Dr. Yoon Blevins MD Primary Care Provider Active Start: November 14, 2024 End: November 14, 2024 Dr. Yoon Blevins MD Attending Provider Active Start: November 14, 2024 End: November 14, 2024 Dr. Yoon Blevins MD Referring Provider Active Start: November 14, 2024 End: November 14, 2024 Team Status: Inactive Member Role Status Dates Dr. Yoon Blevins MD Primary Care Provider Active Start: February 20, 2025 End: February 20, 2025 Dr. Yoon Blevins MD Attending Provider Active Start: February 20, 2025 End: February 20, 2025 Dr. Yoon Blevins MD Referring Provider Active Start: February 20, 2025 End: February 20, 2025 Team Status: Inactive Member Role Status Dates Dr. Yoon Blevins MD Primary Care Provider Active Start: April 04, 2025 End: April 04, 2025 Александр Koenig MD Emergency Provider Active Star t: April 04, 2025 End: April 04, 2025 Team Status: Inactive Member Role Status Dates Dr. Yoon Blevins MD Primary Care Provider Active Start: April 07, 2025 End: April 07, 2025 Dr. Yoon Blevins MD Referring Provider Active Start: April 07, 2025 End: April 07, 2025 ADRIANA Lake Attending Provider Active Start: April 07, 2025 End: April 07, 2025 Team Status: Inactive Member Role Status Dates Dr. Yoon Blevins MD Primary Care Provider Active Start: April 04, 2025 End: April 04, 2025 Александр Koenig MD Attending Provider Active Star t: April 04, 2025 End: April 04, 2025 Александр Koenig MD Emergency Provider Active Star t: April 04, 2025 End: April 04, 2025 Team Status: Inactive Member Role Status Dates Dr. Yoon Blevins MD Primary Care Provider Active Start: April 07, 2025 End: April 07, 2025 ADRIANA Lake Attending Provider Active Start: April 07, 2025 End: April 07, 2025 Goals (unrecognized section and content) Goals may be documented in a n alternate sectionGoals may be documented in an alternate sectionGoals may be documented in an alternate sectionGoals may be documented in an alternate sectionGoals may be documented in an alternate sectionGoals may be documented in an alternate sectionGoals may be documented in an alternate sectionGoals may be documented in an alternate section FOR RECORDS PERTAINING TO PATIENTS WHO ARE [...] BE BASED ON THE PRIMARY CLINICAL RECORDS. [employer] provides no warranty or guarantee of the accuracy or completeness of information in this document.
[2025-04-22 22:20] LABS: Calcium Oxalate Crystals Ur 2+ /hpf (<or=2+); Red Blood Cells-Urine 0-5 SEEN /hpf (0-5); Squamous Epithelial Cells - UA 10-25 SEEN /hpf (5-10); White Blood Cells 10-25 SEEN /hpf (0-5)
== END | disposition home or self-care (01) ==
LOC: LABSPEC 11:09
PROVIDERS: PCP Internal Medicine; Referring Provider Physician Assistant; Visit Provider Physician Assistant
DX: N39.0 Urinary tract infection, site not specified (principal); R30.0 Dysuria
CPT/HCPCS: 81001; 87086; 87088

== ENCOUNTER → 2025-06-26 | Outpatient (CLI) | payer BC, SELFPAY ==
[2025-06-26 12:03] LABS: Mucous, Urine 0 SEEN /hpf (<or=2+)
[2025-06-26 15:46] LABS: Color, Urine Straw (Yellow); Glucose, Dipstick Normal (Normal); Hematocrit 41.5 % (37-47); Hemoglobin 13.6 g/dL (12.0-15.0); Immature Granulocytes Count 0.040 X10^3/uL (0.0-0.0); Ketone-Dipstick 5 mg/dl (Negative); Leukocyte Esterase-Dipstick 100 /ul (Negative); Mean Corp Hgb Conc 32.8 g/dL (32-36); Mean Corpuscular Volume 85.4 fL (81-99); Mean Platelet Vol. 11.0 fl (6.2-12.0); NRBC Flagged by Analyzer 0 % (0-5); Nitrite-Dipstick Negative (Negative); Occult Blood-Urine 10 /ul (Negative); Platelet Count 436 K/mm3 (150-450); Protein-Dipstick 30 mg/dl (Negative); RBC Distribution Width CV 13.2 % (11.6-14.6); RBC Distribution Width SD 41.1 fl (35.1-43.9); Red Blood Count 4.86 M/mm3 (4.2-5.4); Specific Gravity, Urine 1.025 (1.002-1.030); Urine Bilirubin Dipstick Negative (Negative); White Blood Count 12.5 K/mm3 (4.4-11.0)
[2025-06-26 16:07] LABS: AST(SGOT) 17 U/L (<=31); Alanine Aminotransfer ALT/SGPT 22 U/L (<=34); Albumin, Serum 4.2 g/dL (3.5-5.0); Alkaline Phosphatase 100 U/L (35-104); Anion Gap 14 (5-15); BUN 15 mg/dL (4-19); BUN/Creat Ratio 21.3 RATIO (10-20); Calcium,Total 9.6 mg/dL (7.6-11.0); Carbon Dioxide 21.5 mmol/L (21.0-32.0); Chloride 102 mmol/L (98-108); Globulin 2.7 g/dL (2.2-4.2); Glucose 112 mg/dL (70-99); Potassium 3.5 mmol/L (3.3-5.1)
[2025-06-26 16:28] LABS: Calcium Oxalate Crystals Ur 3+ /hpf (<or=2+); Red Blood Cells-Urine 5-10 SEEN /hpf (0-5); Squamous Epithelial Cells - UA 5-10 SEEN /hpf (5-10)
== END | disposition home or self-care (01) ==
LOC: MTLAB 11:56
PROVIDERS: PCP Internal Medicine; Referring Provider Internal Medicine; Visit Provider Internal Medicine
DX: R39.11 Hesitancy of micturition (principal); N20.0 Calculus of kidney; I10 Essential (primary) hypertension
CPT/HCPCS: 36415; 80053; 81001; 85025; 87086; 87088